=== PATIENT | male | born 1960 | race Caucasian/White ===

== ENCOUNTER 2017-11-07 08:00 | Outpatient (CLI) | payer MEDICAID ==
[2017-11-08 11:12] LABS: MUDS CUTOFF CONCENTRATIONS CUTOFF CONC BELOW:
[2017-11-08 11:26] LABS: AMPHETAMINE SCREEN,URINE NEGATIVE (NEGATIVE); BENZODIAZEPINES SCREEN, URINE NEGATIVE (NEGATIVE); COCAINE SCREEN URINE NEGATIVE (NEGATIVE); METHADONE SCREEN, URINE NEGATIVE (NEGATIVE); METHAMPHETAMINES SCREEN, URINE NEGATIVE (NEGATIVE); OPIATE SCREEN, URINE NEGATIVE (NEGATIVE); OXYCODONE SCREEN, URINE NEGATIVE (NEGATIVE); PROPOXYPHENE SCREEN, URINE NEGATIVE (NEGATIVE); TRICYCLIC ANTIDEPRESSANT,URINE NEGATIVE (NEGATIVE)
== END 2017-11-07 23:59 | disposition home or self-care (01) ==
LOC: LAB.R 08:00
PROVIDERS: ATTEND Nurse Practitioner Family
DX: F90.0 Attention-deficit hyperactivity disorder, predominantly inattentive type (principal)
CPT/HCPCS: 80306

== ENCOUNTER 2018-03-06 14:38 | Outpatient (CLI) | payer MEDICAID ==
[2018-03-06 14:54] LABS: MUDS CUTOFF CONCENTRATIONS CUTOFF CONC BELOW:
[2018-03-06 15:09] LABS: AMPHETAMINE SCREEN,URINE POSITIVE (NEGATIVE); BENZODIAZEPINES SCREEN, URINE NEGATIVE (NEGATIVE); COCAINE SCREEN URINE NEGATIVE (NEGATIVE); METHADONE SCREEN, URINE NEGATIVE (NEGATIVE); METHAMPHETAMINES SCREEN, URINE POSITIVE (NEGATIVE); OPIATE SCREEN, URINE NEGATIVE (NEGATIVE); OXYCODONE SCREEN, URINE NEGATIVE (NEGATIVE); PROPOXYPHENE SCREEN, URINE NEGATIVE (NEGATIVE); TRICYCLIC ANTIDEPRESSANT,URINE NEGATIVE (NEGATIVE)
[2018-03-06 15:27] LABS: BASOPHILS # (AUTO) 0.1 10^3/uL (0.0-0.1); BASOPHILS % (AUTO) 0.8 %; EOSINOPHILS # (AUTO) 0.1 10^3/uL (0.0-0.7); EOSINOPHILS % (AUTO) 2.3 %; HGB - HEMOGLOBIN 16.5 g/dL (14.0-18.0); LYMPHOCYTES # (AUTO) 2.3 10^3/uL (1.5-3.5); LYMPHOCYTES % (AUTO) 35.2 %; MEAN CORPUSCULAR HEMOGLOBIN 30.8 pg (27.0-31.0); MEAN CORPUSCULAR HGB CONC 33.7 g/dL (32.0-36.0); MEAN CORPUSCULAR VOLUME 91.3 fL (80.0-94.0); MEAN PLATELET VOLUME 7.7 fL (7.4-11.4); MONOCYTES # (AUTO) 0.7 10^3/uL (0.0-1.0); MONOCYTES % (AUTO) 10.5 %; NEUTROPHILS # (AUTO) 3.4 10^3/uL (1.5-6.6); NEUTROPHILS % (AUTO) 51.2 %; PLT - PLATELET COUNT 219 10^3/uL (130-450); RED BLOOD COUNT 5.36 10^6/uL (4.70-6.10); RED CELL DISTRIBUTION WIDTH 13.7 % (12.0-15.0); WHITE BLOOD COUNT 6.6 x10^3/uL (4.8-10.8)
[2018-03-06 15:38] LABS: ALBUMIN 4.2 g/dL (3.2-5.5); ALBUMIN/GLOBULIN RATIO 1.4 (1.0-2.2); ALKALINE PHOSPHATASE 66 IU/L (42-121); ALT ALANINE AMINOTRANSFERASE 31 IU/L (10-60); AST ASPARTATE AMINOTRANSFERASE 29 IU/L (10-42); BILIRUBIN,TOTAL 0.4 mg/dL (0.2-1.0); BUN - BLOOD UREA NITROGEN 18 mg/dL (6-20); CALCIUM 9.2 mg/dL (8.5-10.3); CARBON DIOXIDE - CO2 23 mmol/L (21-32); CHLORIDE 105 mmol/L (101-111); CREATININE 0.8 mg/dL (0.6-1.2); GFR - MDRD 100 (>89); GLUCOSE 106 mg/dL (70-100); SODIUM 137 mmol/L (135-145); TOTAL PROTEIN 7.2 g/dL (6.7-8.2)
[2018-03-07 12:47] LABS: HEPATITIS C ANTIBODY REACTIVE (NON-REACTIVE)
== END 2018-03-06 14:39 | disposition home or self-care (01) ==
LOC: LAB 14:38
PROVIDERS: ATTEND Nurse Practitioner Family
DX: F41.9 Anxiety disorder, unspecified (principal); F98.8 Other specified behavioral and emotional disorders with onset usually occurring in childhood and adolescence; Z11.59 Encounter for screening for other viral diseases
CPT/HCPCS: 36415; 80053; 80306; 84443; 85025; 86803

== ENCOUNTER 2019-04-23 17:35 | Outpatient (CLI) | payer MEDICAID ==
[2019-04-23 18:03] LABS: INR 1.1 (0.8-1.2)
--- NOTE | 2019-04-26 10:05 | Ultrasound Report ---
Reason: HEPATITIS C VIRAL W/O HEPATIC COMA Procedure Date: 04/23/2019 Accession Number: [id number] / [id number] Procedure: US - Abdomen Limited CPT Code: FULL RESULT: EXAM: ABDOMEN ULTRASOUND LIMITED, RUQ EXAM DATE: 04/23/2019 06:56 PM CLINICAL HISTORY: Hepatitis C viral without hepatic coma. COMPARISON: None. TECHNIQUE: Real-time scanning was performed with static images obtained. FINDINGS: Liver: Mildly coarse and heterogeneous hepatic parenchyma. Numerous hepatic cysts are seen, the largest in the left lobe measuring 1.5 x 1.2 cm and largest in the right lobe measuring 2.4 x 2.1 cm. Ill-defined echogenic focus is seen in the left lobe laterally measuring 0.7 x 0.7 x 0.6 cm and medially 0.6 x 0.8 x 0.6 cm. No intrahepatic ductal dilatation. The liver is not enlarged, 15.6 cm. Main portal vein flow: Hepatopetal. Gallbladder: There is a single mobile gallstone in the gallbladder measuring 0.9 cm. No gallbladder wall thickening. No pericholecystic fluid. Biliary System: CBD measures 5 mm. No intrahepatic or extrahepatic ductal dilatation. Other: The visualized pancreas is unremarkable. Right kidney is normal in contour and echotexture and measures 10.9 cm in maximal length. No hydronephrosis. No renal calculi. No renal masses. IMPRESSION: 1. Mildly heterogeneous and coarse hepatic parenchyma, findings which may be related to patient's history of hepatitis C. Hepatic cysts. Echogenic ill-defined areas within the liver parenchyma in the left lobe indeterminate. Considering patient's history further detail with MRI of the liver recommended. 2. Cholelithiasis. 3. No biliary ductal dilatation. RADIA
[2019-04-26 16:57] LABS: HEPATITIS C VIRAL RNA GENOTYPE 1a
== END 2019-04-23 17:36 | disposition home or self-care (01) ==
LOC: DI 17:35
PROVIDERS: ATTEND Internal Medicine Gastroenterology
DX: B19.20 Unspecified viral hepatitis C without hepatic coma (principal); K76.89 Other specified diseases of liver; K80.20 Calculus of gallbladder without cholecystitis without obstruction
CPT/HCPCS: 36415; 76705; 85610; 87522; 87902

== ENCOUNTER 2019-05-15 12:51 | Outpatient (CLI) | payer MEDICAID ==
[2019-05-15] MEDS ORDERED: GADOBUTROL 15 MMOL/15 ML VIAL ONE (13:32)
[2019-05-15] MEDS ORDERED: GADOBUTROL 15 MMOL/15 ML VIAL IVP ONE (14:14)
--- NOTE | 2019-05-17 09:56 | MRI Report ---
Reason: ABN ABD IMAGING/LIVER,LESIONS,HEP C VIRAL W/O HEPA Procedure Date: 05/15/2019 Accession Number: [id number] / [id number] Procedure: MRI - Abdomen W/WO CPT Code: FULL RESULT: EXAM: MR ABDOMEN WITH AND WITHOUT CONTRAST EXAM DATE: 05/15/2019 02:21 PM. CLINICAL HISTORY: Abnormal abdominal imaging/liver, lesions, Hep C viral without HEPA. COMPARISON: ABDOMEN LIMITED 04/23/2019 6:19 PM CHEST W/ 11/13/2015 12:09 PM. TECHNIQUE: Multiplanar breath-hold T1, T2, and DWI sequences obtained through the liver and abdomen on an MR scanner. Images obtained before and after administration of 10 cc Gadavist intravenous contrast. Multiphase postcontrast sequences obtained through the liver. FINDINGS: Lung Bases: Unremarkable. Liver: There are numerous liver cysts, unchanged since prior studies. These do not enhance. There is a 0.7 cm arterial phase enhancing nodule in segment 3 on (1001/66) which remains hyperenhancing to liver parenchyma on venous and delayed phases. Most consistent with a flash filling hemangioma. No additional arterial phase enhancing lesions. There is a delayed phase 0.7 cm hyperenhancing nodule in segment 2/3 on (1301/81), likely an additional small hemangioma. No additional suspicious enhancing lesions are seen within the liver. No biliary dilatation. Gallbladder: The gallbladder is partially distended and appears normal with no wall thickening or stone. Bile Ducts: No intrahepatic or extrahepatic duct dilatation. Pancreas: The pancreas appears normal with no mass. The pancreatic duct measures 2 mm in diameter and appears normal with no stone or stricture. Spleen: The spleen appears normal. Kidneys: The kidneys appear normal with no mass or hydronephrosis. Adrenals: The adrenals appear normal. Bowel: The visualized segments of the small bowel and colon appear normal with no inflammation or obstruction. Retroperitoneum: The retroperitoneal structures appear normal with no mass or lymphadenopathy. Other: None. IMPRESSION: 1. Two enhancing liver lesions in segment 2 and 3 appear to be small hemangiomas and appear benign. 2. No suspicious arterial phase enhancing lesions are seen. 3. Multiple liver cysts, stable. RADIA
== END 2019-05-15 12:52 | disposition home or self-care (01) ==
LOC: DI 12:51
PROVIDERS: ATTEND Internal Medicine
DX: K76.89 Other specified diseases of liver (principal); B19.20 Unspecified viral hepatitis C without hepatic coma; R93.5 Abnormal findings on diagnostic imaging of other abdominal regions, including retroperitoneum
CPT/HCPCS: 74183; A9585

== ENCOUNTER 2019-07-29 16:27 | Outpatient (CLI) | payer MEDICAID ==
[2019-07-29 16:44] LABS: BASOPHILS % (AUTO) 0.4 %; EOSINOPHILS # (AUTO) 0.1 10^3/uL (0.0-0.7); EOSINOPHILS % (AUTO) 1.9 %; HGB - HEMOGLOBIN 14.7 g/dL (14.0-18.0); LYMPHOCYTES % (AUTO) 37.5 %; MEAN CORPUSCULAR HEMOGLOBIN 29.2 pg (27.0-31.0); MEAN CORPUSCULAR HGB CONC 32.5 g/dL (32.0-36.0); MEAN CORPUSCULAR VOLUME 89.9 fL (80.0-94.0); MEAN PLATELET VOLUME 8.8 fL (7.4-11.4); MONOCYTES # (AUTO) 0.6 10^3/uL (0.0-1.0); MONOCYTES % (AUTO) 11.1 %; NEUTROPHILS # (AUTO) 2.6 10^3/uL (1.5-6.6); NEUTROPHILS % (AUTO) 48.9 %; PLT - PLATELET COUNT 146 10^3/uL (130-450); RED BLOOD COUNT 5.03 10^6/uL (4.70-6.10); RED CELL DISTRIBUTION WIDTH 13.5 % (12.0-15.0); WHITE BLOOD COUNT 5.3 x10^3/uL (4.8-10.8)
[2019-07-29 17:01] LABS: ALBUMIN 4.3 g/dL (3.2-5.5); ALBUMIN/GLOBULIN RATIO 1.5 (1.0-2.2); BILIRUBIN,TOTAL 1.1 mg/dL (0.2-1.0); CALCIUM 9.1 mg/dL (8.5-10.3); TOTAL PROTEIN 7.1 g/dL (6.7-8.2)
== END 2019-07-29 16:28 | disposition home or self-care (01) ==
LOC: LAB 16:27
PROVIDERS: ATTEND Internal Medicine
DX: B19.20 Unspecified viral hepatitis C without hepatic coma (principal)
CPT/HCPCS: 36415; 80053; 85025; 87522

== ENCOUNTER 2019-09-11 09:46 | Outpatient (CLI) | payer MEDICAID ==
[2019-09-11 10:26] LABS: ALBUMIN 3.9 g/dL (3.2-5.5); BILIRUBIN,DIRECT 0.1 mg/dL (0.1-0.5); BILIRUBIN,TOTAL 0.5 mg/dL (0.2-1.0); TOTAL PROTEIN 6.7 g/dL (6.7-8.2)
== END 2019-09-11 09:47 | disposition home or self-care (01) ==
LOC: LAB 09:46
PROVIDERS: ATTEND Internal Medicine
DX: B19.20 Unspecified viral hepatitis C without hepatic coma (principal)
CPT/HCPCS: 36415; 80076; 87522

== ENCOUNTER 2021-08-15 14:42 | Emergency (ER) | payer MEDICAID ==
[2021-08-15] MEDS ORDERED: oxyCODONE 5 MG TABLET PO STA (14:55)
[2021-08-15] MEDS ORDERED: LIDOCAINE 1%-EPI 1:100000 20 ML MDV SUBQ STA (14:55)
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
--- NOTE | 2021-08-15 15:30 | CT Report ---
PROCEDURE: HEAD WO INDICATIONS: head inj TECHNIQUE: Noncontrast 4.5 mm thick angled axial sections acquired from the foramen magnum to the vertex. For r adiation dose reduction, the following was used: automated exposure control, adjustment of mA and/or kV according to patient size. COMPARISON: None. FINDINGS: Image quality: Excellent. CSF spaces: Basal cisterns are patent. No extra-axial fluid collections. Ventricles are normal in size and shape. Brain: No midline shift. No intracranial masses or hemorrhage. Colin-white matter interface is norm al. Skull and face: Calvarium and visualized facial bones are intact, without suspicious lesions. Sinuses: Visualized sinuses and mastoids are clear. IMPRESSION: No acute intracranial abnormality. Reviewed by: Sukhdeep Boucher on 08/15/2021 2:29 PM [facility] Approved by: Sukhdeep Boucher on 08/15/2021 2:29 PM [facility] Station ID: [id number]
--- NOTE | 2021-08-15 15:33 | CT Report ---
PROCEDURE: MAXILLOFACIAL WO INDICATIONS: facial inj TECHNIQUE: Noncontrast 1.5 mm thick axial images acquired from the mandible through the frontal sinuses, with co myah and sagittal reformatting. For radiation dose reduction, the following was used: automated ex posure control, adjustment of mA and/or kV according to patient size. COMPARISON: None. FINDINGS: Image quality: Excellent. Bones and teeth: Orbital butler are intact. Sinus butler show no fracture or deformity. Nasal bones and septum are intact. Visualized portions of the mandible demonstrate no fractures or subluxation. Zygomatic arches are intact. Pterygoid plates are intact. Visualized portions of the skull base an d auditory canals are intact. Sinuses: Paranasal sinuses are aerated, without fluid levels, mucosal thickening, or mucoceles. Mas toid air cells are aerated. Soft tissues: No edema, masses, or fluid collections. No enlarged lymph nodes. No soft tissue lace rations or debris. Vascular: Visualized vascular structures appear normal in the absence of contrast. Bony vascular fo ramina and canals are intact. IMPRESSION: No traumatic abnormality of the maxillofacial bones. Reviewed by: Sukhdeep Boucher on 08/15/2021 2:32 PM [facility] Approved by: Sukhdeep Boucher on 08/15/2021 2:32 PM [facility] Station ID: [id number]
--- NOTE | 2021-08-15 15:35 | CT Report ---
PROCEDURE: CERVICAL SPINE WO INDICATIONS: head inj TECHNIQUE: Noncontrast 3 mm thick sections acquired from the skull base to the T4 level. Sagittal and coronal r eformats were then constructed. For radiation dose reduction, the following was used: automated exp osure control, adjustment of mA and/or kV according to patient size. COMPARISON: None. FINDINGS: Image quality: Excellent. Bones: No fractures or dislocations. Visualized superior ribs are intact. Degenerative disc diseas e at C4-5, C5-6, and C6-7. Soft tissues: Prevertebral soft tissues are normal in thickness. No paravertebral hematomas. No ap ical pneumothoraces. IMPRESSION: 1. Degenerative disc disease at C4-5, C5-6, and C6-7. 2. No acute traumatic abnormality of the cervical spine. Reviewed by: Sukhdeep Boucher on 08/15/2021 2:34 PM [facility] Approved by: Sukhdeep Boucher on 08/15/2021 2:34 PM [facility] Station ID: [id number]
[2021-08-15 15:51] VITALS: BP 107/86
== END 2021-08-15 15:51 | disposition home or self-care (01) ==
LOC: ED 14:42
DX: S01.81XA Laceration without foreign body of other part of head, initial encounter (principal); S09.90XA Unspecified injury of head, initial encounter; W18.39XA Other fall on same level, initial encounter; Y93.01 Activity, walking, marching and hiking; Y92.009 Unspecified place in unspecified non-institutional (private) residence as the place of occurrence of the external cause; Z87.891 Personal history of nicotine dependence
CPT/HCPCS: 12011; 70450; 70486; 72125; 99282; 99284; A9270; 80053; 80320; 85025

== ENCOUNTER 2022-04-24 22:23 | Outpatient (CLI) | payer MEDICAID | END 2022-04-24 22:24 | disposition critical access hospital (66) | LOC: EMS 22:23 | DX: R07.81 Pleurodynia (principal) | CPT/HCPCS: A0425; A0427; A0999 ==

== ENCOUNTER 2022-04-24 22:33 | Emergency (ER) | payer MEDICAID ==
[2022-04-24] MEDS ORDERED: ONDANSETRON 4 MG/2 ML VIAL IVP STA (22:58)
[2022-04-24] MEDS ORDERED: SODIUM CHLORIDE 0.9% 1,000 ML IV STA (22:58)
[2022-04-24] MEDS ORDERED: HYDROmorphone 1 MG/ML CARPUJECT IVP STA (22:58)
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
[2022-04-24 23:18] LABS: BASOPHILS % (AUTO) 0.5 %; EOSINOPHILS # (AUTO) 0.2 10^3/uL (0.0-0.7); EOSINOPHILS % (AUTO) 2.6 %; HCT - HEMATOCRIT 41.6 % (42.0-52.0); HGB - HEMOGLOBIN 14.1 g/dL (14.0-18.0); LYMPHOCYTES # (AUTO) 1.1 10^3/uL (1.5-3.5); LYMPHOCYTES % (AUTO) 17.1 %; MEAN CORPUSCULAR HGB CONC 33.9 g/dL (32.0-36.0); MEAN CORPUSCULAR VOLUME 91.4 fL (80.0-94.0); MEAN PLATELET VOLUME 8.9 fL (7.4-11.4); MONOCYTES # (AUTO) 0.6 10^3/uL (0.0-1.0); MONOCYTES % (AUTO) 9.4 %; NEUTROPHILS # (AUTO) 4.4 10^3/uL (1.5-6.6); NEUTROPHILS % (AUTO) 70.1 %; PLT - PLATELET COUNT 152 10^3/uL (130-450); RED BLOOD COUNT 4.55 10^6/uL (4.70-6.10); RED CELL DISTRIBUTION WIDTH 14.4 % (12.0-15.0); WHITE BLOOD COUNT 6.3 x10^3/uL (4.8-10.8)
[2022-04-24 23:23] LABS: PT - PROTHROMBIN TIME 11.4 secs (9.9-12.6)
[2022-04-24 23:29] LABS: ALBUMIN 4.2 g/dL (3.2-5.5); ALBUMIN/GLOBULIN RATIO 1.4 (1.0-2.2); BILIRUBIN,TOTAL 1.1 mg/dL (0.2-1.0); CALCIUM 8.9 mg/dL (8.5-10.3); CREATININE 0.9 mg/dL (0.6-1.2); POTASSIUM 3.7 mmol/L (3.5-5.0); TOTAL PROTEIN 7.1 g/dL (6.7-8.2)
--- NOTE | 2022-04-25 00:20 | CT Report ---
PROCEDURE: HEAD WO INDICATIONS: trauma TECHNIQUE: Noncontrast 4.5 mm thick angled axial sections acquired from the foramen magnum to the vertex. For r adiation dose reduction, the following was used: automated exposure control, adjustment of mA and/or kV according to patient size. COMPARISON: 08/15/2021. FINDINGS: Image quality: Excellent. CSF spaces: Basal cisterns are patent. No extra-axial fluid collections. Ventricles are normal in size and shape. Brain: No intracranial hemorrhage, mass, or mass effect. Colin-white matter interface appears preser miguelangel. Skull and face: Calvarium and visualized facial bones are intact, without suspicious lesions. Sinuses: Visualized sinuses and mastoids are clear. IMPRESSION: 1. No acute intracranial abnormality. Reviewed by: Juan C Zamudio MD on 04/25/2022 12:18 AM PDT Approved by: Juan C Zamudio MD on 04/25/2022 12:18 AM PDT Station ID: [id number]
--- NOTE | 2022-04-25 00:22 | CT Report ---
PROCEDURE: CERVICAL SPINE WO INDICATIONS: trauma TECHNIQUE: Noncontrast 3 mm thick sections acquired from the skull base to the T4 level. Sagittal and coronal r eformats were then constructed. For radiation dose reduction, the following was used: automated exp osure control, adjustment of mA and/or kV according to patient size. COMPARISON: CT C-spine 08/15/2021. FINDINGS: Image quality: Excellent. Bones: No fractures or traumatic subluxation. There is slight reversal of the cervical lordosis rede monstrated. There is minimal retrolisthesis at C2-C3 and C3-C4. Multilevel degenerative disc disease and facet joint arthropathy are again noted. Visualized superior ribs are intact. Soft tissues: Prevertebral soft tissues are normal in thickness. No paravertebral hematomas. No ap ical pneumothoraces. IMPRESSION: 1. No acute fracture or subluxation. Reviewed by: Juan C Zamudio MD on 04/25/2022 12:21 AM PDT Approved by: Juan C Zamudio MD on 04/25/2022 12:21 AM PDT Station ID: [id number]
[2022-04-25] MEDS ORDERED: HYDROmorphone 1 MG/ML CARPUJECT IVP STA ×2 (00:23→01:30)
--- NOTE | 2022-04-25 00:30 | CT Report ---
PROCEDURE: CHEST W INDICATIONS: trauma CONTRAST: IV CONTRAST: Optiray 320 ml: 100 PO CONTRAST: *NO PO CONTRAST TECHNIQUE: After the administration of intravenous contrast, 1 mm axial images were acquired from the pulmonary apices through the posterior costophrenic angles. Axial 5 mm soft tissue kernel reconstructions were performed as well as 8 mm axial MIP and coronal and sagittal 5 mm reformations. For radiation dose reduction, the following was used: automated exposure control, adjustment of mA and/or kV according to patient size. COMPARISON: CT chest 11/13/2015. FINDINGS: Image quality: Excellent. Lower Neck: No lymphadenopathy by size criteria. Thyroid: Visualized thyroid demonstrates no discrete nodules. Axillae: No lymphadenopathy by size criteria. Chest Wall: Unremarkable. Bones: There are minimally displaced fractures of the left fifth through seventh ribs anterolaterally . Visualized osseous structures demonstrate no suspicious lesions. Lungs and Airways: No pulmonary contusions or lacerations. There are severe paraseptal and centrilobu lar exhibits changes. Mild linear atelectasis is demonstrated within the right middle lobe along the major fissure. Mild dependent atelectasis also demonstrated bilaterally in the lower lobes. The trach ea and central airways are patent. Pleura: There is a small left pleural effusion. No pneumothorax. Heart: Heart size is normal. No pericardial effusion. Thoracic Vessels: There is mild aneurysmal dilatation of the thoracic aorta. The ascending aorta billy ures up to 4.0 cm in diameter. The aortic arch measures up to 3.5 cm at the vertex. The proximal desc ending thoracic aorta measures up to 3.0 cm. The distal descending thoracic aorta measures up to 2.5 cm at the level of the diaphragmatic hiatus. Pulmonary arteries appear within normal size limits. Mediastinum and Naomi: No lymphadenopathy by size criteria. Esophagus: No wall thickening. No hiatal hernia. Abdomen: Visualized upper abdomen demonstrates multiple hepatic cysts as well as additional small lo w-density foci within the partially visualized liver which are too small to characterize but likely r epresent cysts. IMPRESSION: 1. Minimally displaced fractures of the left fifth through seventh ribs. 2. Small left pleural effusion. No evidence of pneumothorax. 3. Severe centrilobular and paraseptal emphysematous changes redemonstrated bilaterally. Reviewed by: Juan C Thacker MD on 04/25/2022 12:29 AM PDT Approved by: Juan C Thacker MD on 04/25/2022 12:29 AM PDT Station ID: [id number]
--- NOTE | 2022-04-25 00:35 | CT Report ---
PROCEDURE: Abdomen/Pelvis W INDICATIONS: trauma CONTRAST: IV CONTRAST: Optiray 320 ml: 100 PO CONTRAST: *NO PO CONTRAST TECHNIQUE: After the administration of intravenous contrast, 5 mm thick sections acquired from the diaphragms to the symphysis. 5 mm thick coronal and sagittal reformats were acquired. For radiation dose reducti on, the following was used: automated exposure control, adjustment of mA and/or kV according to lit ent size. COMPARISON: Concurrent CT of the chest. FINDINGS: Image quality: Excellent. Lung bases:There are centrilobular and paraseptal emphysematous changes within the visualized lung b ases. Bibasilar areas of atelectasis and scarring are demonstrated. There is a small left pleural eff usion. Heart: Heart is normal in size. ABDOMEN: Liver:No evidence of hepatic laceration or hematoma. Numerous hepatic cysts are demonstrated as well as additional small low-density foci which are too small to characterize but likely represent cysts. Gallbladder: Within normal limits without calcified gallstones. Biliary ducts: No biliary ductal dilatation. Pancreas: Unremarkable. Spleen: Normal in size. No evidence of splenic laceration. Adrenal Glands: No adrenal nodules. Kidneys and Ureters: No hydronephrosis. There is a nonobstructing stone within the right kidney billy uring up to 0.3 cm. Stomach and Bowel: Stomach, small bowel loops, and colon are normal in caliber and wall thickness. T here is colonic diverticulosis without acute diverticulitis. Peritoneum: No abnormal intraperitoneal fluid. No free air. Ventral Wall: No hernia. Abdominal Nodes: No retroperitoneal or mesenteric adenopathy by size criteria. Vessels: Aorta and inferior vena cava are normal in size. PELVIS: Pelvic Organs:There is mild heterogeneous enlargement of the prostate.. Bladder: Unremarkable. Pelvic Nodes: No enlarged lymph nodes. Miscellaneous: There are small bilateral fat-containing inguinal hernias. Bones: Visualized osseous structures demonstrate no suspicious focal lesions. IMPRESSION: 1. No acute traumatic abnormality within the abdomen and pelvis. Reviewed by: Juan C Zamudio MD on 04/25/2022 12:34 AM PDT Approved by: Juan C Zamudio MD on 04/25/2022 12:34 AM PDT Station ID: [id number]
[2022-04-25] MEDS ORDERED: GABAPENTIN 100 MG CAPSULE PO STA (00:37)
[2022-04-25] MEDS ORDERED: LIDOCAINE PATCH 5% TOP STA (00:38)
[2022-04-25] MEDS ORDERED: KETOROLAC 30 MG/ML VIAL IVP STA (00:38)
[2022-04-25] MEDS ORDERED: IPRATROPIUM/ALBUTEROL 3 ML NEB INH STA (01:00)
[2022-04-25] MEDS ORDERED: oxyCODONE/ACET 5/325 Prepack 4 PO STA (01:31)
[2022-04-25 01:42] VITALS: BP 146/96
== END 2022-04-25 01:47 | disposition home or self-care (01) ==
LOC: EDUNIT# → ED 22:33
DX: S22.42XA Multiple fractures of ribs, left side, initial encounter for closed fracture (principal); V28.4XXA Motorcycle driver injured in noncollision transport accident in traffic accident, initial encounter; Y93.55 Activity, bike riding; J43.9 Emphysema, unspecified; Z87.891 Personal history of nicotine dependence
CPT/HCPCS: 36415; 70450; 71260; 72125; 74177; 80053; 83690; 85025; 85610; 93005; 94640; 96361; 96374; 96375; 96376; 99284; 99285; A9270; J1170; Q9967

== ENCOUNTER 2023-02-07 18:28 | Outpatient (CLI) | payer MEDICAID | END 2023-02-07 18:29 | disposition critical access hospital (66) | LOC: EMS 18:28 | DX: R06.02 Shortness of breath (principal); R07.9 Chest pain, unspecified; M54.9 Dorsalgia, unspecified | CPT/HCPCS: A0425; A0429; A0999 ==

== ENCOUNTER 2023-02-07 18:39 | Emergency (ER) | payer MEDICAID ==
[2023-02-07] MEDS ORDERED: HYDROmorphone 0.5 MG/0.5 ML SYRINGE IVP STA (18:58)
[2023-02-07] MEDS ORDERED: KETOROLAC 15 MG/ML VIAL IVP STA (18:59)
[2023-02-07] MEDS ORDERED: IPRATROPIUM/ALBUTEROL 3 ML NEB INH STA (18:59)
--- NOTE | 2023-02-07 19:39 | ED Physician Documentation ---
PD HPI DYSPNEA - Stated complaint Stated Complaint: SOA - Chief complaint Chief Complaint: Cardiac - History obtained from History obtained from: Patient - Additional information Additional information: HPI from patient. Patient complains of chest pressure, across his anterior chest, associated with shortness of breath. He feels that the chest is tight and constricted. He feels that, overall, the symptoms are reminiscent of the symptoms associated with prior pneumothoraces. Symptoms were of rapid onset at 5 PM today while at home and at rest. The shortness of breath is exacerbated with exertion, partially relieved but not resolved with rest. Patient has COPD and uses 2 L nasal cannula of oxygen per minute most days and nights, "but only when I feel I really need it" (per patient). Review of Systems Constitutional: denies: Fever, Chills, Sweats Cardiac: reports: Chest pain / pressure. denies: Palpitations, Pedal edema Respiratory: reports: Dyspnea, Cough. denies: Wheezing GI: reports: Reviewed and negative PD PAST MEDICAL HISTORY - Past Medical History Cardiovascular: None Respiratory: Sleep apnea Endocrine/Autoimmune: None GI: None : None Psych: Depression, Anxiety, Panic attacks, ADD/ADHD, Claustrophobia Musculoskeletal: None Derm: None - Past Surgical History Past Surgical History: Yes HEENT: Tonsil/Adenoidectomy - Present Medications Home Medications: Ambulatory Orders Medication Instructions Recorded Confirmed Albuterol 2.5 mg INH Q4H PRN 04/24/22 04/24/22 Citalopram [CeleXA] 10 mg PO DAILY 04/24/22 04/24/22 Acetaminophen [Pain Relief] 650 mg PO Q8HR #60 tablet 04/25/22 Gabapentin [Neurontin] 100 mg PO TID #60 cap 04/25/22 Ibuprofen [Motrin] 1 tablet PO Q8H PRN #30 tablet 04/25/22 Lidocaine Patch 5% [Lidoderm Patch] 1 patch TOP DAILY #30 patch 04/25/22 oxyCODONE [Roxicodone] 5 mg PO Q6H PRN #10 tablet 04/25/22 - Allergies Allergies/Adverse Reactions: Allergies Allergy/AdvReac Type Severity Reaction Status Date / Time No Known Drug Allergies Allergy Verified 04/24/22 22:44 - Social History Does the pt smoke?: No Smoking Status: Former smoker Does the pt drink ETOH?: Yes PD ED PE NORMAL - Vitals Vital signs reviewed: Yes - General General: Alert and oriented X 3, No acute distress, Well developed/nourished - HEENT HEENT: Moist mucous membranes - Cardiac Cardiac: RRR, No murmur - Respiratory Respiratory: No respiratory distress - Extremities Extremities: No edema PD ED PE EXPANDED - Respiratory Respiratory: Decreased breath sounds (bilateral bases, more pronounced on right) Results - Vitals Vitals: Vital Signs - 24 hr 02/07/23 02/07/23 02/07/23 21:20 21:30 22:52 Heart Rate 100 94 104 H Respiratory 24 20 18 Rate Blood Pressure 107/82 H 107/82 H 117/86 H O2 Saturation 100 96 96 If not protocol 3 4 2 : Oxygen Flow, liters/minute Oxygen O2 Source Nasal cannula Oxygen Flow Rate 4 - EKG (time done) No standard instances EKG releavant findings:: EKG personally interpreted by author of this note. Relevant findings are: Rate: Rate (enter#) - Labs Labs: Laboratory Tests 02/07/23 02/07/23 02/07/23 20:00 20:00 20:00 WBC 9.7 RBC 3.75 L Hgb 11.0 L Hct 33.8 L MCV 90.1 MCH 29.3 MCHC 32.5 RDW 13.3 Plt Count 138 MPV 9.2 Neut # (Auto) 7.7 H Lymph # (Auto) 1.1 L [place] # (Auto) 0.8 Eos # (Auto) 0.1 Baso # (Auto) 0.0 Absolute Nucleated RBC 0.00 Nucleated RBC % 0.0 Sodium 137 Potassium 4.1 Chloride 104 Carbon Dioxide 26 Anion Gap 7.0 BUN 26 H Creatinine 1.7 H Estimated GFR (MDRD) 41 L Glucose 116 H Calcium 8.4 L Total Bilirubin 0.8 AST 16 ALT 14 Alkaline Phosphatase 53 Troponin I High Sens 34.6 H* Total Protein 6.8 Albumin 3.5 Globulin 3.3 Albumin/Globulin Ratio 1.1 Lipase 32 02/07/23 22:08 WBC RBC Hgb Hct MCV MCH MCHC RDW Plt Count MPV Neut # (Auto) Lymph # (Auto) [place] # (Auto) Eos # (Auto) Baso # (Auto) Absolute Nucleated RBC Nucleated RBC % Sodium Potassium Chloride Carbon Dioxide Anion Gap BUN Creatinine Estimated GFR (MDRD) Glucose Calcium Total Bilirubin AST ALT Alkaline Phosphatase Troponin I High Sens 34.3 H* Total Protein Albumin Globulin Albumin/Globulin Ratio Lipase - Rads (name of study) chest xray Relevant Findings:: Prelim report reviewed, See rad report (Radiologist interpretation is "no acute cardiopulmonary process. Emphysematous change. Large left lower lobe bleb.") PD Medical Decision Making - ED course Complexity details: reviewed results, re-evaluated patient, considered differential, d/w patient ED course: No pneumothorax on chest x-ray, although a large left lower lobe pulmonary bleb is noted by radiology. He is given a DuoNeb early in the stay and reports modest degree of improvement with this.He is subsequently given an albuterol neb, as well as 125 mg Solu- Medrol intravenously. Although there is no wheezing on the pulmonary auscultation exam, as mentioned above, he does have areas of greatly diminished breath sounds that do not necessarily correlate with the location of the bleb on the chest x-ray.Given his history of COPD, it is possible that the diminished breath sounds and shortness of breath is due to exacerbation of his COPD. hs-cTn 34.6, representing mildly elevated result. 2 hour repeat is 34.3, representing no significant change and thus reassuring (making ACS unlikely). He reports feeling much improved with duoneb and solu-medrol . Mildly elevated bun/creatinine; previous kidney function tests have been normal. Results d/w patient and I advised him to seek follow up with PMD for reevaluation including the abnormal bun/creatinine. Departure - Departure Disposition: 01 Home, Self Care Clinical Impression: Abnormal kidney function Chest pain Qualifiers: Chest pain type: unspecified Qualified Code(s): R07.9 - Chest pain, unspecified Condition: Good Instructions: ED Chest Pain Atypical Unkn Cause Follow-Up: Miryam Bojorquez PA [Primary Care Provider] - Within 1 week Comments: There were no concerning nor diagnostic findings on tonight's test. The chest x-ray did not show any evidence of a collapsed lung (pneumothorax). The chest x-ray did demonstrate a large right-sided lung bleb; This is often associated with collapsed lung (often can be the cause). As we discussed, your kidney function tests (blood test) were abnormally elevated. Looking at previous such numbers on my records, this appears to be new compared to last year. The kidney tests are not alarmingly elevated, but certainly, you should follow-up with your primary care provider for reevaluation of this finding alone. Your cardiac enzyme blood test was very slightly elevated; sometimes, this indicates there is a cardiac problem despite an unremarkable EKG. Fortunately, when the same test was repeated 2 hours later, the result was the same. Concern is raised in this scenario only if the cardiac enzyme further elevates after be ing rechecked. The fact that it remained approximately the same as the first result is reassuring and would suggest against an acute process such as angina or heart attack. Discharge Date/Time: 02/07/23 23:06
--- NOTE | 2023-02-07 19:40 | XRAY Report ---
PROCEDURE: Chest 1 View X-Ray INDICATIONS: chest pain/dyspnea TECHNIQUE: One view of the chest was acquired. COMPARISON: CT chest 04/24/2022. CXR 06/21/2017. FINDINGS: Surgical changes and devices: None. Lungs and pleura: No pleural effusions or pneumothorax. Emphysematous change. The lungs appear clear . Large bleb at the right lower lobe. Mediastinum: Mediastinal contours appear normal. Heart size is within normal limits. Bones and chest wall: No suspicious bony lesions. Overlying soft tissues appear unremarkable. IMPRESSION: No acute cardiopulmonary process. Emphysematous change. Large left lower lobe bleb. Reviewed by: Tim Dubose MD on 02/07/2023 7:39 PM PDT Approved by: Tim Dubose MD on 02/07/2023 7:39 PM PDT Station ID: [id number]
[2023-02-07 20:06] LABS: BASOPHILS % (AUTO) 0.2 %; EOSINOPHILS # (AUTO) 0.1 10^3/uL (0.0-0.7); EOSINOPHILS % (AUTO) 0.7 %; HCT - HEMATOCRIT 33.8 % (42.0-52.0); LYMPHOCYTES # (AUTO) 1.1 10^3/uL (1.5-3.5); LYMPHOCYTES % (AUTO) 11.5 %; MEAN CORPUSCULAR HEMOGLOBIN 29.3 pg (27.0-31.0); MEAN CORPUSCULAR HGB CONC 32.5 g/dL (32.0-36.0); MEAN CORPUSCULAR VOLUME 90.1 fL (80.0-94.0); MEAN PLATELET VOLUME 9.2 fL (7.4-11.4); MONOCYTES # (AUTO) 0.8 10^3/uL (0.0-1.0); MONOCYTES % (AUTO) 7.7 %; NEUTROPHILS # (AUTO) 7.7 10^3/uL (1.5-6.6); NEUTROPHILS % (AUTO) 79.5 %; PLT - PLATELET COUNT 138 10^3/uL (130-450); RED BLOOD COUNT 3.75 10^6/uL (4.70-6.10); RED CELL DISTRIBUTION WIDTH 13.3 % (12.0-15.0); WHITE BLOOD COUNT 9.7 x10^3/uL (4.8-10.8)
[2023-02-07] MEDS ORDERED: ALBUTEROL NEB 2.5 MG/3 ML INH STA (20:12)
[2023-02-07] MEDS ORDERED: DEXAMETHASONE 10 MG/ML VIAL IVP STA (20:12)
[2023-02-07] MEDS ORDERED: methylPREDNISolone SUCCINATE 125 MG/2 ML VIAL IVP STA (20:20)
[2023-02-07 20:22] LABS: ALBUMIN 3.5 g/dL (3.2-5.5); ALBUMIN/GLOBULIN RATIO 1.1 (1.0-2.2); BILIRUBIN,TOTAL 0.8 mg/dL (0.2-1.0); CALCIUM 8.4 mg/dL (8.5-10.3); CREATININE 1.7 mg/dL (0.6-1.2); POTASSIUM 4.1 mmol/L (3.5-5.0); TOTAL PROTEIN 6.8 g/dL (6.7-8.2)
[2023-02-07 22:54] VITALS: BP 117/86
== END 2023-02-07 23:06 | disposition home or self-care (01) ==
LOC: EDUNIT# → ED 18:39
DX: R07.9 Chest pain, unspecified (principal); R94.4 Abnormal results of kidney function studies; J44.9 Chronic obstructive pulmonary disease, unspecified; Z99.81 Dependence on supplemental oxygen
CPT/HCPCS: 36415; 71045; 80053; 83690; 84484; 85025; 93005; 94640; 96374; 96375; 99283; 99284; J1170

== ENCOUNTER 2023-06-26 14:50 | Outpatient (CLI) | payer MEDICAID | END 2023-06-26 14:51 | disposition critical access hospital (66) | LOC: EMS 14:50 | DX: R06.02 Shortness of breath (principal); R06.2 Wheezing; R06.1 Stridor; R45.89 Other symptoms and signs involving emotional state; R61 Generalized hyperhidrosis; Z99.81 Dependence on supplemental oxygen | CPT/HCPCS: A0425; A0427; A0999 ==

== ENCOUNTER 2023-06-26 15:00 | Inpatient (IN) | payer MEDICAID ==
[2023-06-26] MEDS ORDERED: ALBUTEROL NEB 2.5 MG/3 ML INH STA (15:05)
[2023-06-26] MEDS ORDERED: LORazepam 2 MG/ML VIAL IVP STA (15:15)
[2023-06-26 15:32] LABS: BASOPHILS # (AUTO) 0.1 10^3/uL (0.0-0.1); BASOPHILS % (AUTO) 0.8 %; EOSINOPHILS # (AUTO) 0.2 10^3/uL (0.0-0.7); HCT - HEMATOCRIT 34.1 % (42.0-52.0); HGB - HEMOGLOBIN 10.7 g/dL (14.0-18.0); LYMPHOCYTES # (AUTO) 1.5 10^3/uL (1.5-3.5); LYMPHOCYTES % (AUTO) 13.5 %; MEAN CORPUSCULAR HEMOGLOBIN 29.2 pg (27.0-31.0); MEAN CORPUSCULAR HGB CONC 31.4 g/dL (32.0-36.0); MEAN CORPUSCULAR VOLUME 92.9 fL (80.0-94.0); MONOCYTES % (AUTO) 9.6 %; NEUTROPHILS % (AUTO) 73.5 %; PLT - PLATELET COUNT 223 10^3/uL (130-450); RED BLOOD COUNT 3.67 10^6/uL (4.70-6.10); RED CELL DISTRIBUTION WIDTH 13.8 % (12.0-15.0); WHITE BLOOD COUNT 10.9 x10^3/uL (4.8-10.8)
--- NOTE | 2023-06-26 15:32 | ED Physician Documentation ---
History of Present Illness - Stated complaint Stated Complaint: COPD EXACERBATION - Chief complaint Chief Complaint: Resp - Additonal information Additional information: Six 62-year-old male presents emergency department for evaluation of acute onset dyspnea and concern for COPD exacerbation. Patient does have a history of oxygen dependent COPD. He began having acute shortness of air about 90 minutes prior to arrival that failed to resolve with the use of ipratropium and albuterol nebulizers. EMS noted that he had saturations of 92%. They administered him a DuoNeb in route as well as gave 125 mg of Solu-Medrol. Presentation to the emergency department the patient is alert though tachycardic with a heart rate in the 140s. He is tripoding and quite tachypneic with respiratory rate in the high 30s. Saturating 92% on nasal cannula. Cardiopulmonary auscultation reveals diffuse absent breath sounds in both of his lung nunez. Only very very faint scattered wheezes are noted. I immediately requested RT to the bedside. Patient is quite anxious and therefore I ordered 1 mg of Ativan IV and able to help with anxiolysis. Patient may require BiPAP moving forward. Historically he does have a large bleb in the right lower lobe of his lung. My interpretation of his initial chest x-ray this is again redemonstrated. Review of Systems Constitutional: denies: Fever Ears: reports: Reviewed and negative Respiratory: reports: Dyspnea GI: reports: Reviewed and negative : reports: Reviewed and negative Skin: reports: Reviewed and negative PD PAST MEDICAL HISTORY - Past Medical History Past Medical History: Yes Cardiovascular: None Respiratory: Sleep apnea Endocrine/Autoimmune: None GI: None : None Psych: Depression, Anxiety, Panic attacks, ADD/ADHD, Claustrophobia Musculoskeletal: None Derm: None - Past Surgical History Past Surgical History: Yes HEENT: Tonsil/Adenoidectomy - Present Medications Home Medications: Ambulatory Orders Medication Instructions Recorded Confirmed Albuterol 2.5 mg INH Q4H PRN 04/24/22 04/24/22 Citalopram [CeleXA] 10 mg PO DAILY 04/24/22 04/24/22 Acetaminophen [Pain Relief] 650 mg PO Q8HR #60 tablet 04/25/22 Gabapentin [Neurontin] 100 mg PO TID #60 cap 04/25/22 Ibuprofen [Motrin] 1 tablet PO Q8H PRN #30 tablet 04/25/22 Lidocaine Patch 5% [Lidoderm Patch] 1 patch TOP DAILY #30 patch 04/25/22 oxyCODONE [Roxicodone] 5 mg PO Q6H PRN #10 tablet 04/25/22 - Allergies Allergies/Adverse Reactions: Allergies Allergy/AdvReac Type Severity Reaction Status Date / Time No Known Drug Allergies Allergy Verified 06/26/23 15:13 - Social History Does the pt smoke?: No Smoking Status: Never smoker Does the pt drink ETOH?: Yes Does the pt have substance abuse?: No PD ED PE NORMAL - General General: No: No acute distress (respiratory distress) - HEENT HEENT: PERRL - Neck Neck: Supple, no meningeal sign - Cardiac Cardiac: Strong equal pulses. No: RRR (tachycardic on monitor) - Respiratory Respiratory: No respiratory distress (Respiratory rate of 35. Tripoding. Diffusely diminished breath sounds in all lung nunez. 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 Relevant findings are: Rate: Rate (enter#) (140) Rhythm: Sinus tachycardia [place]: RAD Intervals: Normal [place]. No: Prolonged QT Ischemia: Non specific changes Compare to prior EKG: Changed from prior EKG Computer interpretation: Agree with computer (quite tachycardic) - Labs Labs: Laboratory Tests 06/26/23 06/26/23 06/26/23 15:08 15:18 15:18 WBC 10.9 H RBC 3.67 L Hgb 10.7 L Hct 34.1 L MCV 92.9 MCH 29.2 MCHC 31.4 L RDW 13.8 Plt Count 223 MPV 10.0 Neut # (Auto) 8.0 H Lymph # (Auto) 1.5 [place] # (Auto) 1.0 Eos # (Auto) 0.2 Baso # (Auto) 0.1 Absolute Nucleated RBC 0.00 Nucleated RBC % 0.0 Sodium 137 Potassium 4.8 H Chloride 101 Carbon Dioxide 32 Anion Gap 4.0 L BUN 29 H Creatinine 1.8 H Estimated GFR (MDRD) 38 L Glucose 178 H Calcium 8.9 Phosphorus 4.3 Magnesium 2.1 Total Bilirubin 0.5 AST 27 ALT 48 Alkaline Phosphatase 71 Total Protein 6.9 Albumin 4.0 Globulin 2.9 Albumin/Globulin Ratio 1.4 Lipase 13 Nasal Adenovirus (PCR) NOT DETECTED Nasal B. parapertussis DNA (PCR) NOT DETECTED Nasal Coronavir 229E PCR NOT DETECTED Nasal Coronavir HKU1 PCR NOT DETECTED Nasal Coronavir NL63 PCR NOT DETECTED Nasal Coronavir OC43 PCR NOT DETECTED Nasal Enterovir/Rhinovir PCR NOT DETECTED Nasal Influenza B PCR NOT DETECTED Nasal Influenza A PCR NOT DETECTED Nasal Parainfluen 1 PCR NOT DETECTED Nasal Parainfluen 2 PCR NOT DETECTED Nasal Parainfluen 3 PCR NOT DETECTED Nasal Parainfluen 4 PCR NOT DETECTED Nasal RSV (PCR) NOT DETECTED Nasal B.pertussis DNA PCR NOT DETECTED Nasal C.pneumoniae (PCR) NOT DETECTED Cristofer Human Metapneumo PCR NOT DETECTED Nasal M.pneumoniae (PCR) NOT DETECTED Nasal SARS-CoV-2 (PCR) NOT DETECTED - Rads (name of study) cxr Relevant Findings:: Final report received (Mild to moderate left perihilar and lower lung opacities, possibly infectious or inflammatory. Lucency seen in the right lower lobe possibly present previously suspected small effusions versus pleural thickening. Consider further CT evaluation if clinically indicated.) PD Medical Decision Making - ED course Complexity details: reviewed results, re-evaluated patient, considered differential, d/w patient ED course: 62-year-old male who has a history of oxygen dependent COPD presents to the emergency department for evaluation of cute onset dyspnea and labored breathing. For EMS they noted that he was tripoding, he had was saturating in the low 90s on his baseline 2 L but was unable to vocalize and he had very poor air entry. EMS administered the patient 125 mg of Solu-Medrol IV and started to DuoNeb in route. On presentation the emergency department the patient was extremely dyspneic with respiratory rate approaching 40. Saturating 92% on room air but he was unable to adequately vocalize and again his air entry remained poor. I initially ordered an hour-long nebulizer but after a few minutes the patient continued to have severe respiratory distress and respiratory therapy at the bedside transition to the patient to high flow nasal cannula 40%. Patient was also quite anxious and he was administered 1 mg of Ativan IV which has helped him to tolerate the high flow nasal cannula. An x-ray of his lungs is interpreted by the radiologist suggest an early pneumonia in the left lower lobe. Blood cultures are pending and I have ordered ceftriaxone and azithromycin. Patient's labs were also evaluated by myself and per my interpretation he has mild leukocytosis with white count of 11,000. Hemoglobin essentially unchanged from baseline and 10.7 today. He does have some acute on chronic kidney disease. BUN 29 creatinine 1.8 today. In comparison to a BUN of 26 and creatinine 1.7 in January of this year. The rest of his electrolytes were without acute findings. Respiratory PCR was negative. On reevaluation the patient's symptoms are improving however clinically he is not stable for discharge home. He will require admission for treatment of his pneumonia and further stabilization of his respiratory distress. I have spoken with Dr. Francois who graciously agrees to bring the patient in for further evaluation and management of his pneumonia and acute COPD exacerbation. Departure - Departure Disposition: [facility] Clinical Impression: Pneumonia, COPD with acute exacerbation Forms: PCP List
[2023-06-26 15:46] LABS: ALBUMIN/GLOBULIN RATIO 1.4 (1.0-2.2); BILIRUBIN,TOTAL 0.5 mg/dL (0.2-1.0); CALCIUM 8.9 mg/dL (8.5-10.3); CREATININE 1.8 mg/dL (0.6-1.3); MAGNESIUM 2.1 mg/dL (1.7-2.3); PHOSPHORUS 4.3 mg/dL (2.5-5.0); POTASSIUM 4.8 mmol/L (3.5-4.5); TOTAL PROTEIN 6.9 g/dL (6.4-8.9)
--- NOTE | 2023-06-26 15:58 | XRAY Report ---
PROCEDURE: Chest 1 View X-Ray INDICATIONS: Chest Pain TECHNIQUE: One view of the chest was acquired. COMPARISON: 02/07/2023 FINDINGS: Surgical changes and devices: None. Lungs and pleura: Mild to moderate left perihilar and lower lung opacity. Small bilateral pleural ef fusions versus pleural thickening. Lucency is seen in the right lower lobe, probably present previous ly as well. Mediastinum: Heart size is borderline. Bones and chest wall: Degenerative changes. IMPRESSION: Mild to moderate left perihilar and lower lung opacities, possibly infectious/inflammatory. Lucency i s seen in the right lower lobe, possibly present previously. Suspected small effusions versus pleural thickening. Consider further evaluation with CT if clinically indicated. Reviewed by: Oumar Hudson MD on 06/26/2023 3:57 PM PST Approved by: Oumar Hudson MD on 06/26/2023 3:57 PM PST Station ID: [id number]
[2023-06-26 16:11] LABS: B. PARAPERTUSSIS- RESP PCR PAN NOT DETECTED; B. PERTUSSIS- RESP PCR PANEL NOT DETECTED; C. PNEUMONIAE- RESP PCR PANEL NOT DETECTED; CORONAVIRUS 229E-RESP PCR NOT DETECTED; CORONAVIRUS HKU1-RESP PCR NOT DETECTED; CORONAVIRUS NL63-RESP PCR NOT DETECTED; CORONAVIRUS OC43-RESP PCR NOT DETECTED; HUMAN METAPNEUMOVIRUS NOT DETECTED; INFLUENZA A- RESP PCR PANEL NOT DETECTED; INFLUENZA B - RESP PCR PANEL NOT DETECTED; M. PNEUMONIAE- RESP PCR PANEL NOT DETECTED; PARAINFLUENZA VIRUS 1 NOT DETECTED; PARAINFLUENZA VIRUS 2 NOT DETECTED; PARAINFLUENZA VIRUS 3 NOT DETECTED; PARAINFLUENZA VIRUS 4 NOT DETECTED; RHINOVIRUS/ENTEROVIRUS NOT DETECTED; RSV- RESP PCR PANEL NOT DETECTED; SARS-CoV-2 -RESP PCR PANEL NOT DETECTED
[2023-06-26] MEDS ORDERED: cefTRIAXone 1 GM VIAL IVP STA (16:19)
[2023-06-26] MEDS ORDERED: AZITHROMYCIN INJ 500 MG in SODIUM CHLORIDE 0.9% 250 ML IV STA (16:19)
[2023-06-26] MEDS ORDERED: ONDANSETRON 4 MG/2 ML VIAL IVP PRN (16:32)
[2023-06-26] MEDS ORDERED: IPRATROPIUM/ALBUTEROL 3 ML NEB INH PRN (16:44)
--- NOTE | 2023-06-26 17:18 | HISTORY & PHYSICAL EXAMINATION ---
Chief Complaint - Chief Complaint Chief Complaint: SOA History of Present Illness - Admitted From Admitted From:: ED - History Obtained From History obtained from: ED provider and the patient - History of Present Illness HPI Comment/Other: This is a 62-year-old male who is an ex-alcoholic, and has a history of COPD and is on home oxygen. He is on 2L/min at rest and 4 L/min with activity. He has been more SOB the past 3 mos but describes rapidly worsening shortness of breath today, with a productive cough of green sputum. He was brought into the ER by EMS who had administered nebulizers and Solu-Medrol 125 mg iv. Despite this he had tripoding, rapid breathing with respiratory rate 35-40. He was wearing his own home oxygen and O2 saturation was 92%. Exam showed severe respiratory distress, tripoding, unable to finish complete sentences, tachypnea and no air movement on exam with scattered wheezes. He was administered more DuoNebs and IV steroids. He needed increase of his FiO2 up to high flow nasal cannula because he refused to put on BiPAP. With that his respiratory rate slowly improved very minimally. Chest x-ray showed left lower lobe infiltrate. WBC 10, L.A. neg, creat inceased slightly from his baseline CKD. The patient had blood cultures drawn and was started on Zithromax and Ceftriaxone. The ED provider then spoke to me about this patient. He still has a high respiratory rate and will be admitted to the ICU since he may need BiPAP management if he tires. I spoke to pt about his CODE BLUE wishes and he wants to be a Full Code. He would also agree to be on ventilator if needed. History - Past Medical History Cardiovascular: reports: None Respiratory: reports: COPD (on home O2), Sleep apnea, Other (3 episodes of spontaneous pneumothorax) Neuro: reports: None Endocrine/Autoimmune: reports: None GI: reports: None, Other (Had liver problems when drank alot, quit alcohol abuse 1 year ago) : reports: None HEENT: reports: None Psych: reports: Depression, Anxiety, Panic attacks, ADD/ADHD, Claustrophobia Musculoskeletal: reports: None Derm: reports: None MRSA Hx?: No - Past Surgical History HEENT: reports: Tonsil/Adenoidectomy - Family & Social History Family History Comment/Other: He has 2 brothers and 2 sisters. He has 1 daughter. 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 He quit smoking many years ago. He used to drink 1-2 bottles of vodka a day, he stopped that less than a year ago completely for 4 mos. Now he drinks 1-3 beers about 2 times a week. He uses no illicit drugs. - Substance History Use: Uses substance without health or social issues: NONE Meds/Allgy - Home Medications Home Medications: Ambulatory Orders Medication Instructions Recorded Confirmed Albuterol 2.5 mg INH Q4H PRN 04/24/22 04/24/22 Citalopram [CeleXA] 10 mg PO DAILY 04/24/22 04/24/22 Acetaminophen [Pain Relief] 650 mg PO Q8HR #60 tablet 04/25/22 Gabapentin [Neurontin] 100 mg PO TID #60 cap 04/25/22 Ibuprofen [Motrin] 1 tablet PO Q8H PRN #30 tablet 04/25/22 Lidocaine Patch 5% [Lidoderm Patch] 1 patch TOP DAILY #30 patch 04/25/22 oxyCODONE [Roxicodone] 5 mg PO Q6H PRN #10 tablet 04/25/22 - Allergies Allergies/Adverse Reactions: Allergies Allergy/AdvReac Type Severity Reaction Status Date / Time No Known Drug Allergies Allergy Verified 06/26/23 15:13 Review of Systems - Constitutional Constitutional: reports: Weakness - Respiratory Respiratory: reports: Cough, Sputum production, Wheezing, Orthopnea, SOB at rest, SOB with exertion - Psychiatric Psychiatric: reports: Depression (and panic attacks) - All Other Systems All Other Systems: reports: Reviewed and negative Exam - Vital Signs Vital Signs: Vital Signs x48h Temp Pulse Resp BP Pulse Ox O2 Flow Rate 06/26/23 17:00 109 H 23 121/95 H 96 06/26/23 15:58 139 H 33 H 147/112 H 100 06/26/23 15:23 140 H 36 H 2 06/26/23 15:10 36.9 C 139 H 40 H 155/115 H 100 - Physical Exam General Appearance: positive: Mild distress (wearing O2 per HiFlow. Cannot finish a sentence due to SOB.), Other (Long arrieta, long hair.) Eyes Bilateral: positive: Normal inspection, EOMI ENT: positive: ENT inspection nml, No signs of dehydration Neck: positive: Other (cannot visualizedue to long arrieta down to chest) Respiratory: positive: Wheezes, Other (Very poor air movement in all lung nunez. Increased AP diameter.) Cardiovascular: positive: Regular rate & rhythm (distant heart sounds due to COPD air trapping (incr AP diameter)), No murmur Abdomen: positive: Non-tender, Nml bowel sounds, Other (Mildly distended. Enlarged liver. No fluid wave.) Skin: positive: Warm, Dry Extremities: positive: Non-tender, No pedal edema Neurologic/Psychiatric: positive: Oriented x3, Motor nml, Sensation nml Sepsis Event Note (H) - Evaluation Current Stage of Sepsis: Ruled out Possible source of Sepsis: positive: Pulmonary - Sepsis Criteria Sepsis Criteria: Recorded Heart Rate greater than 90 bpm, Recorded Respiratory Rate greater than 20 Conclusion/Plan - Problem List (1) COPD with acute exacerbation Conclusion/Plan: Probably caused by the pneumonia Because of the rapid onset of his shortness of breath however, we will rule out a cardiac event and/or an acute PE Plan: Admit to the ICU Continue with supplemental O2, with saturation target of 89-94% in a COPDer Continue with scheduled nebulizers 4 times daily and every 4 hours as needed Give Pulmicort nebulizer twice daily Continue with IV steroids, high-dose Solumedrol 125 mg QID Start Montelukast qpm Begin Mucinex for expectoration Treat the underlying pneumonia Check troponins x2 to rule out CT and place on telemetry Obtain CTA chest to rule out PE. If the patient will not be able to lie supine, we will start empiric treatment for PE with Lovenox twice daily, then stop Lovenox if no PE. (2) CAP (community acquired pneumonia) Conclusion/Plan: Patient presented with marked tachypnea and severe respiratory distress with tripoding. His PSI equals 102 (class IV) given his age, renal disease, high respiratory rate and tachycardia heart rate, thus he will be admitted to Inpatient status. This patient's resting EKG shows sinus tachycardia, rate 130, right axis deviation (these findings suggest he has Cor Pulmonale) Plan: Will obtain respiratory culture to tailor antibiotics if it grows bacteria Continue with empiric IV ceftriaxone and IV Zithromax. Start probiotic as well (3) Acute kidney injury superimposed on CKD Conclusion/Plan: His baseline creat runs 1.4 (from EMR review). He presented with creat 1.8. Plan: Avoid nephrotoxins Follow BMP daily - Lab Results Fish Bones: 06/26/23 15:18 06/26/23 15:18 - Diagnostic Imaging Results Diagnostic Imaging Results: positive: Final report reviewed - Other Other Results/Comments: Attestation: The patient is expected to be hospitalized for greater than 2 midnights and is expected to be discharged or transferred to another facility within 96 hours: Yes.
[2023-06-26 18:02] LABS: ABG BASE EXCESS -0.4 mmol/L (-2.0-3.0); ABG HCO3 23.8 mmol/L (22.0-26.0); ABG OXYGEN SATURATION 96 % (94-98); ABG PCO2 38 mmHg (34-45); ABG PH 7.42 (7.35-7.45); ABG PO2 86 mmHg (80-100); ALLEN TEST POSITIVE
[2023-06-26] MEDS: SODIUM CHLORIDE FLUSH 0.9% 10 ML SYRINGE IVP SCH (18:16)
[2023-06-26] MEDS: MORPHINE 2 MG/ML CARPUJECT IVP PRN ×2 (18:25→20:38)
[2023-06-26] MEDS: ACETAMINOPHEN 325 MG TABLET PO PRN (19:53)
[2023-06-26] MEDS: BUDESONIDE 0.5 MG/2 ML NEB INH SCH (20:20)
[2023-06-26] MEDS: IPRATROPIUM/ALBUTEROL 3 ML NEB INH SCH (20:20)
[2023-06-26] MEDS: ENOXAPARIN 80 MG/0.8 ML SYRINGE SUBQ SCH (20:39)
[2023-06-26] MEDS: SODIUM CHLORIDE FLUSH 0.9% 10 ML SYRINGE IVP PRN ×2 (20:39→21:34)
[2023-06-26] MEDS: guaiFENesin 600 MG TABLET PO SCH (20:39)
[2023-06-26] MEDS ORDERED: HEPARIN 5,000 UNIT/ML VIAL SUBQ SCH (21:00)
[2023-06-26] MEDS: methylPREDNISolone SUCCINATE 125 MG/2 ML VIAL IVP SCH (21:34)
[2023-06-27] MEDS: MORPHINE 2 MG/ML CARPUJECT IVP PRN ×4 (00:26→17:15)
[2023-06-27] MEDS: SODIUM CHLORIDE FLUSH 0.9% 10 ML SYRINGE IVP SCH ×3 (00:31→17:06)
[2023-06-27 05:54] LABS: BASOPHILS % (AUTO) 0.2 %; HCT - HEMATOCRIT 31.1 % (42.0-52.0); HGB - HEMOGLOBIN 9.9 g/dL (14.0-18.0); LYMPHOCYTES # (AUTO) 0.3 10^3/uL (1.5-3.5); LYMPHOCYTES % (AUTO) 5.9 %; MEAN CORPUSCULAR HEMOGLOBIN 28.9 pg (27.0-31.0); MEAN CORPUSCULAR HGB CONC 31.8 g/dL (32.0-36.0); MEAN CORPUSCULAR VOLUME 90.7 fL (80.0-94.0); MEAN PLATELET VOLUME 10.5 fL (7.4-11.4); MONOCYTES # (AUTO) 0.1 10^3/uL (0.0-1.0); MONOCYTES % (AUTO) 1.3 %; NEUTROPHILS # (AUTO) 4.4 10^3/uL (1.5-6.6); NEUTROPHILS % (AUTO) 92.4 %; PLT - PLATELET COUNT 178 10^3/uL (130-450); RED BLOOD COUNT 3.43 10^6/uL (4.70-6.10); WHITE BLOOD COUNT 4.7 x10^3/uL (4.8-10.8)
[2023-06-27] MEDS: methylPREDNISolone SUCCINATE 125 MG/2 ML VIAL IVP SCH ×3 (06:00→21:54)
[2023-06-27] MEDS: SODIUM CHLORIDE FLUSH 0.9% 10 ML SYRINGE IVP PRN ×2 (06:00→21:54)
[2023-06-27 06:10] LABS: CALCIUM, IONIZED 1.09 mmol/L (1.15-1.33); VBG PH 7.386 (7.31-7.41)
[2023-06-27 06:13] LABS: CREATININE 1.8 mg/dL (0.6-1.2); POTASSIUM 4.9 mmol/L (3.5-5.0)
[2023-06-27 06:14] LABS: CALCIUM 8.9 mg/dL (8.5-10.3); MAGNESIUM 2.1 mg/dL (1.7-2.8); PHOSPHORUS 3.7 mg/dL (2.5-4.6); THYROID STIMULATING HORMONE 1.09 uIU/mL (0.34-5.60)
[2023-06-27] MEDS: BUDESONIDE 0.5 MG/2 ML NEB INH SCH ×2 (07:15→18:07)
[2023-06-27] MEDS: IPRATROPIUM/ALBUTEROL 3 ML NEB INH SCH ×4 (07:15→18:07)
[2023-06-27] MEDS: AZITHROMYCIN INJ 500 MG in SODIUM CHLORIDE 0.9% 250 ML IV SCH (08:28)
[2023-06-27] MEDS: guaiFENesin 600 MG TABLET PO SCH ×2 (08:39→20:34)
[2023-06-27] MEDS: LACTOBACILLUS RHAMNOSUS GG CAPSULE PO SCH (08:39)
[2023-06-27] MEDS: ENOXAPARIN 80 MG/0.8 ML SYRINGE SUBQ SCH ×2 (08:41→20:34)
[2023-06-27] MEDS: CALCIUM CARBONATE CHEW 500 MG TABLET PO SCH ×2 (08:47→12:51)
[2023-06-27] MEDS ORDERED: cefTRIAXone 1 GM in SODIUM CHLORIDE 0.9% MINIBAG 100 ML IV SCH (09:00)
[2023-06-27] MEDS ORDERED: cefTRIAXone 1 GM in SODIUM CHLORIDE 0.9% MINIBAG 100 ML IV ONE (10:00)
--- NOTE | 2023-06-27 11:28 | PHARMACY PROGRESS NOTE ---
- Best Possible Medication History Admit Date and Time: 06/26/23 0504 Processed by: Pharmacy Medication History completed: Yes Patient Interview: Pt unable to participate Secondary Source(s): Pharmacy records, Insurance records As the person ultimately responsible for medication therapy, providers are able to order a medication from an existing home medication list in [facility] via the "Reconcile Routine" prior to Confirmation of that medication by applications support specialist. Such practice is discouraged except when the physician, in their clinical judgment, deems that a medical need exists for a medication without regard to previous use.
[2023-06-27] MEDS: GABAPENTIN 100 MG CAPSULE PO SCH ×2 (12:53→21:54)
[2023-06-27] MEDS ORDERED: GABAPENTIN 100 MG CAPSULE ONE (12:59)
[2023-06-27] MEDS: CITALOPRAM 10 MG TABLET PO SCH (14:10)
--- NOTE | 2023-06-27 15:05 | PROVIDER PROGRESS NOTE ---
Assessment/Plan - Problem List (1) COPD with acute exacerbation Assessment/Plan: Patient has been admitted to the ICU. He is requiring high flow nasal cannula at minimal settings. Anticipate he may be able to be weaned down to oxygen mask over the next 24 hours. Continue scheduled DuoNebs and Pulmicort. He is on IV methylprednisolone at 105 mg 4 times daily. He was started on montelukast as well. Troponin was elevated but he is not having any active anginal symptoms. We will continue to monitor. (2) Pneumonia Assessment/Plan: Continue with IV azithromycin and ceftriaxon sputum cultures currently pending. (3) Acute kidney injury superimposed on CKD Assessment/Plan: Mild renal insufficiency. Baseline creatinine appears to be near 1.4. He is at 1.8. We will continue to monitor. - Current Meds Current Meds: Current Medications Generic Name Dose Route Start Last Admin Trade Name Freq PRN Reason Stop Dose Admin Acetaminophen 650 mg 06/26/23 16:32 06/26/23 19:53 Acetaminophen 325 Mg Tablet PO 650 mg Q4HR PRN Administration Pain 1 to 4, or Fever Albuterol/Ipratropium 3 ml 06/26/23 19:00 06/27/23 11:00 Ipratropium/Albuterol 3 Ml Neb INH 3 ml RTQID JOSIAH Administration Budesonide 0.5 mg 06/26/23 19:00 06/27/23 07:15 Budesonide 0.5 Mg/2 Ml Neb INH 0.5 mg RTBID JOSIAH Administration Enoxaparin Sodium 80 mg 06/26/23 21:00 06/27/23 08:41 Enoxaparin 80 Mg/0.8 Ml Syringe SUBQ 80 mg BID JOSIAH Administration Gabapentin 100 mg 06/27/23 14:00 06/27/23 12:53 Gabapentin 100 Mg Capsule PO 100 mg TID JOSIAH Administration Guaifenesin 600 mg 06/26/23 21:00 06/27/23 08:39 Guaifenesin 600 Mg Tablet PO 600 mg BID JOSIAH Administration Azithromycin 500 mg/ Sodium 250 mls @ 250 mls/hr 06/27/23 09:00 06/27/23 08:28 Chloride IV 06/29/23 00:01 250 mls/hr DAILY JOSIAH Administration Lactobacillus Rhamnosus 1 cap 06/27/23 09:00 06/27/23 08:39 Lactobacillus Rhamnosus Gg Capsule PO 1 cap DAILY JOSIAH Administration Methylprednisolone Sodium Succinate 125 mg 06/26/23 22:00 06/27/23 14:07 Methylprednisolone Succinate 125 Mg/2 Ml Vial IVP 125 mg TID JOSIAH Administration Morphine Sulfate 1 mg 06/26/23 16:32 06/27/23 14:15 Morphine 2 Mg/Ml Carpuject IVP 1 mg Q2HR PRN Administration Dyspnea Sodium Chloride 10 ml 06/26/23 17:00 06/27/23 08:48 Sodium Chloride Flush 0.9% 10 Ml Syringe IVP 10 ml 0100,0900,1700 JOSIAH Administration Sodium Chloride 10 ml 06/26/23 16:32 06/27/23 06:00 Sodium Chloride Flush 0.9% 10 Ml Syringe IVP 10 ml PRN PRN Administration NEEDED PER PROVIDER ORDERS - Lab Result Fish Bone Diagrams: 06/27/23 04:13 06/27/23 04:13 - Additional Planning My Orders: My Active Orders 06/27/23 Evaluate and Treat OT [OT] Routine Evaluate and Treat PT [PT] Routine 06/27/23 11:22 oxyCODONE [Roxicodone] 5 mg PO Q6H PRN 06/27/23 12:00 Citalopram [CeleXA] 10 mg PO DAILY 06/27/23 14:00 Gabapentin [Neurontin] 100 mg PO TID Subjective - Subjective Patient Reports: Feeling Better, Cough, Shortness of Breath Nursing Reports: Cough Objective Vital Signs: Vital Signs - 24 hr 06/26/23 06/26/23 06/26/23 15:10 15:23 15:58 Temperature 36.9 C Heart Rate 139 H 140 H 139 H Heart Rate [ Monitoring electrodes] Respiratory 40 H 36 H 33 H Rate Blood Pressure 155/115 H 147/112 H Blood Pressure [Right Brachial artery] O2 Saturation 100 100 If not protocol 2 : Oxygen Flow, liters/minute 06/26/23 06/26/23 06/26/23 17:00 17:27 17:33 Temperature Heart Rate 109 H Heart Rate [ 115 H Monitoring electrodes] Respiratory 23 26 H Rate Blood Pressure 121/95 H Blood Pressure 125/88 H [Right Brachial artery] O2 Saturation 96 96 If not protocol 2 30 : Oxygen Flow, liters/minute 06/26/23 06/26/23 06/26/23 18:00 19:00 20:00 Temperature 36.8 C 36.9 C Heart Rate Heart Rate [ 114 H 125 H 112 H Monitoring electrodes] Respiratory 28 H 23 25 H Rate Blood Pressure Blood Pressure 114/92 H 124/99 H 123/90 H [Right Brachial artery] O2 Saturation 97 98 98 If not protocol 30 30 30 : Oxygen Flow, liters/minute 06/26/23 06/26/23 06/26/23 20:20 21:00 22:00 Temperature Heart Rate 109 H Heart Rate [ 115 H 109 H Monitoring electrodes] Respiratory 30 H 29 H 22 Rate Blood Pressure Blood Pressure 108/80 115/83 H [Right Brachial artery] O2 Saturation 97 98 If not protocol 35 30 30 : Oxygen Flow, liters/minute 06/26/23 06/27/23 06/27/23 23:00 00:00 06:00 Temperature 37.0 C Heart Rate Heart Rate [ 105 H 106 H 105 H Monitoring electrodes] Respiratory 24 18 22 Rate Blood Pressure Blood Pressure 108/81 H 118/90 H 114/88 H [Right Brachial artery] O2 Saturation 98 96 98 If not protocol 30 30 30 : Oxygen Flow, liters/minute 06/27/23 06/27/23 06/27/23 07:00 07:17 08:00 Temperature 36.3 C L Heart Rate 105 H Heart Rate [ 104 H 106 H Monitoring electrodes] Respiratory 23 21 21 Rate Blood Pressure Blood Pressure 102/85 H 124/98 H [Right Brachial artery] O2 Saturation 95 94 If not protocol 30 35 : Oxygen Flow, liters/minute 06/27/23 06/27/23 06/27/23 09:00 10:00 11:00 Temperature Heart Rate Heart Rate [ 116 H 117 H 115 H Monitoring electrodes] Respiratory 23 20 21 Rate Blood Pressure Blood Pressure 115/85 H 123/85 H 97/83 H [Right Brachial artery] O2 Saturation 96 98 97 If not protocol : Oxygen Flow, liters/minute 06/27/23 06/27/23 06/27/23 11:03 12:00 13:00 Temperature 36.5 C Heart Rate 114 H Heart Rate [ 116 H 112 H Monitoring electrodes] Respiratory 22 20 27 H Rate Blood Pressure Blood Pressure 133/94 H 114/91 H [Right Brachial artery] O2 Saturation 96 96 If not protocol 30 : Oxygen Flow, liters/minute 06/27/23 14:00 Temperature Heart Rate Heart Rate [ 114 H Monitoring electrodes] Respiratory 23 Rate Blood Pressure Blood Pressure 115/90 H [Right Brachial artery] O2 Saturation 95 If not protocol : Oxygen Flow, liters/minute Oxygen O2 Source HHFNC Oxygen Flow Rate 6 I&O (Last 24 Hrs): Intake and Output Totals x24h 06/25/23 06/26/23 06/27/23 23:59 23:59 23:59 Intake Total 970 1170 Output Total 150 150 Balance 820 1020 General: Alert, Oriented x3, Cooperative, No acute distress HEENT: Atraumatic, PERRLA, EOMI Neck: Supple, No JVD, No thyromegaly, +2 carotid pulse wo bruit, No LAD Lymphatic: no adenopathy Neuro: Alert, CN 2-12 Grossly Intact, Oriented Times 3 Cardiovascular: Regular rate, Normal S1, Normal S2, No murmurs Respiratory: Chest non-tender, No respiratory distress, Breath sounds nml Abdomen: Normal bowel sounds, Soft, No tenderness, No hepatospenomegaly, No masses Genitourinary: Normal Inspection, No Mass, No Discharge, No Meatal Blood, No Hernia Rectal: Non-Tender Extremities: No clubbing, No cyanosis, No edema, Normal pulses, No tenderness/swelling Skin: No rashes, No breakdown, No significant lesion - Results Results: Laboratory Results WBC 4.7 x10^3/uL (4.8-10.8) L 06/27/23 04:13 RBC 3.43 10^6/uL (4.70-6.10) L 06/27/23 04:13 Hgb 9.9 g/dL (14.0-18.0) L 06/27/23 04:13 Hct 31.1 % (42.0-52.0) L 06/27/23 04:13 MCV 90.7 fL (80.0-94.0) 06/27/23 04:13 MCH 28.9 pg (27.0-31.0) 06/27/23 04:13 MCHC 31.8 g/dL (32.0-36.0) L 06/27/23 04:13 RDW 14.0 % (12.0-15.0) 06/27/23 04:13 Plt Count 178 10^3/uL (130-450) 06/27/23 04:13 MPV 10.5 fL (7.4-11.4) 06/27/23 04:13 Neut # (Auto) 4.4 10^3/uL (1.5-6.6) 06/27/23 04:13 Lymph # (Auto) 0.3 10^3/uL (1.5-3.5) L 06/27/23 04:13 [place] # (Auto) 0.1 10^3/uL (0.0-1.0) 06/27/23 04:13 Eos # (Auto) 0.0 10^3/uL (0.0-0.7) 06/27/23 04:13 Baso # (Auto) 0.0 10^3/uL (0.0-0.1) 06/27/23 04:13 Absolute Nucleated RBC 0.00 x10^3/uL 06/27/23 04:13 Nucleated RBC % 0.0 /100WBC 06/27/23 04:13 Bld Gas Analysis Time 19006/26/23 17:50 Sample Site RIGHT RADIAL 06/26/23 17:50 ABG pH 7.42 (7.35-7.45) 06/26/23 17:50 ABG pCO2 38 mmHg (34-45) 06/26/23 17:50 ABG pO2 86 mmHg (80-100) 06/26/23 17:50 ABG HCO3 23.8 mmol/L (22.0-26.0) 06/26/23 17:50 ABG Total CO2 25.0 MMOL/L (21.0-29.0) 06/26/23 17:50 ABG O2 Saturation 96 % (94-98) 06/26/23 17:50 ABG Base Excess -0.4 mmol/L (-2.0-3.0) 06/26/23 17:50 Tarun Test POSITIVE 06/26/23 17:50 VBG pH 7.386 (7.31-7.41) 06/27/23 04:13 Ionized Calcium 1.09 mmol/L (1.15-1.33) L 06/27/23 04:13 O2 Liters/Min 30.00 LPM 06/26/23 17:50 FiO2 33.00 06/26/23 17:50 Sodium 136 mmol/L (135-145) 06/27/23 04:13 Potassium 4.9 mmol/L (3.5-5.0) 06/27/23 04:13 Chloride 102 mmol/L (101-111) 06/27/23 04:13 Carbon Dioxide 24 mmol/L (21-32) 06/27/23 04:13 Anion Gap 10.0 (6-13) 06/27/23 04:13 BUN 36 mg/dL (6-20) H 06/27/23 04:13 Creatinine 1.8 mg/dL (0.6-1.2) H 06/27/23 04:13 Estimated GFR (MDRD) 38 (>89) L 06/27/23 04:13 Glucose 165 mg/dL (70-100) H 06/27/23 04:13 Calcium 8.9 mg/dL (8.5-10.3) 06/27/23 04:13 Phosphorus 3.7 mg/dL (2.5-4.6) 06/27/23 04:13 Magnesium 2.1 mg/dL (1.7-2.8) 06/27/23 04:13 Total Bilirubin 0.5 mg/dL (0.2-1.0) 06/26/23 15:18 AST 27 IU/L (10-42) 06/26/23 15:18 ALT 48 IU/L (10-60) 06/26/23 15:18 Alkaline Phosphatase 71 IU/L (42-121) 06/26/23 15:18 Troponin I High Sens 51.8 ng/L (2.3-19.7) H* 06/26/23 18:16 Total Protein 6.9 g/dL (6.4-8.9) 06/26/23 15:18 Albumin 4.0 g/dL (3.2-5.5) 06/26/23 15:18 Globulin 2.9 g/dL (2.1-4.2) 06/26/23 15:18 Albumin/Globulin Ratio 1.4 (1.0-2.2) 06/26/23 15:18 Lipase 13 U/L (11-82) 06/26/23 15:18 TSH 1.09 uIU/mL (0.34-5.60) 06/27/23 04:13 Nasal Adenovirus (PCR) NOT DETECTED 06/26/23 15:08 Nasal B. parapertussis DNA (PCR) NOT DETECTED 06/26/23 15:08 Nasal Coronavir 229E PCR NOT DETECTED 06/26/23 15:08 Nasal Coronavir HKU1 PCR NOT DETECTED 06/26/23 15:08 Nasal Coronavir NL63 PCR NOT DETECTED 06/26/23 15:08 Nasal Coronavir OC43 PCR NOT DETECTED 06/26/23 15:08 Nasal Enterovir/Rhinovir PCR NOT DETECTED 06/26/23 15:08 Nasal Influenza B PCR NOT DETECTED 06/26/23 15:08 Nasal Influenza A PCR NOT DETECTED 06/26/23 15:08 Nasal Parainfluen 1 PCR NOT DETECTED 06/26/23 15:08 Nasal Parainfluen 2 PCR NOT DETECTED 06/26/23 15:08 Nasal Parainfluen 3 PCR NOT DETECTED 06/26/23 15:08 Nasal Parainfluen 4 PCR NOT DETECTED 06/26/23 15:08 Nasal RSV (PCR) NOT DETECTED 06/26/23 15:08 Nasal Screen MRSA (PCR) NEGATIVE (NEGATIVE) 06/26/23 17:30 Nasal B.pertussis DNA PCR NOT DETECTED 06/26/23 15:08 Nasal C.pneumoniae (PCR) NOT DETECTED 06/26/23 15:08 Cristofer Human Metapneumo PCR NOT DETECTED 06/26/23 15:08 Nasal M.pneumoniae (PCR) NOT DETECTED 06/26/23 15:08 Nasal SARS-CoV-2 (PCR) NOT DETECTED 06/26/23 15:08 - Procedures Procedures: Procedures COLONOSCOPY (01/21/14) DRAINAGE OF R PLEURAL CAV WITH DRAIN DEV, PERC APPROACH (11/06/15) REMOVAL OF DRAIN DEV FROM R PLEURAL CAV, EXECUTIVE COMMUNICATIONS MANAGER APPROACH (11/06/15) Sepsis Event Note (H) - Evaluation Current Stage of Sepsis: Ruled out Possible source of Sepsis: positive: Pulmonary - Sepsis Criteria Sepsis Criteria: Recorded Heart Rate greater than 90 bpm, Recorded Respiratory Rate greater than 20
[2023-06-27] MEDS: ACETAMINOPHEN 325 MG TABLET PO PRN (17:15)
[2023-06-27] MEDS: oxyCODONE 5 MG TABLET PO PRN (17:17)
[2023-06-27] MEDS ORDERED: LIDOCAINE VISCOUS 2% 15 ML ORAL SYRINGE MM PRN (20:03)
[2023-06-27] MEDS: MAG HYDROX/AL HYDROX/SIMETH 30 ML UDC PO PRN (20:35)
[2023-06-27] MEDS ORDERED: LIDOCAINE VISCOUS 2% 15 ML UDC ONE (20:36)
--- NOTE | 2023-06-27 20:58 | PROVIDER PROGRESS NOTE ---
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 is c/o upset stomach, no nausea and is requesting something for it. Pt. admitted here on 05/26 for Hypoxia, COPD Exacerbation, CAP and is on HHFNC at 30L and 30% Fi02. Pt. also is not on any GI prophylaxis" GI cocktal ordered q 8 hrs prn upset stomach
[2023-06-28] MEDS: oxyCODONE 5 MG TABLET PO PRN ×4 (00:07→20:04)
[2023-06-28] MEDS: SODIUM CHLORIDE FLUSH 0.9% 10 ML SYRINGE IVP SCH ×3 (01:10→17:46)
[2023-06-28 04:58] LABS: CALCIUM, IONIZED 1.11 mmol/L (1.15-1.33); VBG PH 7.403 (7.31-7.41)
[2023-06-28 04:59] LABS: HCT - HEMATOCRIT 31.1 % (42.0-52.0); HGB - HEMOGLOBIN 9.7 g/dL (14.0-18.0); LYMPHOCYTES # (AUTO) 0.4 10^3/uL (1.5-3.5); LYMPHOCYTES % (AUTO) 5.4 %; MEAN CORPUSCULAR HEMOGLOBIN 29.1 pg (27.0-31.0); MEAN CORPUSCULAR HGB CONC 31.2 g/dL (32.0-36.0); MEAN CORPUSCULAR VOLUME 93.4 fL (80.0-94.0); MEAN PLATELET VOLUME 10.6 fL (7.4-11.4); MONOCYTES # (AUTO) 0.2 10^3/uL (0.0-1.0); MONOCYTES % (AUTO) 3.5 %; NEUTROPHILS # (AUTO) 6.2 10^3/uL (1.5-6.6); NEUTROPHILS % (AUTO) 90.7 %; PLT - PLATELET COUNT 199 10^3/uL (130-450); RED BLOOD COUNT 3.33 10^6/uL (4.70-6.10); WHITE BLOOD COUNT 6.8 x10^3/uL (4.8-10.8)
[2023-06-28 05:04] LABS: PHOSPHORUS 4.8 mg/dL (2.5-5.0)
[2023-06-28 05:07] LABS: CALCIUM 9.1 mg/dL (8.5-10.3); CREATININE 2.1 mg/dL (0.6-1.3); POTASSIUM 6.3 mmol/L (3.5-4.5)
[2023-06-28] MEDS ORDERED: INSULIN REGULAR HUMAN 300 UNIT/3 ML VIAL SUBQ ONE (05:23)
[2023-06-28] MEDS ORDERED: CALCIUM GLUCONATE IN NS 0.9% 2,000 MG/100 ML BAG IV ONE (05:23)
--- NOTE | 2023-06-28 05:28 | PROVIDER PROGRESS NOTE ---
Procedures Tech Note - Procedures Tech Note Procedures Tech Note: RN paged to report K 6.3. noted concurrent renal failure. will recheck. cover with calcium gluconate/ insulin/ dextrose/ sodium zirconium. day team to followup repeat electrolyte at [address] Oh DO Internal Medicine Sound
[2023-06-28] MEDS ORDERED: INSULIN REGULAR HUMAN 300 UNIT/3 ML VIAL IVP ONE (05:38)
[2023-06-28] MEDS ORDERED: DEXTROSE 50% ABBOJECT 25 GM/50 ML SYRINGE IVP ONE (06:00)
[2023-06-28] MEDS: methylPREDNISolone SUCCINATE 125 MG/2 ML VIAL IVP SCH ×3 (06:09→21:23)
[2023-06-28] MEDS: GABAPENTIN 100 MG CAPSULE PO SCH ×3 (06:10→21:23)
[2023-06-28] MEDS: SODIUM CHLORIDE FLUSH 0.9% 10 ML SYRINGE IVP PRN (06:10)
[2023-06-28] MEDS: BUDESONIDE 0.5 MG/2 ML NEB INH SCH ×2 (07:18→18:16)
[2023-06-28] MEDS: IPRATROPIUM/ALBUTEROL 3 ML NEB INH SCH ×4 (07:18→18:16)
[2023-06-28] MEDS ORDERED: SODIUM CHLORIDE 0.9% 1,000 ML IV ONE (07:29)
[2023-06-28 07:46] LABS: CREATININE 2.1 mg/dL (0.6-1.3); POTASSIUM 5.6 mmol/L (3.5-4.5)
[2023-06-28] MEDS: ACETAMINOPHEN 325 MG TABLET PO PRN ×2 (07:52→13:53)
[2023-06-28] MEDS ORDERED: FUROSEMIDE 20 MG/2 ML VIAL IVP ONE (08:00)
[2023-06-28] MEDS: SODIUM ZIRCONIUM CYCLOSILICATE 5 GM PACKET PO SCH (08:18)
[2023-06-28] MEDS: VENLAFAXINE ER 75 MG CAPSULE PO SCH (08:21)
[2023-06-28] MEDS: CITALOPRAM 10 MG TABLET PO SCH (08:21)
[2023-06-28] MEDS: LACTOBACILLUS RHAMNOSUS GG CAPSULE PO SCH (08:26)
[2023-06-28] MEDS: guaiFENesin 600 MG TABLET PO SCH ×2 (08:26→21:23)
[2023-06-28] MEDS: ENOXAPARIN 80 MG/0.8 ML SYRINGE SUBQ SCH (08:33)
[2023-06-28] MEDS: cefTRIAXone 2 GM in SODIUM CHLORIDE 0.9% MINIBAG 100 ML IV SCH (08:58)
[2023-06-28] MEDS: AZITHROMYCIN INJ 500 MG in SODIUM CHLORIDE 0.9% 250 ML IV SCH (09:40)
[2023-06-28] MEDS: LIDOCAINE PATCH 5% TOP SCH (09:41)
[2023-06-28 11:46] LABS: POTASSIUM 5.5 mmol/L (3.5-4.5)
[2023-06-28] MEDS ORDERED: SODIUM ZIRCONIUM CYCLOSILICATE 5 GM PACKET PO ONE (14:00)
--- NOTE | 2023-06-28 15:05 | PROVIDER PROGRESS NOTE ---
Assessment/Plan - Problem List (1) COPD with acute exacerbation Assessment/Plan: --Successfully weaned from Optiflow to nasal cannula. -- Continue scheduled DuoNeb and Pulmicort. --Continue IV methylprednisolone for another day. Can likely transition to oral prednisone tomorrow. (2) Pneumonia Assessment/Plan: --Continue IV azithromycin and ceftriaxone. -- Sputum culture positive for Enterobacter cloacae complex. Ceftriaxone will provide coverage for this organism. (3) Acute kidney injury superimposed on CKD Assessment/Plan: --Cr mildly elevated however renal function as remained stable. --Continue to monitor with daily BMP. - Current Meds Current Meds: Current Medications Generic Name Dose Route Start Last Admin Trade Name Freq PRN Reason Stop Dose Admin Acetaminophen 650 mg 06/26/23 16:32 06/28/23 13:53 Acetaminophen 325 Mg Tablet PO 650 mg Q4HR PRN Administration Pain 1 to 4, or Fever Al Hydroxide/Mg Hydroxide 30 ml 06/27/23 20:03 06/27/23 20:35 Mag Hydrox/Al Hydrox/Simeth 30 Ml Udc PO 30 ml Q8H PRN Administration Heartburn Albuterol/Ipratropium 3 ml 06/26/23 19:00 06/28/23 11:23 Ipratropium/Albuterol 3 Ml Neb INH 3 ml RTQID JOSIAH Administration Budesonide 0.5 mg 06/26/23 19:00 06/28/23 07:18 Budesonide 0.5 Mg/2 Ml Neb INH 0.5 mg RTBID JOSIAH Administration Citalopram Hydrobromide 10 mg 06/27/23 12:00 06/28/23 08:21 Citalopram 10 Mg Tablet PO 10 mg DAILY JOSIAH Administration Gabapentin 100 mg 06/27/23 14:00 06/28/23 13:47 Gabapentin 100 Mg Capsule PO 100 mg TID JOSIAH Administration Guaifenesin 600 mg 06/26/23 21:00 06/28/23 08:26 Guaifenesin 600 Mg Tablet PO 600 mg BID JOSIAH Administration Azithromycin 500 mg/ Sodium 250 mls @ 250 mls/hr 06/27/23 09:00 06/28/23 09:40 Chloride IV 06/29/23 00:01 250 mls/hr DAILY JOSIAH Administration Ceftriaxone Sodium 2 gm/ 100 mls @ 200 mls/hr 06/28/23 09:00 06/28/23 09:42 Sodium Chloride IV Infused DAILY JOSIAH Infusion Lactobacillus Rhamnosus 1 cap 06/27/23 09:00 06/28/23 08:26 Lactobacillus Rhamnosus Gg Capsule PO 1 cap DAILY JOSIAH Administration Lidocaine 1 patch 06/28/23 09:00 06/28/23 09:41 Lidocaine Patch 5% TOP Not Given DAILY JOSIAH Lidocaine HCl 5 ml 06/27/23 20:03 06/27/23 20:36 Lidocaine Viscous 2% 15 Ml Oral Syringe MM 5 ml Q8H PRN Administration Heartburn Methylprednisolone Sodium Succinate 125 mg 06/26/23 22:00 06/28/23 13:47 Methylprednisolone Succinate 125 Mg/2 Ml Vial IVP 125 mg TID JOSIAH Administration Morphine Sulfate 1 mg 06/26/23 16:32 06/27/23 17:15 Morphine 2 Mg/Ml Carpuject IVP 1 mg Q2HR PRN Administration Dyspnea Oxycodone HCl 5 mg 06/27/23 11:22 06/28/23 13:52 Oxycodone 5 Mg Tablet PO 5 mg Q6H PRN Administration PAIN Sodium Chloride 10 ml 06/26/23 17:00 06/28/23 08:36 Sodium Chloride Flush 0.9% 10 Ml Syringe IVP 10 ml 0100,0900,1700 JOSIAH Administration Sodium Chloride 10 ml 06/26/23 16:32 06/28/23 06:10 Sodium Chloride Flush 0.9% 10 Ml Syringe IVP 10 ml PRN PRN Administration NEEDED PER PROVIDER ORDERS Sodium Zirconium Cyclosilicate 10 gm 06/28/23 09:00 06/28/23 08:18 Sodium Zirconium Cyclosilicate 5 Gm Packet PO 06/29/23 09:01 10 gm DAILY JOSIAH Administration Venlafaxine HCl 225 mg 06/28/23 09:00 06/28/23 08:21 Venlafaxine Er 75 Mg Capsule PO 225 mg DAILY JOSIAH Administration - Lab Result Fish Bone Diagrams: 06/28/23 04:37 06/28/23 11:20 - Additional Planning Condition/Complexity: Improved My Orders: My Active Orders 06/28/23 Palliative Care Consult [CONS] Routine 06/28/23 09:00 Lidocaine Patch 5% [Lidoderm Patch] 1 patch TOP DAILY Venlafaxine ER [Effexor ER] 225 mg PO DAILY cefTRIAXone [Rocephin] 2 gm Sodium Chloride 0.9% Minibag [Normal Saline 0.9% Minibag] 100 ml IV DAILY 06/28/23 14:27 Ibuprofen [Motrin] 400 mg PO Q6HR PRN 06/28/23 18:00 POTASSIUM [CHEM] Timed 06/29/23 05:00 BMP - BASIC METABOLIC PANEL [CHEM] DAILYLAB CBC [CBC - COMP BLD CT W/AUTO DIFF] [HEME] DAILYLAB 06/29/23 09:00 Enoxaparin [Lovenox] 40 mg SUBQ DAILY 06/30/23 05:00 BMP - BASIC METABOLIC PANEL [CHEM] DAILYLAB CBC [CBC - COMP BLD CT W/AUTO DIFF] [HEME] DAILYLAB 07/01/23 05:00 BMP - BASIC METABOLIC PANEL [CHEM] DAILYLAB CBC [CBC - COMP BLD CT W/AUTO DIFF] [HEME] DAILYLAB 07/02/23 05:00 BMP - BASIC METABOLIC PANEL [CHEM] DAILYLAB CBC [CBC - COMP BLD CT W/AUTO DIFF] [HEME] DAILYLAB 07/03/23 05:00 BMP - BASIC METABOLIC PANEL [CHEM] DAILYLAB 07/04/23 05:00 BMP - BASIC METABOLIC PANEL [CHEM] DAILYLAB Plan Discussed with:: Patient Subjective - Subjective Patient Reports: Feeling Better (Weaned off of optiflow onto NC. He is near his baseline 2L of oxygen.) Objective Vital Signs: Vital Signs - 24 hr 06/27/23 06/27/23 06/27/23 15:13 16:00 17:00 Temperature Heart Rate 128 H Heart Rate [ 112 H 107 H Monitoring electrodes] Respiratory 22 17 24 Rate Blood Pressure 132/95 H 125/93 H [Right Brachial artery] O2 Saturation 97 97 If not protocol 30 30 : Oxygen Flow, liters/minute 06/27/23 06/27/23 06/27/23 18:00 18:08 19:00 Temperature Heart Rate 109 H Heart Rate [ 110 H 109 H Monitoring electrodes] Respiratory 16 18 23 Rate Blood Pressure 122/92 H 125/90 H [Right Brachial artery] O2 Saturation 98 96 If not protocol 30 35 30 : Oxygen Flow, liters/minute 06/27/23 06/27/23 06/27/23 20:00 21:00 22:00 Temperature 36.5 C Heart Rate Heart Rate [ 108 H 112 H 107 H Monitoring electrodes] Respiratory 21 22 24 Rate Blood Pressure 117/104 H 102/80 102/89 H [Right Brachial artery] O2 Saturation 96 97 96 If not protocol 30 30 30 : Oxygen Flow, liters/minute 06/27/23 06/28/23 06/28/23 23:00 00:00 01:00 Temperature 36.5 C Heart Rate Heart Rate [ 119 H 120 H 102 H Monitoring electrodes] Respiratory 22 31 H 19 Rate Blood Pressure 134/111 H 112/95 H 107/80 [Right Brachial artery] O2 Saturation 99 95 97 If not protocol 30 30 30 : Oxygen Flow, liters/minute 06/28/23 06/28/23 06/28/23 02:00 03:07 04:00 Temperature Heart Rate Heart Rate [ 96 107 H 95 Monitoring electrodes] Respiratory 17 19 15 Rate Blood Pressure 91/78 129/99 H 106/84 H [Right Brachial artery] O2 Saturation 93 97 97 If not protocol 30 30 30 : Oxygen Flow, liters/minute 06/28/23 06/28/23 06/28/23 05:00 06:00 07:00 Temperature 36.6 C Heart Rate Heart Rate [ 100 105 H 108 H Monitoring electrodes] Respiratory 12 17 23 Rate Blood Pressure 122/92 H 113/88 H 135/94 H [Right Brachial artery] O2 Saturation 95 98 99 If not protocol 30 30 30 : Oxygen Flow, liters/minute 06/28/23 06/28/23 06/28/23 07:19 08:00 09:00 Temperature 36.5 C Heart Rate 109 H Heart Rate [ 105 H 108 H Monitoring electrodes] Respiratory 20 19 22 Rate Blood Pressure 125/88 H 119/93 H [Right Brachial artery] O2 Saturation 95 93 If not protocol 35 30 3 : Oxygen Flow, liters/minute 06/28/23 06/28/23 06/28/23 10:00 11:00 11:24 Temperature Heart Rate 107 H Heart Rate [ 105 H 108 H Monitoring electrodes] Respiratory 18 28 H 20 Rate Blood Pressure 116/95 H 112/80 [Right Brachial artery] O2 Saturation 96 If not protocol 3 4 : Oxygen Flow, liters/minute 06/28/23 06/28/23 06/28/23 12:00 13:00 14:00 Temperature Heart Rate Heart Rate [ 103 H Monitoring electrodes] Respiratory Rate Blood Pressure 107/94 H 119/100 H 120/94 H [Right Brachial artery] O2 Saturation 99 105 H If not protocol : Oxygen Flow, liters/minute Oxygen O2 Source Nasal cannula Oxygen Flow Rate 6 I&O (Last 24 Hrs): Intake and Output Totals x24h 06/26/23 06/27/23 06/28/23 23:59 23:59 23:59 Intake Total 970 2310 1600 Output Total 273 074 2991 Balance 820 1510 575 General: Alert, Oriented x3, Cooperative, No acute distress Neuro: Alert, CN 2-12 Grossly Intact, Oriented Times 3 Cardiovascular: Regular rate, Normal S1, Normal S2, No murmurs Respiratory: Chest non-tender, No respiratory distress, Breath sounds nml Abdomen: Normal bowel sounds, Soft, No tenderness, No hepatospenomegaly, No masses Skin: No rashes, No breakdown, No significant lesion - Results Results: Laboratory Results WBC 6.8 x10^3/uL (4.8-10.8) 06/28/23 04:37 RBC 3.33 10^6/uL (4.70-6.10) L 06/28/23 04:37 Hgb 9.7 g/dL (14.0-18.0) L 06/28/23 04:37 Hct 31.1 % (42.0-52.0) L 06/28/23 04:37 MCV 93.4 fL (80.0-94.0) 06/28/23 04:37 MCH 29.1 pg (27.0-31.0) 06/28/23 04:37 MCHC 31.2 g/dL (32.0-36.0) L 06/28/23 04:37 RDW 14.0 % (12.0-15.0) 06/28/23 04:37 Plt Count 199 10^3/uL (130-450) 06/28/23 04:37 MPV 10.6 fL (7.4-11.4) 06/28/23 04:37 Neut # (Auto) 6.2 10^3/uL (1.5-6.6) 06/28/23 04:37 Lymph # (Auto) 0.4 10^3/uL (1.5-3.5) L 06/28/23 04:37 Sully # (Auto) 0.2 10^3/uL (0.0-1.0) 06/28/23 04:37 Eos # (Auto) 0.0 10^3/uL (0.0-0.7) 06/28/23 04:37 Baso # (Auto) 0.0 10^3/uL (0.0-0.1) 06/28/23 04:37 Absolute Nucleated RBC 0.00 x10^3/uL 06/28/23 04:37 Nucleated RBC % 0.0 /100WBC 06/28/23 04:37 Bld Gas Analysis Time 19006/26/23 17:50 Sample Site RIGHT RADIAL 06/26/23 17:50 ABG pH 7.42 (7.35-7.45) 06/26/23 17:50 ABG pCO2 38 mmHg (34-45) 06/26/23 17:50 ABG pO2 86 mmHg (80-100) 06/26/23 17:50 ABG HCO3 23.8 mmol/L (22.0-26.0) 06/26/23 17:50 ABG Total CO2 25.0 MMOL/L (21.0-29.0) 06/26/23 17:50 ABG O2 Saturation 96 % (94-98) 06/26/23 17:50 ABG Base Excess -0.4 mmol/L (-2.0-3.0) 06/26/23 17:50 Tarun Test POSITIVE 06/26/23 17:50 VBG pH 7.403 (7.31-7.41) 06/28/23 04:37 Ionized Calcium 1.11 mmol/L (1.15-1.33) L 06/28/23 04:37 O2 Liters/Min 30.00 LPM 06/26/23 17:50 FiO2 33.00 06/26/23 17:50 Sodium 135 mmol/L (135-145) 06/28/23 11:20 Potassium 5.5 mmol/L (3.5-4.5) H 06/28/23 11:20 Chloride 100 mmol/L (101-111) L 06/28/23 11:20 Carbon Dioxide 23 mmol/L (21-32) 06/28/23 11:20 Anion Gap 12.0 (6-13) 06/28/23 11:20 BUN 57 mg/dL (6-20) H 06/28/23 07:21 Creatinine 2.1 mg/dL (0.6-1.3) H 06/28/23 07:21 Estimated GFR (MDRD) 32 (>89) L 06/28/23 07:21 Glucose 152 mg/dL (74-104) H 06/28/23 07:21 Calcium 10.0 mg/dL (8.5-10.3) 06/28/23 07:21 Phosphorus 4.8 mg/dL (2.5-5.0) 06/28/23 04:37 Magnesium 2.5 mg/dL (1.7-2.3) H 06/28/23 04:37 Total Bilirubin 0.5 mg/dL (0.2-1.0) 06/26/23 15:18 AST 27 IU/L (10-42) 06/26/23 15:18 ALT 48 IU/L (10-60) 06/26/23 15:18 Alkaline Phosphatase 71 IU/L (42-121) 06/26/23 15:18 Troponin I High Sens 51.8 ng/L (2.3-19.7) H* 06/26/23 18:16 Total Protein 6.9 g/dL (6.4-8.9) 06/26/23 15:18 Albumin 4.0 g/dL (3.2-5.5) 06/26/23 15:18 Globulin 2.9 g/dL (2.1-4.2) 06/26/23 15:18 Albumin/Globulin Ratio 1.4 (1.0-2.2) 06/26/23 15:18 Lipase 13 U/L (11-82) 06/26/23 15:18 TSH 1.09 uIU/mL (0.34-5.60) 06/27/23 04:13 Nasal Adenovirus (PCR) NOT DETECTED 06/26/23 15:08 Nasal B. parapertussis DNA (PCR) NOT DETECTED 06/26/23 15:08 Nasal Coronavir 229E PCR NOT DETECTED 06/26/23 15:08 Nasal Coronavir HKU1 PCR NOT DETECTED 06/26/23 15:08 Nasal Coronavir NL63 PCR NOT DETECTED 06/26/23 15:08 Nasal Coronavir OC43 PCR NOT DETECTED 06/26/23 15:08 Nasal Enterovir/Rhinovir PCR NOT DETECTED 06/26/23 15:08 Nasal Influenza B PCR NOT DETECTED 06/26/23 15:08 Nasal Influenza A PCR NOT DETECTED 06/26/23 15:08 Nasal Parainfluen 1 PCR NOT DETECTED 06/26/23 15:08 Nasal Parainfluen 2 PCR NOT DETECTED 06/26/23 15:08 Nasal Parainfluen 3 PCR NOT DETECTED 06/26/23 15:08 Nasal Parainfluen 4 PCR NOT DETECTED 06/26/23 15:08 Nasal RSV (PCR) NOT DETECTED 06/26/23 15:08 Nasal Screen MRSA (PCR) NEGATIVE (NEGATIVE) 06/26/23 17:30 Nasal B.pertussis DNA PCR NOT DETECTED 06/26/23 15:08 Nasal C.pneumoniae (PCR) NOT DETECTED 06/26/23 15:08 Cristofer Human Metapneumo PCR NOT DETECTED 06/26/23 15:08 Nasal M.pneumoniae (PCR) NOT DETECTED 06/26/23 15:08 Nasal SARS-CoV-2 (PCR) NOT DETECTED 06/26/23 15:08 - Procedures Procedures: Procedures COLONOSCOPY (01/21/14) DRAINAGE OF R PLEURAL CAV WITH DRAIN DEV, [facility] APPROACH (11/06/15) REMOVAL OF DRAIN DEV FROM R PLEURAL CAV, [facility] AP[facility] (11/06/15) Sepsis Event Note (H) - Evaluation Current Stage of Sepsis: Ruled out Possible source of Sepsis: positive: Pulmonary - Sepsis Criteria Sepsis Criteria: Recorded Heart Rate greater than 90 bpm, Recorded Respiratory Rate greater than 20 Current Medications - Current Medications Current Medications: Active Medications Generic Name Dose Route Start Last Admin Trade Name Freq PRN Reason Stop Dose Admin Acetaminophen 650 mg 06/26/23 16:32 06/28/23 13:53 Acetaminophen 325 Mg Tablet PO 650 mg Q4HR PRN Administration Pain 1 to 4, or Fever Al Hydroxide/Mg Hydroxide 30 ml 06/27/23 20:03 06/27/23 20:35 Mag Hydrox/Al Hydrox/Simeth 30 Ml Udc PO 30 ml Q8H PRN Administration Heartburn Albuterol/Ipratropium 3 ml 06/26/23 16:44 Ipratropium/Albuterol 3 Ml Neb INH Q4HR PRN Wheezing Albuterol/Ipratropium 3 ml 06/26/23 19:00 06/28/23 11:23 Ipratropium/Albuterol 3 Ml Neb INH 3 ml RTQID JOSIAH Administration Budesonide 0.5 mg 06/26/23 19:00 06/28/23 07:18 Budesonide 0.5 Mg/2 Ml Neb INH 0.5 mg RTBID JOSIAH Administration Citalopram Hydrobromide 10 mg 06/27/23 12:00 06/28/23 08:21 Citalopram 10 Mg Tablet PO 10 mg DAILY JOSIAH Administration Enoxaparin Sodium 40 mg 06/29/23 09:00 Enoxaparin 40 Mg/0.4 Ml Syringe SUBQ DAILY [facility] Gabapentin 100 mg 06/27/23 14:00 06/28/23 13:47 Gabapentin 100 Mg Capsule PO 100 mg TID [facility] [place] Administration Guaifenesin 600 mg 06/26/23 21:00 06/28/23 08:26 Guaifenesin 600 Mg Tablet PO 600 mg BID JOSIAH Administration Azithromycin 500 mg/ Sodium 250 mls @ 250 mls/hr 06/27/23 09:00 06/28/23 09:40 Chloride IV 06/29/23 00:01 250 mls/hr DAILY [facility] [place] Administration Ceftriaxone Sodium 2 gm/ 100 mls @ 200 mls/hr 06/28/23 09:00 06/28/23 09:42 Sodium Chloride IV Infused DAILY [facility] Infusion Ibuprofen 400 mg 06/28/23 14:27 Ibuprofen 400 Mg Tablet PO Q6HR PRN Moderate Pain (Level 4-6) Lactobacillus Rhamnosus 1 cap 06/27/23 09:00 06/28/23 08:26 Lactobacillus Rhamnosus Gg Capsule PO 1 cap DAILY [facility] Administration Lidocaine 1 patch 06/28/23 09:00 06/28/23 09:41 Lidocaine Patch 5% TOP Not Given DAILY [facility] [place] Lidocaine HCl 5 ml 06/27/23 20:03 06/27/23 20:36 Lidocaine Viscous 2% 15 Ml Oral Syringe MM 5 ml Q8H PRN Administration Heartburn Methylprednisolone Sodium Succinate 125 mg 06/26/23 22:00 06/28/23 13:47 Methylprednisolone Succinate 125 Mg/2 Ml Vial IVP 125 mg TID JOSIAH Administration Morphine Sulfate 1 mg 06/26/23 16:32 06/27/23 17:15 Morphine 2 Mg/Ml Carpuject IVP 1 mg Q2HR PRN Administration Dyspnea Multi-Ingredient Mouthwash/Gargle 30 ml 06/27/23 19:50 Gi Cocktail 120 Ml Bottle PO Q8H PRN Heartburn Ondansetron HCl 4 mg 06/26/23 16:32 Ondansetron 4 Mg/2 Ml Vial IVP Q6HR PRN Nausea / Vomiting Oxycodone HCl 5 mg 06/27/23 11:22 06/28/23 13:52 Oxycodone 5 Mg Tablet PO 5 mg Q6H PRN Administration PAIN Sodium Chloride 10 ml 06/26/23 17:00 06/28/23 08:36 Sodium Chloride Flush 0.9% 10 Ml Syringe IVP 10 ml 0100,0900,1700 JOSIAH Administration Sodium Chloride 10 ml 06/26/23 16:32 06/28/23 06:10 Sodium Chloride Flush 0.9% 10 Ml Syringe IVP 10 ml PRN PRN Administration NEEDED PER PROVIDER ORDERS Sodium Zirconium Cyclosilicate 10 gm 06/28/23 09:00 06/28/23 08:18 Sodium Zirconium Cyclosilicate 5 Gm Packet PO 06/29/23 09:01 10 gm DAILY JOSIAH Administration Venlafaxine HCl 225 mg 06/28/23 09:00 06/28/23 08:21 Venlafaxine Er 75 Mg Capsule PO 225 mg DAILY JOSIAH Administration Albuterol 2.5 mg INH Q4H PRN 04/24/22 Citalopram [CeleXA] 10 mg PO DAILY 04/24/22 Fluticasone/Salmeterol [Advair Hfa 115-21 Mcg Inhaler] 2 puffs PO BID 06/27/23 Ipratropium [Atrovent] 2 puffs PO BID 06/27/23 Ipratropium/Albuterol [Duoneb] 3 ml INH Q4H PRN 06/27/23 Venlafaxine ER [Effexor ER] 225 mg PO DAILY 06/27/23
[2023-06-28] MEDS: IBUPROFEN 400 MG TABLET PO PRN (15:19)
[2023-06-29] MEDS: SODIUM CHLORIDE FLUSH 0.9% 10 ML SYRINGE IVP SCH ×3 (02:04→19:53)
[2023-06-29] MEDS: MAG HYDROX/AL HYDROX/SIMETH 30 ML UDC PO PRN ×3 (03:30→18:20)
[2023-06-29 05:55] LABS: HGB - HEMOGLOBIN 9.6 g/dL (14.0-18.0); LYMPHOCYTES # (AUTO) 0.3 10^3/uL (1.5-3.5); LYMPHOCYTES % (AUTO) 4.3 %; MEAN CORPUSCULAR HEMOGLOBIN 28.7 pg (27.0-31.0); MEAN CORPUSCULAR VOLUME 92.8 fL (80.0-94.0); MEAN PLATELET VOLUME 10.5 fL (7.4-11.4); MONOCYTES # (AUTO) 0.4 10^3/uL (0.0-1.0); MONOCYTES % (AUTO) 6.4 %; NEUTROPHILS # (AUTO) 5.6 10^3/uL (1.5-6.6); NEUTROPHILS % (AUTO) 88.5 %; PLT - PLATELET COUNT 202 10^3/uL (130-450); RED BLOOD COUNT 3.34 10^6/uL (4.70-6.10); RED CELL DISTRIBUTION WIDTH 14.3 % (12.0-15.0); WHITE BLOOD COUNT 6.3 x10^3/uL (4.8-10.8)
[2023-06-29 06:13] LABS: CALCIUM 9.2 mg/dL (8.5-10.3); CREATININE 2.4 mg/dL (0.6-1.3); POTASSIUM 5.2 mmol/L (3.5-4.5)
[2023-06-29] MEDS: GABAPENTIN 100 MG CAPSULE PO SCH ×3 (06:17→21:39)
[2023-06-29] MEDS: methylPREDNISolone SUCCINATE 125 MG/2 ML VIAL IVP SCH (06:18)
[2023-06-29] MEDS: ACETAMINOPHEN 325 MG TABLET PO PRN (06:21)
[2023-06-29] MEDS: IPRATROPIUM/ALBUTEROL 3 ML NEB INH SCH ×4 (07:08→19:00)
[2023-06-29] MEDS: BUDESONIDE 0.5 MG/2 ML NEB INH SCH ×2 (07:08→19:00)
[2023-06-29] MEDS ORDERED: SODIUM ZIRCONIUM CYCLOSILICATE 5 GM PACKET PO ONE (08:00)
[2023-06-29] MEDS: PANTOPRAZOLE 40 MG TABLET PO SCH (08:03)
[2023-06-29] MEDS: VENLAFAXINE ER 75 MG CAPSULE PO SCH (08:26)
[2023-06-29] MEDS: LACTOBACILLUS RHAMNOSUS GG CAPSULE PO SCH (08:29)
[2023-06-29] MEDS: MULTIVITAMIN W/MINERALS TABLET PO SCH (08:29)
[2023-06-29] MEDS: CITALOPRAM 10 MG TABLET PO SCH (08:30)
[2023-06-29] MEDS: cefTRIAXone 2 GM in SODIUM CHLORIDE 0.9% MINIBAG 100 ML IV SCH (08:30)
[2023-06-29] MEDS: guaiFENesin 600 MG TABLET PO SCH ×2 (08:30→21:39)
[2023-06-29] MEDS: SODIUM ZIRCONIUM CYCLOSILICATE 5 GM PACKET PO SCH (08:32)
[2023-06-29] MEDS: ENOXAPARIN 40 MG/0.4 ML SYRINGE SUBQ SCH (08:35)
[2023-06-29] MEDS: MORPHINE 2 MG/ML CARPUJECT IVP PRN (10:18)
[2023-06-29] MEDS: SODIUM CHLORIDE FLUSH 0.9% 10 ML SYRINGE IVP PRN (10:23)
--- NOTE | 2023-06-29 12:00 | PROVIDER PROGRESS NOTE ---
Assessment/Plan - Current Meds Current Meds: Current Medications Generic Name Dose Route Start Last Admin Trade Name Freq PRN Reason Stop Dose Admin Acetaminophen 650 mg 06/26/23 16:32 06/29/23 06:21 Acetaminophen 325 Mg Tablet PO 650 mg Q4HR PRN Administration Pain 1 to 4, or Fever Al Hydroxide/Mg Hydroxide 30 ml 06/27/23 20:03 06/29/23 10:23 Mag Hydrox/Al Hydrox/Simeth 30 Ml Udc PO 30 ml Q8H PRN Administration Heartburn Albuterol/Ipratropium 3 ml 06/26/23 19:00 06/29/23 10:21 Ipratropium/Albuterol 3 Ml Neb INH 3 ml RTQID JOSIAH Administration Budesonide 0.5 mg 06/26/23 19:00 06/29/23 07:08 Budesonide 0.5 Mg/2 Ml Neb INH 0.5 mg RTBID JOSIAH Administration Citalopram Hydrobromide 10 mg 06/27/23 12:00 06/29/23 08:30 Citalopram 10 Mg Tablet PO 10 mg DAILY JOSIAH Administration Enoxaparin Sodium 40 mg 06/29/23 09:00 06/29/23 08:35 Enoxaparin 40 Mg/0.4 Ml Syringe SUBQ 40 mg DAILY JOSIAH Administration Gabapentin 100 mg 06/27/23 14:00 06/29/23 06:17 Gabapentin 100 Mg Capsule PO 100 mg TID JOSIAH Administration Guaifenesin 600 mg 06/26/23 21:00 06/29/23 08:30 Guaifenesin 600 Mg Tablet PO 600 mg BID JOSIAH Administration Ceftriaxone Sodium 2 gm/ 100 mls @ 200 mls/hr 06/28/23 09:00 06/29/23 09:40 Sodium Chloride IV Infused DAILY JOSIAH Infusion Ibuprofen 400 mg 06/28/23 14:27 06/28/23 15:19 Ibuprofen 400 Mg Tablet PO 400 mg Q6HR PRN Administration Moderate Pain (Level 4-6) Lactobacillus Rhamnosus 1 cap 06/27/23 09:00 06/29/23 08:29 Lactobacillus Rhamnosus Gg Capsule PO 1 cap DAILY JOSIAH Administration Lidocaine 1 patch 06/28/23 09:00 06/28/23 09:41 Lidocaine Patch 5% TOP Not Given DAILY JOSIAH Lidocaine HCl 5 ml 06/27/23 20:03 06/27/23 20:36 Lidocaine Viscous 2% 15 Ml Oral Syringe MM 5 ml Q8H PRN Administration Heartburn Methylprednisolone Sodium Succinate 125 mg 06/26/23 22:00 06/29/23 06:18 Methylprednisolone Succinate 125 Mg/2 Ml Vial IVP 125 mg TID JOSIAH Administration Morphine Sulfate 1 mg 06/26/23 16:32 06/29/23 10:18 Morphine 2 Mg/Ml Carpuject IVP 1 mg Q2HR PRN Administration Dyspnea Multivitamins/Minerals 1 tab 06/29/23 08:00 06/29/23 08:29 Multivitamin W/Minerals Tablet PO 1 tab DAILYWM JOSIAH Administration Oxycodone HCl 5 mg 06/27/23 11:22 06/28/23 20:04 Oxycodone 5 Mg Tablet PO 5 mg Q6H PRN Administration PAIN Pantoprazole Sodium 40 mg 06/29/23 08:00 06/29/23 08:03 Pantoprazole 40 Mg Tablet PO 40 mg QDAC JOSIAH Administration Sodium Chloride 10 ml 06/26/23 17:00 06/29/23 10:22 Sodium Chloride Flush 0.9% 10 Ml Syringe IVP 10 ml 0100,[id number],1700 JOSIAH Administration Sodium Chloride 10 ml 06/26/23 16:32 06/29/23 10:23 Sodium Chloride Flush 0.9% 10 Ml Syringe IVP 10 ml PRN PRN Administration NEEDED PER PROVIDER ORDERS Venlafaxine HCl 225 mg 06/28/23 09:00 06/29/23 08:26 Venlafaxine Er 75 Mg Capsule PO 225 mg DAILY JOSIAH Administration - Lab Result Fish Bone Diagrams: 06/29/23 05:42 06/29/23 05:42 - Additional Planning My Orders: My Active Orders 06/28/23 14:27 Ibuprofen [Motrin] 400 mg PO Q6HR PRN 06/29/23 08:00 Multivitamin W/Minerals [Theragran M] 1 tab PO DAILYWM Pantoprazole [Protonix] 40 mg PO QDAC 06/29/23 09:00 Enoxaparin [Lovenox] 40 mg SUBQ DAILY 06/30/23 Breakfast Soft Mechanical Diet [DIET] 06/30/23 05:00 BMP - BASIC METABOLIC PANEL [CHEM] DAILYLAB CBC [CBC - COMP BLD CT W/AUTO DIFF] [HEME] DAILYLAB 07/01/23 05:00 BMP - BASIC METABOLIC PANEL [CHEM] DAILYLAB CBC [CBC - COMP BLD CT W/AUTO DIFF] [HEME] DAILYLAB 07/02/23 05:00 BMP - BASIC METABOLIC PANEL [CHEM] DAILYLAB CBC [CBC - COMP BLD CT W/AUTO DIFF] [HEME] DAILYLAB 07/03/23 05:00 BMP - BASIC METABOLIC PANEL [CHEM] DAILYLAB 07/04/23 05:00 BMP - BASIC METABOLIC PANEL [CHEM] DAILYLAB Objective Vital Signs: Vital Signs - 24 hr 06/28/23 06/28/23 06/28/23 13:00 14:00 15:00 Temperature Heart Rate Heart Rate [ 103 H 109 H Monitoring electrodes] Respiratory 22 Rate Blood Pressure 119/100 H 120/94 H 113/83 H [Right Brachial artery] O2 Saturation 105 H 95 If not protocol 4 : Oxygen Flow, liters/minute 06/28/23 06/28/23 06/28/23 15:07 16:00 17:00 Temperature 36.6 C Heart Rate 107 H Heart Rate [ 107 H 108 H Monitoring electrodes] Respiratory 22 22 27 H Rate Blood Pressure 106/93 H 121/94 H [Right Brachial artery] O2 Saturation 98 96 If not protocol 4 4 : Oxygen Flow, liters/minute 06/28/23 06/28/23 06/28/23 18:00 18:16 20:00 Temperature 36.7 C Heart Rate 108 H Heart Rate [ 108 H 105 H Monitoring electrodes] Respiratory 22 21 13 Rate Blood Pressure 123/97 H 122/92 H [Right Brachial artery] O2 Saturation 97 96 If not protocol 4 6 4 : Oxygen Flow, liters/minute 06/28/23 06/28/23 06/28/23 21:00 22:00 23:00 Temperature Heart Rate Heart Rate [ 107 H 105 H 103 H Monitoring electrodes] Respiratory 22 21 19 Rate Blood Pressure 97/81 H 117/90 H [Right Brachial artery] O2 Saturation 96 97 98 If not protocol 4 4 4 : Oxygen Flow, liters/minute 06/29/23 06/29/23 06/29/23 00:00 01:00 02:00 Temperature 36.5 C Heart Rate Heart Rate [ 106 H 109 H 107 H Monitoring electrodes] Respiratory 28 H 33 H 21 Rate Blood Pressure 103/86 H 80/70 L 135/90 H [Right Brachial artery] O2 Saturation 97 96 96 If not protocol 4 4 4 : Oxygen Flow, liters/minute 06/29/23 06/29/23 06/29/23 03:00 04:00 05:00 Temperature 36.5 C Heart Rate Heart Rate [ 103 H 101 H 102 H Monitoring electrodes] Respiratory 20 23 26 H Rate Blood Pressure 124/82 H 128/95 H 124/91 H [Right Brachial artery] O2 Saturation 97 98 98 If not protocol 4 4 4 : Oxygen Flow, liters/minute 06/29/23 06/29/23 06/29/23 06:00 07:00 07:09 Temperature Heart Rate 104 H Heart Rate [ 102 H 103 H Monitoring electrodes] Respiratory 21 17 20 Rate Blood Pressure 118/93 H 126/82 H [Right Brachial artery] O2 Saturation 99 98 If not protocol 4 4 4 : Oxygen Flow, liters/minute 06/29/23 06/29/23 06/29/23 08:00 09:00 10:00 Temperature 36.3 C L Heart Rate Heart Rate [ 105 H 109 H 107 H Monitoring electrodes] Respiratory 22 18 17 Rate Blood Pressure 122/96 H 129/83 H 125/101 H [Right Brachial artery] O2 Saturation 95 98 96 If not protocol 4 4 4 : Oxygen Flow, liters/minute 06/29/23 06/29/23 10:28 11:00 Temperature Heart Rate 108 H Heart Rate [ 106 H Monitoring electrodes] Respiratory 21 16 Rate Blood Pressure 116/86 H [Right Brachial artery] O2 Saturation 93 If not protocol 30 30 : Oxygen Flow, liters/minute Oxygen O2 Source HHFNC Oxygen Flow Rate 6 I&O (Last 24 Hrs): Intake and Output Totals x24h 06/27/23 06/28/23 06/29/23 23:59 23:59 23:59 Intake Total 2310 1950 1500 Output Total 800 1450 1000 Balance 1510 500 500 - Results Results: Laboratory Results WBC 6.3 x10^3/uL (4.8-10.8) 06/29/23 05:42 RBC 3.34 10^6/uL (4.70-6.10) L 06/29/23 05:42 Hgb 9.6 g/dL (14.0-18.0) L 06/29/23 05:42 Hct 31.0 % (42.0-52.0) L 06/29/23 05:42 MCV 92.8 fL (80.0-94.0) 06/29/23 05:42 MCH 28.7 pg (27.0-31.0) 06/29/23 05:42 MCHC 31.0 g/dL (32.0-36.0) L 06/29/23 05:42 RDW 14.3 % (12.0-15.0) 06/29/23 05:42 Plt Count 202 10^3/uL (130-450) 06/29/23 05:42 MPV 10.5 fL (7.4-11.4) 06/29/23 05:42 Neut # (Auto) 5.6 10^3/uL (1.5-6.6) 06/29/23 05:42 Lymph # (Auto) 0.3 10^3/uL (1.5-3.5) L 06/29/23 05:42 Park # (Auto) 0.4 10^3/uL (0.0-1.0) 06/29/23 05:42 Eos # (Auto) 0.0 10^3/uL (0.0-0.7) 06/29/23 05:42 Baso # (Auto) 0.0 10^3/uL (0.0-0.1) 06/29/23 05:42 Absolute Nucleated RBC 0.00 x10^3/uL 06/29/23 05:42 Nucleated RBC % 0.0 /100WBC 06/29/23 05:42 Bld Gas Analysis Time 1903 06/26/23 17:50 Sample Site RIGHT RADIAL 06/26/23 17:50 ABG pH 7.42 (7.35-7.45) 06/26/23 17:50 ABG pCO2 38 mmHg (34-45) 06/26/23 17:50 ABG pO2 86 mmHg (80-100) 06/26/23 17:50 ABG HCO3 23.8 mmol/L (22.0-26.0) 06/26/23 17:50 ABG Total CO2 25.0 MMOL/L (21.0-29.0) 06/26/23 17:50 ABG O2 Saturation 96 % (94-98) 06/26/23 17:50 ABG Base Excess -0.4 mmol/L (-2.0-3.0) 06/26/23 17:50 Tarun Test POSITIVE 06/26/23 17:50 VBG pH 7.403 (7.31-7.41) 06/28/23 04:37 Ionized Calcium 1.11 mmol/L (1.15-1.33) L 06/28/23 04:37 O2 Liters/Min 30.00 LPM 06/26/23 17:50 FiO2 33.00 06/26/23 17:50 Sodium 137 mmol/L (135-145) 06/29/23 05:42 Potassium 5.2 mmol/L (3.5-4.5) H 06/29/23 05:42 Chloride 98 mmol/L (101-111) L 06/29/23 05:42 Carbon Dioxide 33 mmol/L (21-32) H 06/29/23 05:42 Anion Gap 6.0 (6-13) 06/29/23 05:42 BUN 73 mg/dL (6-20) H 06/29/23 05:42 Creatinine 2.4 mg/dL (0.6-1.3) H 06/29/23 05:42 Estimated GFR (MDRD) 28 (>89) L 06/29/23 05:42 Glucose 132 mg/dL (74-104) H 06/29/23 05:42 Calcium 9.2 mg/dL (8.5-10.3) 06/29/23 05:42 Phosphorus 4.8 mg/dL (2.5-5.0) 06/28/23 04:37 Magnesium 2.5 mg/dL (1.7-2.3) H 06/28/23 04:37 Total Bilirubin 0.5 mg/dL (0.2-1.0) 06/26/23 15:18 AST 27 IU/L (10-42) 06/26/23 15:18 ALT 48 IU/L (10-60) 06/26/23 15:18 Alkaline Phosphatase 71 IU/L (42-121) 06/26/23 15:18 Troponin I High Sens 51.8 ng/L (2.3-19.7) H* 06/26/23 18:16 Total Protein 6.9 g/dL (6.4-8.9) 06/26/23 15:18 Albumin 4.0 g/dL (3.2-5.5) 06/26/23 15:18 Globulin 2.9 g/dL (2.1-4.2) 06/26/23 15:18 Albumin/Globulin Ratio 1.4 (1.0-2.2) 06/26/23 15:18 Lipase 13 U/L (11-82) 06/26/23 15:18 TSH 1.09 uIU/mL (0.34-5.60) 06/27/23 04:13 Nasal Adenovirus (PCR) NOT DETECTED 06/26/23 15:08 Nasal B. parapertussis DNA (PCR) NOT DETECTED 06/26/23 15:08 Nasal Coronavir 229E PCR NOT DETECTED 06/26/23 15:08 Nasal Coronavir HKU1 PCR NOT DETECTED 06/26/23 15:08 Nasal Coronavir NL63 PCR NOT DETECTED 06/26/23 15:08 Nasal Coronavir OC43 PCR NOT DETECTED 06/26/23 15:08 Nasal Enterovir/Rhinovir PCR NOT DETECTED 06/26/23 15:08 Nasal Influenza B PCR NOT DETECTED 06/26/23 15:08 Nasal Influenza A PCR NOT DETECTED 06/26/23 15:08 Nasal Parainfluen 1 PCR NOT DETECTED 06/26/23 15:08 Nasal Parainfluen 2 PCR NOT DETECTED 06/26/23 15:08 Nasal Parainfluen 3 PCR NOT DETECTED 06/26/23 15:08 Nasal Parainfluen 4 PCR NOT DETECTED 06/26/23 15:08 Nasal RSV (PCR) NOT DETECTED 06/26/23 15:08 Nasal Screen MRSA (PCR) NEGATIVE (NEGATIVE) 06/26/23 17:30 Nasal B.pertussis DNA PCR NOT DETECTED 06/26/23 15:08 Nasal C.pneumoniae (PCR) NOT DETECTED 06/26/23 15:08 Cristofer Human Metapneumo PCR NOT DETECTED 06/26/23 15:08 Nasal M.pneumoniae (PCR) NOT DETECTED 06/26/23 15:08 Nasal SARS-CoV-2 (PCR) NOT DETECTED 06/26/23 15:08 - Procedures Procedures: Procedures COLONOSCOPY (01/21/14) DRAINAGE OF R PLEURAL CAV WITH DRAIN DEV, PERC APPROACH (11/06/15) REMOVAL OF DRAIN DEV FROM R PLEURAL CAV, SLEEPING BAG FILLER APPROACH (11/06/15) Sepsis Event Note (H) - Evaluation Current Stage of Sepsis: Ruled out Possible source of Sepsis: positive: Pulmonary - Sepsis Criteria Sepsis Criteria: Recorded Heart Rate greater than 90 bpm, Recorded Respiratory Rate greater than 20
--- NOTE | 2023-06-29 12:03 | PROVIDER PROGRESS NOTE ---
Assessment/Plan - Problem List (1) COPD with acute exacerbation Assessment/Plan: (1) COPD with acute exacerbation Assessment/Plan: --Successfully weaned from Optiflow to nasal cannula. -- Continue scheduled DuoNeb and Pulmicort. --Prednisone 40 mg daily for 5 days. (2) Pneumonia Assessment/Plan: --Continue IV azithromycin and ceftriaxone. -- Sputum culture positive for Enterobacter cloacae complex. Ceftriaxone will provide coverage for this organism. (3) Acute kidney injury superimposed on CKD Assessment/Plan: --Cr mildly elevated however renal function as remained stable. Will start him on normal saline to challenge. --Continue to monitor with daily BMP. - Current Meds Current Meds: Current Medications Generic Name Dose Route Start Last Admin Trade Name Freq PRN Reason Stop Dose Admin Acetaminophen 650 mg 06/26/23 16:32 06/29/23 06:21 Acetaminophen 325 Mg Tablet PO 650 mg Q4HR PRN Administration Pain 1 to 4, or Fever Al Hydroxide/Mg Hydroxide 30 ml 06/27/23 20:03 06/29/23 10:23 Mag Hydrox/Al Hydrox/Simeth 30 Ml Udc PO 30 ml Q8H PRN Administration Heartburn Albuterol/Ipratropium 3 ml 06/26/23 19:00 06/29/23 10:21 Ipratropium/Albuterol 3 Ml Neb INH 3 ml RTQID JOSIAH Administration Budesonide 0.5 mg 06/26/23 19:00 06/29/23 07:08 Budesonide 0.5 Mg/2 Ml Neb INH 0.5 mg RTBID JOSIAH Administration Citalopram Hydrobromide 10 mg 06/27/23 12:00 06/29/23 08:30 Citalopram 10 Mg Tablet PO 10 mg DAILY JOSIAH Administration Enoxaparin Sodium 40 mg 06/29/23 09:00 06/29/23 08:35 Enoxaparin 40 Mg/0.4 Ml Syringe SUBQ 40 mg DAILY JOSIAH Administration Gabapentin 100 mg 06/27/23 14:00 06/29/23 06:17 Gabapentin 100 Mg Capsule PO 100 mg TID JOSIAH Administration Guaifenesin 600 mg 06/26/23 21:00 06/29/23 08:30 Guaifenesin 600 Mg Tablet PO 600 mg BID JOSIAH Administration Ceftriaxone Sodium 2 gm/ 100 mls @ 200 mls/hr 06/28/23 09:00 06/29/23 09:40 Sodium Chloride IV Infused DAILY JOS[facility] Infusion Ibuprofen 400 mg 06/28/23 14:27 06/28/23 15:19 Ibuprofen 400 Mg Tablet PO 400 mg Q6HR PRN Administration Moderate Pain (Level 4-6) Lactobacillus Rhamnosus 1 cap 06/27/23 09:00 06/29/23 08:29 Lactobacillus Rhamnosus Gg Capsule PO 1 cap DAILY JOSIAH Administration Lidocaine 1 patch 06/28/23 09:00 06/28/23 09:41 Lidocaine Patch 5% TOP Not Given DAILY JOSIAH Lidocaine HCl 5 ml 06/27/23 20:03 06/27/23 20:36 Lidocaine Viscous 2% 15 Ml Oral Syringe MM 5 ml Q8H PRN Administration Heartburn Methylprednisolone Sodium Succinate 125 mg 06/26/23 22:00 06/29/23 06:18 Methylprednisolone Succinate 125 Mg/2 Ml Vial IVP 125 mg TID JOSIAH Administration Morphine Sulfate 1 mg 06/26/23 16:32 06/29/23 10:18 Morphine 2 Mg/Ml Carpuject IVP 1 mg Q2HR PRN Administration Dyspnea Multivitamins/Minerals 1 tab 06/29/23 08:00 06/29/23 08:29 Multivitamin W/Minerals Tablet PO 1 tab DAILYWM JOSIAH Administration Oxycodone HCl 5 mg 06/27/23 11:22 06/28/23 20:04 Oxycodone 5 Mg Tablet PO 5 mg Q6H PRN Administration PAIN Pantoprazole Sodium 40 mg 06/29/23 08:00 06/29/23 08:03 Pantoprazole 40 Mg Tablet PO 40 mg QDAC JOSIAH Administration Sodium Chloride 10 ml 06/26/23 17:00 06/29/23 10:22 Sodium Chloride Flush 0.9% 10 Ml Syringe IVP 10 ml 0100,0900,1700 JOSIAH Administration Sodium Chloride 10 ml 06/26/23 16:32 06/29/23 10:23 Sodium Chloride Flush 0.9% 10 Ml Syringe IVP 10 ml PRN PRN Administration NEEDED PER PROVIDER ORDERS Venlafaxine HCl 225 mg 06/28/23 09:00 06/29/23 08:26 Venlafaxine Er 75 Mg Capsule PO 225 mg DAILY JOSIAH Administration - Lab Result Fish Bone Diagrams: 06/29/23 05:42 06/29/23 05:42 - Additional Planning My Orders: My Active Orders 06/28/23 14:27 Ibuprofen [Motrin] 400 mg PO Q6HR PRN 06/29/23 08:00 Multivitamin W/Minerals [Theragran M] 1 tab PO DAILYWM Pantoprazole [Protonix] 40 mg PO QDAC 06/29/23 09:00 Enoxaparin [Lovenox] 40 mg SUBQ DAILY 06/30/23 Breakfast Soft Mechanical Diet [DIET] 06/30/23 05:00 BMP - BASIC METABOLIC PANEL [CHEM] DAILYLAB CBC [CBC - COMP BLD CT W/AUTO DIFF] [HEME] DAILYLAB 07/01/23 05:00 BMP - BASIC METABOLIC PANEL [CHEM] DAILYLAB CBC [CBC - COMP BLD CT W/AUTO DIFF] [HEME] DAILYLAB 07/02/23 05:00 BMP - BASIC METABOLIC PANEL [CHEM] DAILYLAB CBC [CBC - COMP BLD CT W/AUTO DIFF] [HEME] DAILYLAB 07/03/23 05:00 BMP - BASIC METABOLIC PANEL [CHEM] DAILYLAB 07/04/23 05:00 BMP - BASIC METABOLIC PANEL [CHEM] DAILYLAB Subjective - Subjective Patient Reports: Feeling Better, No Complaints, Cough Objective Vital Signs: Vital Signs - 24 hr 06/28/23 06/28/23 06/28/23 13:00 14:00 15:00 Temperature Heart Rate Heart Rate [ 103 H 109 H Monitoring electrodes] Respiratory 22 Rate Blood Pressure 119/100 H 120/94 H 113/83 H [Right Brachial artery] O2 Saturation 105 H 95 If not protocol 4 : Oxygen Flow, liters/minute 06/28/23 06/28/23 06/28/23 15:07 16:00 17:00 Temperature 36.6 C Heart Rate 107 H Heart Rate [ 107 H 108 H Monitoring electrodes] Respiratory 22 22 27 H Rate Blood Pressure 106/93 H 121/94 H [Right Brachial artery] O2 Saturation 98 96 If not protocol 4 4 : Oxygen Flow, liters/minute 06/28/23 06/28/23 06/28/23 18:00 18:16 20:00 Temperature 36.7 C Heart Rate 108 H Heart Rate [ 108 H 105 H Monitoring electrodes] Respiratory 22 21 13 Rate Blood Pressure 123/97 H 122/92 H [Right Brachial artery] O2 Saturation 97 96 If not protocol 4 6 4 : Oxygen Flow, liters/minute 06/28/23 06/28/23 06/28/23 21:00 22:00 23:00 Temperature Heart Rate Heart Rate [ 107 H 105 H 103 H Monitoring electrodes] Respiratory 22 21 19 Rate Blood Pressure 97/81 H 117/90 H [Right Brachial artery] O2 Saturation 96 97 98 If not protocol 4 4 4 : Oxygen Flow, liters/minute 06/29/23 06/29/23 06/29/23 00:00 01:00 02:00 Temperature 36.5 C Heart Rate Heart Rate [ 106 H 109 H 107 H Monitoring electrodes] Respiratory 28 H 33 H 21 Rate Blood Pressure 103/86 H 80/70 L 135/90 H [Right Brachial artery] O2 Saturation 97 96 96 If not protocol 4 4 4 : Oxygen Flow, liters/minute 06/29/23 06/29/23 06/29/23 03:00 04:00 05:00 Temperature 36.5 C Heart Rate Heart Rate [ 103 H 101 H 102 H Monitoring electrodes] Respiratory 20 23 26 H Rate Blood Pressure 124/82 H 128/95 H 124/91 H [Right Brachial artery] O2 Saturation 97 98 98 If not protocol 4 4 4 : Oxygen Flow, liters/minute 06/29/23 06/29/23 06/29/23 06:00 07:00 07:09 Temperature Heart Rate 104 H Heart Rate [ 102 H 103 H Monitoring electrodes] Respiratory 21 17 20 Rate Blood Pressure 118/93 H 126/82 H [Right Brachial artery] O2 Saturation 99 98 If not protocol 4 4 4 : Oxygen Flow, liters/minute 06/29/23 06/29/23 06/29/23 08:00 09:00 10:00 Temperature 36.3 C L Heart Rate Heart Rate [ 105 H 109 H 107 H Monitoring electrodes] Respiratory 22 18 17 Rate Blood Pressure 122/96 H 129/83 H 125/101 H [Right Brachial artery] O2 Saturation 95 98 96 If not protocol 4 4 4 : Oxygen Flow, liters/minute 06/29/23 06/29/23 10:28 11:00 Temperature Heart Rate 108 H Heart Rate [ 106 H Monitoring electrodes] Respiratory 21 16 Rate Blood Pressure 116/86 H [Right Brachial artery] O2 Saturation 93 If not protocol 30 30 : Oxygen Flow, liters/minute Oxygen O2 Source [facility] Oxygen Flow Rate 6 I&O (Last 24 Hrs): Intake and Output Totals x24h 11/07/23 11/08/23 11/09/23 23:59 23:59 23:59 Intake Total 2310 1950 1500 Output Total 800 1450 1000 Balance 1510 500 500 General: Alert, Oriented x3, Cooperative, No acute distress Neuro: Alert, CN 2-12 Grossly Intact, Oriented Times 3 Cardiovascular: Regular rate, Normal S1, Normal S2, No murmurs Respiratory: Chest non-tender, No respiratory distress, Breath sounds nml Abdomen: Normal bowel sounds, Soft, No tenderness, No hepatospenomegaly, No masses - Results Results: Laboratory Results WBC 6.3 x10^3/uL (4.8-10.8) 06/29/23 05:42 RBC 3.34 10^6/uL (4.70-6.10) L 06/29/23 05:42 Hgb 9.6 g/dL (14.0-18.0) L 06/29/23 05:42 Hct 31.0 % (42.0-52.0) L 06/29/23 05:42 MCV 92.8 fL (80.0-94.0) 06/29/23 05:42 MCH 28.7 pg (27.0-31.0) 06/29/23 05:42 MCHC 31.0 g/dL (32.0-36.0) L 06/29/23 05:42 RDW 14.3 % (12.0-15.0) 06/29/23 05:42 Plt Count 202 10^3/uL (130-450) 06/29/23 05:42 MPV 10.5 fL (7.4-11.4) 06/29/23 05:42 Neut # (Auto) 5.6 10^3/uL (1.5-6.6) 06/29/23 05:42 Lymph # (Auto) 0.3 10^3/uL (1.5-3.5) L 06/29/23 05:42 [place] # (Auto) 0.4 10^3/uL (0.0-1.0) 06/29/23 05:42 Eos # (Auto) 0.0 10^3/uL (0.0-0.7) 06/29/23 05:42 Baso # (Auto) 0.0 10^3/uL (0.0-0.1) 06/29/23 05:42 Absolute Nucleated RBC 0.00 x10^3/uL 06/29/23 05:42 Nucleated RBC % 0.0 /100WBC 06/29/23 05:42 Bld Gas Analysis Time 1903 06/26/23 17:50 Sample Site RIGHT RADIAL 06/26/23 17:50 ABG pH 7.42 (7.35-7.45) 06/26/23 17:50 ABG pCO2 38 mmHg (34-45) 06/26/23 17:50 ABG pO2 86 mmHg (80-100) 06/26/23 17:50 ABG HCO3 23.8 mmol/L (22.0-26.0) 06/26/23 17:50 ABG Total CO2 25.0 MMOL/L (21.0-29.0) 06/26/23 17:50 ABG O2 Saturation 96 % (94-98) 06/26/23 17:50 ABG Base Excess -0.4 mmol/L (-2.0-3.0) 06/26/23 17:50 Tarun Test POSITIVE 06/26/23 17:50 VBG pH 7.403 (7.31-7.41) 06/28/23 04:37 Ionized Calcium 1.11 mmol/L (1.15-1.33) L 06/28/23 04:37 O2 Liters/Min 30.00 LPM 06/26/23 17:50 FiO2 33.00 06/26/23 17:50 Sodium 137 mmol/L (135-145) 06/29/23 05:42 Potassium 5.2 mmol/L (3.5-4.5) H 06/29/23 05:42 Chloride 98 mmol/L (101-111) L 06/29/23 05:42 Carbon Dioxide 33 mmol/L (21-32) H 06/29/23 05:42 Anion Gap 6.0 (6-13) 06/29/23 05:42 BUN 73 mg/dL (6-20) H 06/29/23 05:42 Creatinine 2.4 mg/dL (0.6-1.3) H 06/29/23 05:42 Estimated GFR (MDRD) 28 (>89) L 06/29/23 05:42 Glucose 132 mg/dL (74-104) H 06/29/23 05:42 Calcium 9.2 mg/dL (8.5-10.3) 06/29/23 05:42 Phosphorus 4.8 mg/dL (2.5-5.0) 06/28/23 04:37 Magnesium 2.5 mg/dL (1.7-2.3) H 06/28/23 04:37 Total Bilirubin 0.5 mg/dL (0.2-1.0) 06/26/23 15:18 AST 27 IU/L (10-42) 06/26/23 15:18 ALT 48 IU/L (10-60) 06/26/23 15:18 Alkaline Phosphatase 71 IU/L (42-121) 06/26/23 15:18 Troponin I High Sens 51.8 ng/L (2.3-19.7) H* 06/26/23 18:16 Total Protein 6.9 g/dL (6.4-8.9) 06/26/23 15:18 Albumin 4.0 g/dL (3.2-5.5) 06/26/23 15:18 Globulin 2.9 g/dL (2.1-4.2) 06/26/23 15:18 Albumin/Globulin Ratio 1.4 (1.0-2.2) 06/26/23 15:18 Lipase 13 U/L (11-82) 06/26/23 15:18 TSH 1.09 uIU/mL (0.34-5.60) 06/27/23 04:13 Nasal Adenovirus (PCR) NOT DETECTED 06/26/23 15:08 Nasal B. parapertussis DNA (PCR) NOT DETECTED 06/26/23 15:08 Nasal Coronavir 229E PCR NOT DETECTED 06/26/23 15:08 Nasal Coronavir HKU1 PCR NOT DETECTED 06/26/23 15:08 Nasal Coronavir NL63 PCR NOT DETECTED 06/26/23 15:08 Nasal Coronavir OC43 PCR NOT DETECTED 06/26/23 15:08 Nasal Enterovir/Rhinovir PCR NOT DETECTED 06/26/23 15:08 Nasal Influenza B PCR NOT DETECTED 06/26/23 15:08 Nasal Influenza A PCR NOT DETECTED 06/26/23 15:08 Nasal Parainfluen 1 PCR NOT DETECTED 06/26/23 15:08 Nasal Parainfluen 2 PCR NOT DETECTED 06/26/23 15:08 Nasal Parainfluen 3 PCR NOT DETECTED 06/26/23 15:08 Nasal Parainfluen 4 PCR NOT DETECTED 06/26/23 15:08 Nasal RSV (PCR) NOT DETECTED 06/26/23 15:08 Nasal Screen MRSA (PCR) NEGATIVE (NEGATIVE) 06/26/23 17:30 Nasal B.pertussis DNA PCR NOT DETECTED 06/26/23 15:08 Nasal C.pneumoniae (PCR) NOT DETECTED 06/26/23 15:08 Cristofer Human Metapneumo PCR NOT DETECTED 06/26/23 15:08 Nasal M.pneumoniae (PCR) NOT DETECTED 06/26/23 15:08 Nasal SARS-CoV-2 (PCR) NOT DETECTED 06/26/23 15:08 - Procedures Procedures: Procedures COLONOSCOPY (01/21/14) DRAINAGE OF R PLEURAL CAV WITH DRAIN DEV, PERC APPROACH (11/06/15) REMOVAL OF DRAIN DEV FROM R PLEURAL CAV, TEACHER ADVISOR APPROACH (11/06/15) Sepsis Event Note (H) - Evaluation Current Stage of Sepsis: Ruled out Possible source of Sepsis: positive: Pulmonary - Sepsis Criteria Sepsis Criteria: Recorded Heart Rate greater than 90 bpm, Recorded Respiratory Rate greater than 20 Current Medications - Current Medications Current Medications: Active Medications Generic Name Dose Route Start Last Admin Trade Name Freq PRN Reason Stop Dose Admin Acetaminophen 650 mg 06/26/23 16:32 06/29/23 06:21 Acetaminophen 325 Mg Tablet PO 650 mg Q4HR PRN Administration Pain 1 to 4, or Fever Al Hydroxide/Mg Hydroxide 30 ml 06/27/23 20:03 06/29/23 10:23 Mag Hydrox/Al Hydrox/Simeth 30 Ml Udc PO 30 ml Q8H PRN Administration Heartburn Albuterol/Ipratropium 3 ml 06/26/23 16:44 Ipratropium/Albuterol 3 Ml Neb INH Q4HR PRN Wheezing Albuterol/Ipratropium 3 ml 06/26/23 19:00 06/29/23 10:21 Ipratropium/Albuterol 3 Ml Neb INH 3 ml RTQID JOSIAH Administration Budesonide 0.5 mg 06/26/23 19:00 06/29/23 07:08 Budesonide 0.5 Mg/2 Ml Neb INH 0.5 mg RTBID JOSIAH Administration Citalopram Hydrobromide 10 mg 06/27/23 12:00 06/29/23 08:30 Citalopram 10 Mg Tablet PO 10 mg DAILY JOSIAH Administration Enoxaparin Sodium 40 mg 06/29/23 09:00 06/29/23 08:35 Enoxaparin 40 Mg/0.4 Ml Syringe SUBQ 40 mg DAILY JOSIAH Administration Gabapentin 100 mg 06/27/23 14:00 06/29/23 06:17 Gabapentin 100 Mg Capsule PO 100 mg TID [facility] Administration Guaifenesin 600 mg 06/26/23 21:00 06/29/23 08:30 Guaifenesin 600 Mg Tablet PO 600 mg BID [facility] Administration Ceftriaxone Sodium 2 gm/ 100 mls @ 200 mls/hr 06/28/23 09:00 06/29/23 09:40 Sodium Chloride IV Infused DAILY [facility] Infusion Sodium Chloride 1,000 mls @ 83.333 mls/hr 06/29/23 13:00 Normal Saline 0.9% IV .Q12H [facility] Ibuprofen 400 mg 06/28/23 14:27 06/28/23 15:19 Ibuprofen 400 Mg Tablet PO 400 mg Q6HR PRN Administration Moderate Pain (Level 4-6) Lactobacillus Rhamnosus 1 cap 06/27/23 09:00 06/29/23 08:29 Lactobacillus Rhamnosus Gg Capsule PO 1 cap DAILY [facility] Administration Lidocaine 1 patch 06/28/23 09:00 06/28/23 09:41 Lidocaine Patch 5% TOP Not Given DAILY [facility] Lidocaine HCl 5 ml 06/27/23 20:03 06/27/23 20:36 Lidocaine Viscous 2% 15 Ml Oral Syringe MM 5 ml Q8H PRN Administration Heartburn Morphine Sulfate 1 mg 06/26/23 16:32 06/29/23 10:18 Morphine 2 Mg/Ml Carpuject IVP 1 mg Q2HR PRN Administration Dyspnea Multi-Ingredient Mouthwash/Gargle 30 ml 06/27/23 19:50 Gi Cocktail 120 Ml Bottle PO Q8H PRN Heartburn Multivitamins/Minerals 1 tab 06/29/23 08:00 06/29/23 08:29 Multivitamin W/Minerals Tablet PO 1 tab DAILYWM [facility] Administration Ondansetron HCl 4 mg 06/26/23 16:32 Ondansetron 4 Mg/2 Ml Vial IVP Q6HR PRN Nausea / Vomiting Oxycodone HCl 5 mg 06/27/23 11:22 06/28/23 20:04 Oxycodone 5 Mg Tablet PO 5 mg Q6H PRN Administration PAIN Pantoprazole Sodium 40 mg 06/29/23 08:00 06/29/23 08:03 Pantoprazole 40 Mg Tablet PO 40 mg QDAC JOSIAH Administration Prednisone 40 mg 06/30/23 08:00 Prednisone 20 Mg Tablet PO 07/05/23 07:59 DAILYWM JOSIAH Sodium Chloride 10 ml 06/26/23 17:00 06/29/23 10:22 Sodium Chloride Flush 0.9% 10 Ml Syringe IVP 10 ml 0100,0900,1700 JOSIAH Administration Sodium Chloride 10 ml 06/26/23 16:32 06/29/23 10:23 Sodium Chloride Flush 0.9% 10 Ml Syringe IVP 10 ml PRN PRN Administration NEEDED PER PROVIDER ORDERS Venlafaxine HCl 225 mg 06/28/23 09:00 06/29/23 08:26 Venlafaxine Er 75 Mg Capsule PO 225 mg DAILY JOSIAH Administration Albuterol 2.5 mg INH Q4H PRN 04/24/22 Citalopram [CeleXA] 10 mg PO DAILY 04/24/22 Fluticasone/Salmeterol [Advair Hfa 115-21 Mcg Inhaler] 2 puffs PO BID 06/27/23 Ipratropium [Atrovent] 2 puffs PO BID 06/27/23 Ipratropium/Albuterol [Duoneb] 3 ml INH Q4H PRN 06/27/23 Venlafaxine ER [Effexor ER] 225 mg PO DAILY 06/27/23
[2023-06-29] MEDS: SODIUM CHLORIDE 0.9% 1,000 ML IV SCH (13:06)
[2023-06-29] MEDS: GI COCKTAIL 120 ML BOTTLE PO PRN (14:18)
[2023-06-29] MEDS: LIDOCAINE PATCH 5% TOP SCH (19:53)
[2023-06-30] MEDS: oxyCODONE 5 MG TABLET PO PRN (00:17)
[2023-06-30] MEDS: SODIUM CHLORIDE FLUSH 0.9% 10 ML SYRINGE IVP SCH ×3 (00:18→16:28)
[2023-06-30] MEDS: ACETAMINOPHEN 325 MG TABLET PO PRN ×2 (00:18→16:27)
[2023-06-30] MEDS: SODIUM CHLORIDE 0.9% 1,000 ML IV SCH ×2 (00:22→16:27)
[2023-06-30 06:00] LABS: BASOPHILS % (AUTO) 0.1 %; HCT - HEMATOCRIT 32.7 % (42.0-52.0); HGB - HEMOGLOBIN 9.8 g/dL (14.0-18.0); LYMPHOCYTES # (AUTO) 0.8 10^3/uL (1.5-3.5); LYMPHOCYTES % (AUTO) 10.4 %; MEAN CORPUSCULAR HEMOGLOBIN 28.3 pg (27.0-31.0); MEAN CORPUSCULAR VOLUME 94.5 fL (80.0-94.0); MEAN PLATELET VOLUME 10.1 fL (7.4-11.4); MONOCYTES # (AUTO) 0.9 10^3/uL (0.0-1.0); NEUTROPHILS # (AUTO) 5.5 10^3/uL (1.5-6.6); NEUTROPHILS % (AUTO) 76.5 %; NRBC ABSOLUTE COUNT (AUTO) 0.03 x10^3/uL; NUCLEATED RED BLOOD CELLS AUTO 0.4 /100WBC; PLT - PLATELET COUNT 183 10^3/uL (130-450); RED BLOOD COUNT 3.46 10^6/uL (4.70-6.10); RED CELL DISTRIBUTION WIDTH 14.6 % (12.0-15.0); WHITE BLOOD COUNT 7.2 x10^3/uL (4.8-10.8)
[2023-06-30] MEDS: PANTOPRAZOLE 40 MG TABLET PO SCH (06:13)
[2023-06-30] MEDS: GABAPENTIN 100 MG CAPSULE PO SCH ×3 (06:13→21:28)
[2023-06-30 06:22] LABS: CALCIUM 8.7 mg/dL (8.5-10.3); CREATININE 2.1 mg/dL (0.6-1.3); POTASSIUM 5.3 mmol/L (3.5-4.5)
[2023-06-30] MEDS: guaiFENesin 600 MG TABLET PO SCH ×2 (08:23→21:28)
[2023-06-30] MEDS: VENLAFAXINE ER 75 MG CAPSULE PO SCH (08:23)
[2023-06-30] MEDS: cefTRIAXone 2 GM in SODIUM CHLORIDE 0.9% MINIBAG 100 ML IV SCH (08:23)
[2023-06-30] MEDS: CITALOPRAM 10 MG TABLET PO SCH (08:23)
[2023-06-30] MEDS: LACTOBACILLUS RHAMNOSUS GG CAPSULE PO SCH (08:23)
[2023-06-30] MEDS: ENOXAPARIN 40 MG/0.4 ML SYRINGE SUBQ SCH (08:23)
[2023-06-30] MEDS: predniSONE 20 MG TABLET PO SCH (08:23)
[2023-06-30] MEDS: MULTIVITAMIN W/MINERALS TABLET PO SCH (08:23)
[2023-06-30] MEDS: LIDOCAINE PATCH 5% TOP SCH (08:28)
[2023-06-30] MEDS: BUDESONIDE 0.5 MG/2 ML NEB INH SCH (08:40)
[2023-06-30] MEDS: IPRATROPIUM/ALBUTEROL 3 ML NEB INH SCH ×3 (08:41→20:54)
[2023-06-30] MEDS: GI COCKTAIL 120 ML BOTTLE PO PRN (12:05)
--- NOTE | 2023-06-30 13:05 | PROVIDER PROGRESS NOTE ---
Assessment/Plan - Problem List (1) COPD with acute exacerbation Assessment/Plan: (1) COPD with acute exacerbation Assessment/Plan: --Successfully weaned from Optiflow to nasal cannula. -- Continue scheduled DuoNeb and Pulmicort. --Prednisone 40 mg daily for 5 days. (2) Pneumonia Assessment/Plan: --Completed 5 days of antibiotics. -- Sputum culture positive for Enterobacter cloacae complex. Ceftriaxone will provide coverage for this organism. (3) Acute kidney injury superimposed on CKD Assessment/Plan: --Creatinine improved with IV fluids overnight. Renal function is stable. --Continue to monitor with daily BMP. (4) Weakness Assessment/Plan: --PT/OT recommending SNF. - Current Meds Current Meds: Current Medications Generic Name Dose Route Start Last Admin Trade Name Freq PRN Reason Stop Dose Admin Acetaminophen 650 mg 06/26/23 16:32 06/30/23 00:18 Acetaminophen 325 Mg Tablet PO 650 mg Q4HR PRN Administration Pain 1 to 4, or Fever Al Hydroxide/Mg Hydroxide 30 ml 06/27/23 20:03 06/29/23 18:20 Mag Hydrox/Al Hydrox/Simeth 30 Ml Udc PO 30 ml Q8H PRN Administration Heartburn Albuterol/Ipratropium 3 ml 06/26/23 19:00 06/30/23 08:41 Ipratropium/Albuterol 3 Ml Neb INH 3 ml RTQID JOSIAH Administration Budesonide 0.5 mg 06/26/23 19:00 06/30/23 08:40 Budesonide 0.5 Mg/2 Ml Neb INH 0.5 mg RTBID JOSIAH Administration Citalopram Hydrobromide 10 mg 06/27/23 12:00 06/30/23 08:23 Citalopram 10 Mg Tablet PO 10 mg DAILY JOSIAH Administration Enoxaparin Sodium 40 mg 06/29/23 09:00 06/30/23 08:23 Enoxaparin 40 Mg/0.4 Ml Syringe SUBQ 40 mg DAILY JOSIAH Administration Gabapentin 100 mg 06/27/23 14:00 06/30/23 06:13 Gabapentin 100 Mg Capsule PO 100 mg TID JOSIAH Administration Guaifenesin 600 mg 06/26/23 21:00 06/30/23 08:23 Guaifenesin 600 Mg Tablet PO 600 mg BID JOSIAH Administration Sodium Chloride 1,000 mls @ 83.333 mls/hr 06/29/23 13:00 06/30/23 00:22 Normal Saline 0.9% IV 83.333 mls/hr .Q12H JOSIAH Administration Ibuprofen 400 mg 06/28/23 14:27 06/28/23 15:19 Ibuprofen 400 Mg Tablet PO 400 mg Q6HR PRN Administration Moderate Pain (Level 4-6) Lactobacillus Rhamnosus 1 cap 06/27/23 09:00 06/30/23 08:23 Lactobacillus Rhamnosus Gg Capsule PO 1 cap DAILY JOSIAH Administration Lidocaine 1 patch 06/28/23 09:00 06/30/23 08:28 Lidocaine Patch 5% TOP Not Given DAILY JOSIAH Lidocaine HCl 5 ml 06/27/23 20:03 06/27/23 20:36 Lidocaine Viscous 2% 15 Ml Oral Syringe MM 5 ml Q8H PRN Administration Heartburn Morphine Sulfate 1 mg 06/26/23 16:32 06/29/23 10:18 Morphine 2 Mg/Ml Carpuject IVP 1 mg Q2HR PRN Administration Dyspnea Multi-Ingredient Mouthwash/Gargle 30 ml 06/27/23 19:50 06/30/23 12:05 Gi Cocktail 120 Ml Bottle PO 30 ml Q8H PRN Administration Heartburn Multivitamins/Minerals 1 tab 06/29/23 08:00 06/30/23 08:23 Multivitamin W/Minerals Tablet PO 1 tab DAILYWM JOSIAH Administration Ondansetron HCl 4 mg 06/26/23 16:32 06/29/23 15:01 Ondansetron 4 Mg/2 Ml Vial IVP 4 mg Q6HR PRN Administration Nausea / Vomiting Oxycodone HCl 5 mg 06/27/23 11:22 06/30/23 00:17 Oxycodone 5 Mg Tablet PO 5 mg Q6H PRN Administration PAIN Pantoprazole Sodium 40 mg 06/29/23 08:00 06/30/23 06:13 Pantoprazole 40 Mg Tablet PO 40 mg QDAC JOSIAH Administration Prednisone 40 mg 06/30/23 08:00 06/30/23 08:23 Prednisone 20 Mg Tablet PO 07/05/23 07:59 40 mg DAILYWM JOSIAH Administration Sodium Chloride 10 ml 06/26/23 17:00 06/30/23 08:24 Sodium Chloride Flush 0.9% 10 Ml Syringe IVP Not Given 0100,0900,1700 JOSIAH Sodium Chloride 10 ml 06/26/23 16:32 06/29/23 10:23 Sodium Chloride Flush 0.9% 10 Ml Syringe IVP 10 ml PRN PRN Administration NEEDED PER PROVIDER ORDERS Venlafaxine HCl 225 mg 06/28/23 09:00 06/30/23 08:23 Venlafaxine Er 75 Mg Capsule PO 225 mg DAILY JOSIAH Administration - Lab Result Fish Bone Diagrams: 06/30/23 05:30 06/30/23 05:30 - Additional Planning My Orders: My Active Orders 06/29/23 13:00 Sodium Chloride 0.9% [Normal Saline 0.9%] 1,000 ml IV 83.333 mls/hr 06/30/23 Breakfast Soft Mechanical Diet [DIET] 06/30/23 08:00 predniSONE [Deltasone] 40 mg PO DAILYWM 07/01/23 05:00 BMP - BASIC METABOLIC PANEL [CHEM] DAILYLAB CBC [CBC - COMP BLD CT W/AUTO DIFF] [HEME] DAILYLAB 07/02/23 05:00 BMP - BASIC METABOLIC PANEL [CHEM] DAILYLAB CBC [CBC - COMP BLD CT W/AUTO DIFF] [HEME] DAILYLAB 07/03/23 05:00 BMP - BASIC METABOLIC PANEL [CHEM] DAILYLAB 07/04/23 05:00 BMP - BASIC METABOLIC PANEL [CHEM] DAILYLAB Subjective - Subjective Patient Reports: Other (Patient had several complaints this morning. He is upset he was moved from the ICU to the floor. He states he does not like change . His respiratory status is good. I checked his spO2 this morning and he was saturating at 100%.) Objective Vital Signs: Vital Signs - 24 hr 06/29/23 06/29/23 06/29/23 13:15 14:00 15:00 Temperature Heart Rate Heart Rate [ Brachial] Heart Rate [ 107 H 105 H Monitoring electrodes] Respiratory 21 19 Rate Blood Pressure 131/81 H 125/85 H [Right Brachial artery] O2 Saturation 91 L 98 If not protocol 4 4 4 : Oxygen Flow, liters/minute 06/29/23 06/29/23 06/29/23 16:00 16:03 17:00 Temperature 37 C Heart Rate 110 H Heart Rate [ Brachial] Heart Rate [ 113 H 111 H Monitoring electrodes] Respiratory 24 23 18 Rate Blood Pressure 114/91 H 134/93 H [Right Brachial artery] O2 Saturation 92 93 If not protocol 4 4 4 : Oxygen Flow, liters/minute 06/29/23 06/29/23 06/29/23 18:00 19:00 19:47 Temperature 36.8 C Heart Rate 111 H Heart Rate [ Brachial] Heart Rate [ 113 H 98 Monitoring electrodes] Respiratory 23 20 20 Rate Blood Pressure 119/90 H 110/83 H [Right Brachial artery] O2 Saturation 93 94 If not protocol 4 4 4 : Oxygen Flow, liters/minute 06/30/23 06/30/23 06/30/23 00:10 07:46 08:43 Temperature 36.4 C L 36.4 C L Heart Rate 78 Heart Rate [ 110 H 99 Brachial] Heart Rate [ Monitoring electrodes] Respiratory 22 20 17 Rate Blood Pressure 130/93 H 112/72 [Right Brachial artery] O2 Saturation 95 99 If not protocol 4 4 4 : Oxygen Flow, liters/minute Oxygen O2 Source Nasal cannula Oxygen Flow Rate 6 I&O (Last 24 Hrs): Intake and Output Totals x24h 06/28/23 06/29/23 06/30/23 23:59 23:59 23:59 Intake Total 1950 2200 2138.885 Output Total 1450 2280 1450 Balance 500 -80 688.885 General: Alert, Oriented x3, Cooperative, No acute distress Neuro: Alert, CN 2-12 Grossly Intact, Oriented Times 3 Cardiovascular: Regular rate, Normal S1, Normal S2, No murmurs Respiratory: Chest non-tender, No respiratory distress, Breath sounds nml Abdomen: Normal bowel sounds, Soft, No tenderness, No hepatospenomegaly, No masses Extremities: No clubbing, No cyanosis, No edema, Normal pulses, No tenderness/swelling - Results Results: Laboratory Results WBC 7.2 x10^3/uL (4.8-10.8) 06/30/23 05:30 RBC 3.46 10^6/uL (4.70-6.10) L 06/30/23 05:30 Hgb 9.8 g/dL (14.0-18.0) L 06/30/23 05:30 Hct 32.7 % (42.0-52.0) L 06/30/23 05:30 MCV 94.5 fL (80.0-94.0) H 06/30/23 05:30 MCH 28.3 pg (27.0-31.0) 06/30/23 05:30 MCHC 30.0 g/dL (32.0-36.0) L 06/30/23 05:30 RDW 14.6 % (12.0-15.0) 06/30/23 05:30 Plt Count 183 10^3/uL (130-450) 06/30/23 05:30 MPV 10.1 fL (7.4-11.4) 06/30/23 05:30 Neut # (Auto) 5.5 10^3/uL (1.5-6.6) 06/30/23 05:30 Lymph # (Auto) 0.8 10^3/uL (1.5-3.5) L 06/30/23 05:30 [place] # (Auto) 0.9 10^3/uL (0.0-1.0) 06/30/23 05:30 Eos # (Auto) 0.0 10^3/uL (0.0-0.7) 06/30/23 05:30 Baso # (Auto) 0.0 10^3/uL (0.0-0.1) 06/30/23 05:30 Absolute Nucleated RBC 0.03 x10^3/uL 06/30/23 05:30 Nucleated RBC % 0.4 /100WBC 06/30/23 05:30 Bld Gas Analysis Time 1903 06/26/23 17:50 Sample Site RIGHT RADIAL 06/26/23 17:50 ABG pH 7.42 (7.35-7.45) 06/26/23 17:50 ABG pCO2 38 mmHg (34-45) 06/26/23 17:50 ABG pO2 86 mmHg (80-100) 06/26/23 17:50 ABG HCO3 23.8 mmol/L (22.0-26.0) 06/26/23 17:50 ABG Total CO2 25.0 MMOL/L (21.0-29.0) 06/26/23 17:50 ABG O2 Saturation 96 % (94-98) 06/26/23 17:50 ABG Base Excess -0.4 mmol/L (-2.0-3.0) 06/26/23 17:50 Tarun Test POSITIVE 06/26/23 17:50 VBG pH 7.403 (7.31-7.41) 06/28/23 04:37 Ionized Calcium 1.11 mmol/L (1.15-1.33) L 06/28/23 04:37 O2 Liters/Min 30.00 LPM 06/26/23 17:50 FiO2 33.00 06/26/23 17:50 Sodium 138 mmol/L (135-145) 06/30/23 05:30 Potassium 5.3 mmol/L (3.5-4.5) H 06/30/23 05:30 Chloride 104 mmol/L (101-111) 06/30/23 05:30 Carbon Dioxide 27 mmol/L (21-32) 06/30/23 05:30 Anion Gap 7.0 (6-13) 06/30/23 05:30 BUN 72 mg/dL (6-20) H 06/30/23 05:30 Creatinine 2.1 mg/dL (0.6-1.3) H 06/30/23 05:30 Estimated GFR (MDRD) 32 (>89) L 06/30/23 05:30 Glucose 120 mg/dL (74-104) H 06/30/23 05:30 POC Whole Bld Glucose 126 mg/dL (70 - 100) H 06/29/23 21:19 Calcium 8.7 mg/dL (8.5-10.3) 06/30/23 05:30 Phosphorus 4.8 mg/dL (2.5-5.0) 06/28/23 04:37 Magnesium 2.5 mg/dL (1.7-2.3) H 06/28/23 04:37 Total Bilirubin 0.5 mg/dL (0.2-1.0) 06/26/23 15:18 AST 27 IU/L (10-42) 06/26/23 15:18 ALT 48 IU/L (10-60) 06/26/23 15:18 Alkaline Phosphatase 71 IU/L (42-121) 06/26/23 15:18 Troponin I High Sens 51.8 ng/L (2.3-19.7) H* 06/26/23 18:16 Total Protein 6.9 g/dL (6.4-8.9) 06/26/23 15:18 Albumin 4.0 g/dL (3.2-5.5) 06/26/23 15:18 Globulin 2.9 g/dL (2.1-4.2) 06/26/23 15:18 Albumin/Globulin Ratio 1.4 (1.0-2.2) 06/26/23 15:18 Lipase 13 U/L (11-82) 06/26/23 15:18 TSH 1.09 uIU/mL (0.34-5.60) 06/27/23 04:13 Nasal Adenovirus (PCR) NOT DETECTED 06/26/23 15:08 Nasal B. parapertussis DNA (PCR) NOT DETECTED 06/26/23 15:08 Nasal Coronavir 229E PCR NOT DETECTED 06/26/23 15:08 Nasal Coronavir HKU1 PCR NOT DETECTED 06/26/23 15:08 Nasal Coronavir NL63 PCR NOT DETECTED 06/26/23 15:08 Nasal Coronavir OC43 PCR NOT DETECTED 06/26/23 15:08 Nasal Enterovir/Rhinovir PCR NOT DETECTED 06/26/23 15:08 Nasal Influenza B PCR NOT DETECTED 06/26/23 15:08 Nasal Influenza A PCR NOT DETECTED 06/26/23 15:08 Nasal Parainfluen 1 PCR NOT DETECTED 06/26/23 15:08 Nasal Parainfluen 2 PCR NOT DETECTED 06/26/23 15:08 Nasal Parainfluen 3 PCR NOT DETECTED 06/26/23 15:08 Nasal Parainfluen 4 PCR NOT DETECTED 06/26/23 15:08 Nasal RSV (PCR) NOT DETECTED 06/26/23 15:08 Nasal Screen MRSA (PCR) NEGATIVE (NEGATIVE) 06/26/23 17:30 Nasal B.pertussis DNA PCR NOT DETECTED 06/26/23 15:08 Nasal C.pneumoniae (PCR) NOT DETECTED 06/26/23 15:08 Cristofer Human Metapneumo PCR NOT DETECTED 06/26/23 15:08 Nasal M.pneumoniae (PCR) NOT DETECTED 06/26/23 15:08 Nasal SARS-CoV-2 (PCR) NOT DETECTED 06/26/23 15:08 - Procedures Procedures: Procedures COLONOSCOPY (01/21/14) DRAINAGE OF R PLEURAL CAV WITH DRAIN DEV, PERC APPROACH (11/06/15) REMOVAL OF DRAIN DEV FROM R PLEURAL CAV, CONSERVATION OF RESOURCES COMMISSIONER APPROACH (11/06/15) Sepsis Event Note (H) - Evaluation Current Stage of Sepsis: Ruled out Possible source of Sepsis: positive: Pulmonary - Sepsis Criteria Sepsis Criteria: Recorded Heart Rate greater than 90 bpm, Recorded Respiratory Rate greater than 20 Current Medications - Current Medications Current Medications: Active Medications Generic Name Dose Route Start Last Admin Trade Name Freq PRN Reason Stop Dose Admin Acetaminophen 650 mg 06/26/23 16:32 06/30/23 00:18 Acetaminophen 325 Mg Tablet PO 650 mg Q4HR PRN Administration Pain 1 to 4, or Fever Al Hydroxide/Mg Hydroxide 30 ml 06/27/23 20:03 06/29/23 18:20 Mag Hydrox/Al Hydrox/Simeth 30 Ml Udc PO 30 ml Q8H PRN Administration Heartburn Albuterol/Ipratropium 3 ml 06/26/23 16:44 Ipratropium/Albuterol 3 Ml Neb INH Q4HR PRN Wheezing Albuterol/Ipratropium 3 ml 06/26/23 19:00 06/30/23 08:41 Ipratropium/Albuterol 3 Ml Neb INH 3 ml RTQID JOSIAH Administration Budesonide 0.5 mg 06/26/23 19:00 06/30/23 08:40 Budesonide 0.5 Mg/2 Ml Neb INH 0.5 mg RTBID JOSIAH Administration Citalopram Hydrobromide 10 mg 06/27/23 12:00 06/30/23 08:23 Citalopram 10 Mg Tablet PO 10 mg DAILY JOSIAH Administration Enoxaparin Sodium 40 mg 06/29/23 09:00 06/30/23 08:23 Enoxaparin 40 Mg/0.4 Ml Syringe SUBQ 40 mg DAILY JOSIAH Administration Gabapentin 100 mg 06/27/23 14:00 06/30/23 06:13 Gabapentin 100 Mg Capsule PO 100 mg TID JOSIAH Administration Guaifenesin 600 mg 06/26/23 21:00 06/30/23 08:23 Guaifenesin 600 Mg Tablet PO 600 mg BID JOSIAH Administration Sodium Chloride 1,000 mls @ 83.333 mls/hr 06/29/23 13:00 06/30/23 00:22 Normal Saline 0.9% IV 83.333 mls/hr .Q12H JOSIAH Administration Ibuprofen 400 mg 06/28/23 14:27 06/28/23 15:19 Ibuprofen 400 Mg Tablet PO 400 mg Q6HR PRN Administration Moderate Pain (Level 4-6) Lactobacillus Rhamnosus 1 cap 06/27/23 09:00 06/30/23 08:23 Lactobacillus Rhamnosus Gg Capsule PO 1 cap DAILY JOSIAH Administration Lidocaine 1 patch 06/28/23 09:00 06/30/23 08:28 Lidocaine Patch 5% TOP Not Given DAILY JOSIAH Lidocaine HCl 5 ml 06/27/23 20:03 06/27/23 20:36 Lidocaine Viscous 2% 15 Ml Oral Syringe MM 5 ml Q8H PRN Administration Heartburn Morphine Sulfate 1 mg 06/26/23 16:32 06/29/23 10:18 Morphine 2 Mg/Ml Carpuject IVP 1 mg Q2HR PRN Administration Dyspnea Multi-Ingredient Mouthwash/Gargle 30 ml 06/27/23 19:50 06/30/23 12:05 Gi Cocktail 120 Ml Bottle PO 30 ml Q8H PRN Administration Heartburn Multivitamins/Minerals 1 tab 06/29/23 08:00 06/30/23 08:23 Multivitamin W/Minerals Tablet PO 1 tab DAILYWM JOSIAH Administration Ondansetron HCl 4 mg 06/26/23 16:32 06/29/23 15:01 Ondansetron 4 Mg/2 Ml Vial IVP 4 mg Q6HR PRN Administration Nausea / Vomiting Oxycodone HCl 5 mg 06/27/23 11:22 06/30/23 00:17 Oxycodone 5 Mg Tablet PO 5 mg Q6H PRN Administration PAIN Pantoprazole Sodium 40 mg 06/29/23 08:00 06/30/23 06:13 Pantoprazole 40 Mg Tablet PO 40 mg QDAC JOSIAH Administration Prednisone 40 mg 06/30/23 08:00 06/30/23 08:23 Prednisone 20 Mg Tablet PO 07/05/23 07:59 40 mg DAILYWM JOSIAH Administration Sodium Chloride 10 ml 06/26/23 17:00 06/30/23 08:24 Sodium Chloride Flush 0.9% 10 Ml Syringe IVP Not Given 0100,0900,1700 JOSIAH Sodium Chloride 10 ml 06/26/23 16:32 06/29/23 10:23 Sodium Chloride Flush 0.9% 10 Ml Syringe IVP 10 ml PRN PRN Administration NEEDED PER PROVIDER ORDERS Venlafaxine HCl 225 mg 06/28/23 09:00 06/30/23 08:23 Venlafaxine Er 75 Mg Capsule PO 225 mg DAILY JOSIAH Administration Citalopram [CeleXA] 10 mg PO DAILY 04/24/22 RX: Albuterol 2.5 mg INH Q4H PRN 04/24/22 Fluticasone/Salmeterol [Advair Hfa 115-21 Mcg Inhaler] 2 puffs PO BID 06/27/23 Ipratropium [Atrovent] 2 puffs PO BID 06/27/23 Ipratropium/Albuterol [Duoneb] 3 ml INH Q4H PRN 06/27/23 RX: Venlafaxine ER [Effexor ER] 225 mg PO DAILY 06/27/23
[2023-06-30] MEDS ORDERED: GI COCKTAIL 120 ML BOTTLE PO SCH (18:00)
[2023-07-01] MEDS: oxyCODONE 5 MG TABLET PO PRN ×3 (00:51→21:49)
[2023-07-01] MEDS: SODIUM CHLORIDE FLUSH 0.9% 10 ML SYRINGE IVP SCH ×3 (00:57→19:32)
[2023-07-01] MEDS: IBUPROFEN 400 MG TABLET PO PRN (03:59)
[2023-07-01] MEDS: SODIUM CHLORIDE 0.9% 1,000 ML IV SCH (04:00)
[2023-07-01 05:37] LABS: BASOPHILS % (AUTO) 0.1 %; EOSINOPHILS % (AUTO) 0.3 %; HCT - HEMATOCRIT 30.2 % (42.0-52.0); HGB - HEMOGLOBIN 9.3 g/dL (14.0-18.0); LYMPHOCYTES # (AUTO) 1.2 10^3/uL (1.5-3.5); LYMPHOCYTES % (AUTO) 15.9 %; MEAN CORPUSCULAR HEMOGLOBIN 28.9 pg (27.0-31.0); MEAN CORPUSCULAR HGB CONC 30.8 g/dL (32.0-36.0); MEAN CORPUSCULAR VOLUME 93.8 fL (80.0-94.0); MEAN PLATELET VOLUME 10.2 fL (7.4-11.4); MONOCYTES % (AUTO) 13.3 %; NEUTROPHILS # (AUTO) 5.3 10^3/uL (1.5-6.6); NRBC ABSOLUTE COUNT (AUTO) 0.09 x10^3/uL; NUCLEATED RED BLOOD CELLS AUTO 1.2 /100WBC; PLT - PLATELET COUNT 172 10^3/uL (130-450); RED BLOOD COUNT 3.22 10^6/uL (4.70-6.10); RED CELL DISTRIBUTION WIDTH 14.6 % (12.0-15.0); WHITE BLOOD COUNT 7.6 x10^3/uL (4.8-10.8)
[2023-07-01] MEDS: GABAPENTIN 100 MG CAPSULE PO SCH ×3 (06:11→21:49)
[2023-07-01] MEDS: PANTOPRAZOLE 40 MG TABLET PO SCH (06:11)
[2023-07-01 07:03] LABS: CALCIUM 8.4 mg/dL (8.5-10.3); POTASSIUM 5.1 mmol/L (3.5-4.5)
[2023-07-01] MEDS: BUDESONIDE 0.5 MG/2 ML NEB INH SCH (07:10)
[2023-07-01] MEDS: IPRATROPIUM/ALBUTEROL 3 ML NEB INH SCH ×2 (07:10→15:00)
[2023-07-01] MEDS ORDERED: DICLOFENAC SODIUM 1% GEL 50 GM TUBE TOP PRN (09:12)
--- NOTE | 2023-07-01 09:16 | PROVIDER PROGRESS NOTE ---
Assessment/Plan - Problem List (1) COPD with acute exacerbation Assessment/Plan: (1) COPD with acute exacerbation Assessment/Plan: --Successfully weaned from Optiflow to nasal cannula. -- Continue scheduled DuoNeb and Pulmicort. --Prednisone 40 mg daily for 5 days. --His baseline is 2L at rest and 4L with activity. Currently stable on 4L. (2) Pneumonia Assessment/Plan: --Completed 5 days of antibiotics. -- Sputum culture positive for Enterobacter cloacae complex. Ceftriaxone will provide coverage for this organism. (3) Acute kidney injury superimposed on CKD Assessment/Plan: --Renal function is stable. --Continue to monitor with daily BMP. (4) Weakness Assessment/Plan: --PT/OT recommending SNF. - Current Meds Current Meds: Current Medications Generic Name Dose Route Start Last Admin Trade Name Freq PRN Reason Stop Dose Admin Acetaminophen 650 mg 06/26/23 16:32 06/30/23 16:27 Acetaminophen 325 Mg Tablet PO 650 mg Q4HR PRN Administration Pain 1 to 4, or Fever Al Hydroxide/Mg Hydroxide 30 ml 06/27/23 20:03 06/29/23 18:20 Mag Hydrox/Al Hydrox/Simeth 30 Ml Udc PO 30 ml Q8H PRN Administration Heartburn Albuterol/Ipratropium 3 ml 06/26/23 19:00 07/01/23 07:10 Ipratropium/Albuterol 3 Ml Neb INH 3 ml RTQID JOSIAH Administration Budesonide 0.5 mg 06/26/23 19:00 07/01/23 07:10 Budesonide 0.5 Mg/2 Ml Neb INH 0.5 mg RTBID JOSIAH Administration Citalopram Hydrobromide 10 mg 06/27/23 12:00 06/30/23 08:23 Citalopram 10 Mg Tablet PO 10 mg DAILY JOSIAH Administration Enoxaparin Sodium 40 mg 06/29/23 09:00 06/30/23 08:23 Enoxaparin 40 Mg/0.4 Ml Syringe SUBQ 40 mg DAILY JOSIAH Administration Gabapentin 100 mg 06/27/23 14:00 07/01/23 06:11 Gabapentin 100 Mg Capsule PO 100 mg TID JOSIAH Administration Guaifenesin 600 mg 06/26/23 21:00 06/30/23 21:28 Guaifenesin 600 Mg Tablet PO 600 mg BID JOSIAH Administration Ibuprofen 400 mg 06/28/23 14:27 07/01/23 03:59 Ibuprofen 400 Mg Tablet PO 400 mg Q6HR PRN Administration Moderate Pain (Level 4-6) Lactobacillus Rhamnosus 1 cap 06/27/23 09:00 06/30/23 08:23 Lactobacillus Rhamnosus Gg Capsule PO 1 cap DAILY JOSIAH Administration Lidocaine 1 patch 06/28/23 09:00 06/30/23 08:28 Lidocaine Patch 5% TOP Not Given DAILY JOSIAH Lidocaine HCl 5 ml 06/27/23 20:03 06/27/23 20:36 Lidocaine Viscous 2% 15 Ml Oral Syringe MM 5 ml Q8H PRN Administration Heartburn Morphine Sulfate 1 mg 06/26/23 16:32 06/29/23 10:18 Morphine 2 Mg/Ml Carpuject IVP 1 mg Q2HR PRN Administration Dyspnea Multi-Ingredient Mouthwash/Gargle 30 ml 06/27/23 19:50 06/30/23 12:05 Gi Cocktail 120 Ml Bottle PO 30 ml Q8H PRN Administration Heartburn Multi-Ingredient Mouthwash/Gargle 30 ml 06/30/23 18:00 06/30/23 18:45 Gi Cocktail 120 Ml Bottle PO 07/01/23 17:59 30 ml ONCE JOSIAH Administration Multivitamins/Minerals 1 tab 06/29/23 08:00 06/30/23 08:23 Multivitamin W/Minerals Tablet PO 1 tab DAILYWM JOSIAH Administration Ondansetron HCl 4 mg 06/26/23 16:32 06/29/23 15:01 Ondansetron 4 Mg/2 Ml Vial IVP 4 mg Q6HR PRN Administration Nausea / Vomiting Oxycodone HCl 5 mg 06/27/23 11:22 07/01/23 00:51 Oxycodone 5 Mg Tablet PO 5 mg Q6H PRN Administration PAIN Pantoprazole Sodium 40 mg 06/29/23 08:00 07/01/23 06:11 Pantoprazole 40 Mg Tablet PO 40 mg QDAC JOSIAH Administration Prednisone 40 mg 06/30/23 08:00 06/30/23 08:23 Prednisone 20 Mg Tablet PO 07/05/23 07:59 40 mg DAILYWM JOSIAH Administration Sodium Chloride 10 ml 06/26/23 17:00 07/01/23 00:57 Sodium Chloride Flush 0.9% 10 Ml Syringe IVP 10 ml 0100,0900,1700 JOSIAH Administration Sodium Chloride 10 ml 06/26/23 16:32 06/29/23 10:23 Sodium Chloride Flush 0.9% 10 Ml Syringe IVP 10 ml PRN PRN Administration NEEDED PER PROVIDER ORDERS Venlafaxine HCl 225 mg 06/28/23 09:00 06/30/23 08:23 Venlafaxine Er 75 Mg Capsule PO 225 mg DAILY JOSIAH Administration - Lab Result Fish Bone Diagrams: 07/01/23 05:11 07/01/23 05:11 - Additional Planning My Orders: My Active Orders 06/30/23 18:00 Gi Cocktail 30 ml PO ONCE 07/02/23 05:00 BMP - BASIC METABOLIC PANEL [CHEM] DAILYLAB CBC [CBC - COMP BLD CT W/AUTO DIFF] [HEME] DAILYLAB 07/03/23 05:00 BMP - BASIC METABOLIC PANEL [CHEM] DAILYLAB 07/04/23 05:00 BMP - BASIC METABOLIC PANEL [CHEM] DAILYLAB Subjective - Subjective Patient Reports: Feeling Better, Resting Comfortably, Abdominal Pain (Some rib pain with coughing.) Objective Vital Signs: Vital Signs - 24 hr 06/30/23 06/30/23 06/30/23 15:17 16:06 20:55 Temperature 36.6 C Heart Rate 78 Heart Rate [ 106 H Brachial] Heart Rate [ Monitoring electrodes] Respiratory 17 16 Rate Blood Pressure 126/86 H [Right Brachial artery] O2 Saturation 97 If not protocol 4 4 4 : Oxygen Flow, liters/minute 07/01/23 07/01/23 07/01/23 00:30 06:16 07:11 Temperature 36.7 C 36.4 C L Heart Rate 78 Heart Rate [ 108 H Brachial] Heart Rate [ 98 Monitoring electrodes] Respiratory 20 20 Rate Blood Pressure 118/74 [Right Brachial artery] O2 Saturation 96 95 If not protocol 4 4 4 : Oxygen Flow, liters/minute Oxygen O2 Source Nasal cannula Oxygen Flow Rate 6 I&O (Last 24 Hrs): Intake and Output Totals x24h 06/29/23 06/30/23 07/01/23 23:59 23:59 23:59 Intake Total 2200 4080.550 1270.831 Output Total 2280 2275 500 Balance -80 1805.550 770.831 General: Alert, Oriented x3, Cooperative, No acute distress Neuro: Alert, CN 2-12 Grossly Intact, Oriented Times 3 Cardiovascular: Regular rate, Normal S1, Normal S2, No murmurs Respiratory: Chest non-tender, No respiratory distress, Breath sounds nml Abdomen: Normal bowel sounds, Soft, No tenderness, No hepatospenomegaly, No masses - Results Results: Laboratory Results WBC 7.6 x10^3/uL (4.8-10.8) 07/01/23 05:11 RBC 3.22 10^6/uL (4.70-6.10) L 07/01/23 05:11 Hgb 9.3 g/dL (14.0-18.0) L 07/01/23 05:11 Hct 30.2 % (42.0-52.0) L 07/01/23 05:11 MCV 93.8 fL (80.0-94.0) 07/01/23 05:11 MCH 28.9 pg (27.0-31.0) 07/01/23 05:11 MCHC 30.8 g/dL (32.0-36.0) L 07/01/23 05:11 RDW 14.6 % (12.0-15.0) 07/01/23 05:11 Plt Count 172 10^3/uL (130-450) 07/01/23 05:11 MPV 10.2 fL (7.4-11.4) 07/01/23 05:11 Neut # (Auto) 5.3 10^3/uL (1.5-6.6) 07/01/23 05:11 Lymph # (Auto) 1.2 10^3/uL (1.5-3.5) L 07/01/23 05:11 [place] # (Auto) 1.0 10^3/uL (0.0-1.0) 07/01/23 05:11 Eos # (Auto) 0.0 10^3/uL (0.0-0.7) 07/01/23 05:11 Baso # (Auto) 0.0 10^3/uL (0.0-0.1) 07/01/23 05:11 Absolute Nucleated RBC 0.09 x10^3/uL 07/01/23 05:11 Nucleated RBC % 1.2 /100WBC 07/01/23 05:11 Bld Gas Analysis Time 19006/26/23 17:50 Sample Site RIGHT RADIAL 06/26/23 17:50 ABG pH 7.42 (7.35-7.45) 06/26/23 17:50 ABG pCO2 38 mmHg (34-45) 06/26/23 17:50 ABG pO2 86 mmHg (80-100) 06/26/23 17:50 ABG HCO3 23.8 mmol/L (22.0-26.0) 06/26/23 17:50 ABG Total CO2 25.0 MMOL/L (21.0-29.0) 06/26/23 17:50 ABG O2 Saturation 96 % (94-98) 06/26/23 17:50 ABG Base Excess -0.4 mmol/L (-2.0-3.0) 06/26/23 17:50 Tarun Test POSITIVE 06/26/23 17:50 VBG pH 7.403 (7.31-7.41) 06/28/23 04:37 Ionized Calcium 1.11 mmol/L (1.15-1.33) L 06/28/23 04:37 O2 Liters/Min 30.00 LPM 06/26/23 17:50 FiO2 33.00 06/26/23 17:50 Sodium 139 mmol/L (135-145) 07/01/23 05:11 Potassium 5.1 mmol/L (3.5-4.5) H 07/01/23 05:11 Chloride 105 mmol/L (101-111) 07/01/23 05:11 Carbon Dioxide 30 mmol/L (21-32) 07/01/23 05:11 Anion Gap 4.0 (6-13) L 07/01/23 05:11 BUN 71 mg/dL (6-20) H 07/01/23 05:11 Creatinine 2.0 mg/dL (0.6-1.3) H 07/01/23 05:11 Estimated GFR (MDRD) 34 (>89) L 07/01/23 05:11 Glucose 111 mg/dL (74-104) H 07/01/23 05:11 POC Whole Bld Glucose 126 mg/dL (70 - 100) H 06/29/23 21:19 Calcium 8.4 mg/dL (8.5-10.3) L 07/01/23 05:11 Phosphorus 4.8 mg/dL (2.5-5.0) 06/28/23 04:37 Magnesium 2.5 mg/dL (1.7-2.3) H 06/28/23 04:37 Total Bilirubin 0.5 mg/dL (0.2-1.0) 06/26/23 15:18 AST 27 IU/L (10-42) 06/26/23 15:18 ALT 48 IU/L (10-60) 06/26/23 15:18 Alkaline Phosphatase 71 IU/L (42-121) 06/26/23 15:18 Troponin I High Sens 51.8 ng/L (2.3-19.7) H* 06/26/23 18:16 Total Protein 6.9 g/dL (6.4-8.9) 06/26/23 15:18 Albumin 4.0 g/dL (3.2-5.5) 06/26/23 15:18 Globulin 2.9 g/dL (2.1-4.2) 06/26/23 15:18 Albumin/Globulin Ratio 1.4 (1.0-2.2) 06/26/23 15:18 Lipase 13 U/L (11-82) 06/26/23 15:18 TSH 1.09 uIU/mL (0.34-5.60) 06/27/23 04:13 Nasal Adenovirus (PCR) NOT DETECTED 06/26/23 15:08 Nasal B. parapertussis DNA (PCR) NOT DETECTED 06/26/23 15:08 Nasal Coronavir 229E PCR NOT DETECTED 06/26/23 15:08 Nasal Coronavir HKU1 PCR NOT DETECTED 06/26/23 15:08 Nasal Coronavir NL63 PCR NOT DETECTED 06/26/23 15:08 Nasal Coronavir OC43 PCR NOT DETECTED 06/26/23 15:08 Nasal Enterovir/Rhinovir PCR NOT DETECTED 06/26/23 15:08 Nasal Influenza B PCR NOT DETECTED 06/26/23 15:08 Nasal Influenza A PCR NOT DETECTED 06/26/23 15:08 Nasal Parainfluen 1 PCR NOT DETECTED 06/26/23 15:08 Nasal Parainfluen 2 PCR NOT DETECTED 06/26/23 15:08 Nasal Parainfluen 3 PCR NOT DETECTED 06/26/23 15:08 Nasal Parainfluen 4 PCR NOT DETECTED 06/26/23 15:08 Nasal RSV (PCR) NOT DETECTED 06/26/23 15:08 Nasal Screen MRSA (PCR) NEGATIVE (NEGATIVE) 06/26/23 17:30 Nasal B.pertussis DNA PCR NOT DETECTED 06/26/23 15:08 Nasal C.pneumoniae (PCR) NOT DETECTED 06/26/23 15:08 Cristofer Human Metapneumo PCR NOT DETECTED 06/26/23 15:08 Nasal M.pneumoniae (PCR) NOT DETECTED 06/26/23 15:08 Nasal SARS-CoV-2 (PCR) NOT DETECTED 06/26/23 15:08 - Procedures Procedures: Procedures COLONOSCOPY (01/21/14) DRAINAGE OF R PLEURAL CAV WITH DRAIN DEV, PERC APPROACH (11/06/15) REMOVAL OF DRAIN DEV FROM R PLEURAL CAV, LAST REMODELER REPAIRER APPROACH (11/06/15) Sepsis Event Note (H) - Evaluation Current Stage of Sepsis: Ruled out Possible source of Sepsis: positive: Pulmonary - Sepsis Criteria Sepsis Criteria: Recorded Heart Rate greater than 90 bpm, Recorded Respiratory Rate greater than 20 Current Medications - Current Medications Current Medications: Active Medications Generic Name Dose Route Start Last Admin Trade Name Freq PRN Reason Stop Dose Admin Acetaminophen 650 mg 06/26/23 16:32 06/30/23 16:27 Acetaminophen 325 Mg Tablet PO 650 mg Q4HR PRN Administration Pain 1 to 4, or Fever Al Hydroxide/Mg Hydroxide 30 ml 06/27/23 20:03 06/29/23 18:20 Mag Hydrox/Al Hydrox/Simeth 30 Ml Udc PO 30 ml Q8H PRN Administration Heartburn Albuterol/Ipratropium 3 ml 06/26/23 16:44 Ipratropium/Albuterol 3 Ml Neb INH Q4HR PRN Wheezing Albuterol/Ipratropium 3 ml 06/26/23 19:00 07/01/23 07:10 Ipratropium/Albuterol 3 Ml Neb INH 3 ml RTQID JOSIAH Administration Budesonide 0.5 mg 06/26/23 19:00 07/01/23 07:10 Budesonide 0.5 Mg/2 Ml Neb INH 0.5 mg RTBID JOSIAH Administration Citalopram Hydrobromide 10 mg 06/27/23 12:00 06/30/23 08:23 Citalopram 10 Mg Tablet PO 10 mg DAILY JOSIAH Administration Diclofenac Sodium 2 gm 07/01/23 09:12 Diclofenac Sodium 1% Gel 50 Gm Tube TOP QID PRN Mild Pain (Level 1-3) Enoxaparin Sodium 40 mg 06/29/23 09:00 06/30/23 08:23 Enoxaparin 40 Mg/0.4 Ml Syringe SUBQ 40 mg DAILY JOSIAH Administration Gabapentin 100 mg 06/27/23 14:00 07/01/23 06:11 Gabapentin 100 Mg Capsule PO 100 mg TID JOSIAH Administration Guaifenesin 600 mg 06/26/23 21:00 06/30/23 21:28 Guaifenesin 600 Mg Tablet PO 600 mg BID JOSIAH Administration Ibuprofen 400 mg 06/28/23 14:27 07/01/23 03:59 Ibuprofen 400 Mg Tablet PO 400 mg Q6HR PRN Administration Moderate Pain (Level 4-6) Lactobacillus Rhamnosus 1 cap 06/27/23 09:00 06/30/23 08:23 Lactobacillus Rhamnosus Gg Capsule PO 1 cap DAILY JOSIAH Administration Lidocaine 1 patch 06/28/23 09:00 06/30/23 08:28 Lidocaine Patch 5% TOP Not Given DAILY [facility] Lidocaine HCl 5 ml 06/27/23 20:03 06/27/23 20:36 Lidocaine Viscous 2% 15 Ml Oral Syringe MM 5 ml Q8H PRN Administration Heartburn Morphine Sulfate 1 mg 06/26/23 16:32 06/29/23 10:18 Morphine 2 Mg/Ml Carpuject IVP 1 mg Q2HR PRN Administration Dyspnea Multi-Ingredient Mouthwash/Gargle 30 ml 06/27/23 19:50 06/30/23 12:05 Gi Cocktail 120 Ml Bottle PO 30 ml Q8H PRN Administration Heartburn Multi-Ingredient Mouthwash/Gargle 30 ml 06/30/23 18:00 06/30/23 18:45 Gi Cocktail 120 Ml Bottle PO 07/01/23 17:59 30 ml ONCE JOSIAH Administration Multivitamins/Minerals 1 tab 06/29/23 08:00 06/30/23 08:23 Multivitamin W/Minerals Tablet PO 1 tab DAILYWM JOSIAH Administration Ondansetron HCl 4 mg 06/26/23 16:32 06/29/23 15:01 Ondansetron 4 Mg/2 Ml Vial IVP 4 mg Q6HR PRN Administration Nausea / Vomiting Oxycodone HCl 5 mg 06/27/23 11:22 07/01/23 00:51 Oxycodone 5 Mg Tablet PO 5 mg Q6H PRN Administration PAIN Pantoprazole Sodium 40 mg 06/29/23 08:00 07/01/23 06:11 Pantoprazole 40 Mg Tablet PO 40 mg QDAC JOSIAH Administration Prednisone 40 mg 06/30/23 08:00 06/30/23 08:23 Prednisone 20 Mg Tablet PO 07/05/23 07:59 40 mg DAILYWM JOSIAH Administration Sodium Chloride 10 ml 06/26/23 17:00 07/01/23 00:57 Sodium Chloride Flush 0.9% 10 Ml Syringe IVP 10 ml 0100,0900,1700 JOSIAH Administration Sodium Chloride 10 ml 06/26/23 16:32 06/29/23 10:23 Sodium Chloride Flush 0.9% 10 Ml Syringe IVP 10 ml PRN PRN Administration NEEDED PER PROVIDER ORDERS Venlafaxine HCl 225 mg 06/28/23 09:00 06/30/23 08:23 Venlafaxine Er 75 Mg Capsule PO 225 mg DAILY JOSIAH Administration Albuterol 2.5 mg INH Q4H PRN 04/24/22 Citalopram [CeleXA] 10 mg PO DAILY 04/24/22 Fluticasone/Salmeterol [Advair Hfa 115-21 Mcg Inhaler] 2 puffs PO BID 06/27/23 Ipratropium [Atrovent] 2 puffs PO BID 06/27/23 Ipratropium/Albuterol [Duoneb] 3 ml INH Q4H PRN 06/27/23 Venlafaxine ER [Effexor ER] 225 mg PO DAILY 06/27/23
[2023-07-01] MEDS: predniSONE 20 MG TABLET PO SCH (09:38)
[2023-07-01] MEDS: LACTOBACILLUS RHAMNOSUS GG CAPSULE PO SCH (09:39)
[2023-07-01] MEDS: ENOXAPARIN 40 MG/0.4 ML SYRINGE SUBQ SCH (09:40)
[2023-07-01] MEDS: MULTIVITAMIN W/MINERALS TABLET PO SCH (09:40)
[2023-07-01] MEDS: CITALOPRAM 10 MG TABLET PO SCH (09:40)
[2023-07-01] MEDS: guaiFENesin 600 MG TABLET PO SCH ×2 (09:40→21:49)
[2023-07-01] MEDS: LIDOCAINE PATCH 5% TOP SCH (09:41)
[2023-07-01] MEDS: VENLAFAXINE ER 75 MG CAPSULE PO SCH (09:55)
--- NOTE | 2023-07-01 15:35 | PROVIDER PROGRESS NOTE ---
Assessment/Plan - Problem List (1) COPD with acute exacerbation Assessment/Plan: (1) COPD with acute exacerbation Assessment/Plan: --Successfully weaned from Optiflow to nasal cannula. -- Continue scheduled DuoNeb and Pulmicort. --Prednisone 40 mg daily for 5 days. --His baseline is 2L at rest and 4L with activity. Currently stable on 4L. (2) Pneumonia Assessment/Plan: --Completed 5 days of antibiotics. -- Sputum culture positive for Enterobacter cloacae complex. Ceftriaxone will provide coverage for this organism. (3) Acute kidney injury superimposed on CKD Assessment/Plan: --Renal function is stable. --Continue to monitor with daily BMP. (4) Weakness Assessment/Plan: --PT/OT recommending SNF. - Current Meds Current Meds: Current Medications Generic Name Dose Route Start Last Admin Trade Name Freq PRN Reason Stop Dose Admin Acetaminophen 650 mg 06/26/23 16:32 06/30/23 16:27 Acetaminophen 325 Mg Tablet PO 650 mg Q4HR PRN Administration Pain 1 to 4, or Fever Al Hydroxide/Mg Hydroxide 30 ml 06/27/23 20:03 06/29/23 18:20 Mag Hydrox/Al Hydrox/Simeth 30 Ml Udc PO 30 ml Q8H PRN Administration Heartburn Albuterol/Ipratropium 3 ml 06/26/23 19:00 07/01/23 15:00 Ipratropium/Albuterol 3 Ml Neb INH 3 ml RTQID JOSIAH Administration Budesonide 0.5 mg 06/26/23 19:00 07/01/23 07:10 Budesonide 0.5 Mg/2 Ml Neb INH 0.5 mg RTBID JOSIAH Administration Citalopram Hydrobromide 10 mg 06/27/23 12:00 07/01/23 09:40 Citalopram 10 Mg Tablet PO 10 mg DAILY JOSIAH Administration Enoxaparin Sodium 40 mg 06/29/23 09:00 07/01/23 09:40 Enoxaparin 40 Mg/0.4 Ml Syringe SUBQ 40 mg DAILY JOSIAH Administration Gabapentin 100 mg 06/27/23 14:00 07/01/23 14:17 Gabapentin 100 Mg Capsule PO 100 mg TID JOSIAH Administration Guaifenesin 600 mg 06/26/23 21:00 07/01/23 09:40 Guaifenesin 600 Mg Tablet PO 600 mg BID JOSIAH Administration Ibuprofen 400 mg 06/28/23 14:27 07/01/23 03:59 Ibuprofen 400 Mg Tablet PO 400 mg Q6HR PRN Administration Moderate Pain (Level 4-6) Lactobacillus Rhamnosus 1 cap 06/27/23 09:00 07/01/23 09:39 Lactobacillus Rhamnosus Gg Capsule PO 1 cap DAILY JOSIAH Administration Lidocaine 1 patch 06/28/23 09:00 07/01/23 09:41 Lidocaine Patch 5% TOP Not Given DAILY JOSIAH Lidocaine HCl 5 ml 06/27/23 20:03 06/27/23 20:36 Lidocaine Viscous 2% 15 Ml Oral Syringe MM 5 ml Q8H PRN Administration Heartburn Morphine Sulfate 1 mg 06/26/23 16:32 06/29/23 10:18 Morphine 2 Mg/Ml Carpuject IVP 1 mg Q2HR PRN Administration Dyspnea Multi-Ingredient Mouthwash/Gargle 30 ml 06/27/23 19:50 06/30/23 12:05 Gi Cocktail 120 Ml Bottle PO 30 ml Q8H PRN Administration Heartburn Multi-Ingredient Mouthwash/Gargle 30 ml 06/30/23 18:00 06/30/23 18:45 Gi Cocktail 120 Ml Bottle PO 07/01/23 17:59 30 ml ONCE JOSIAH Administration Multivitamins/Minerals 1 tab 06/29/23 08:00 07/01/23 09:40 Multivitamin W/Minerals Tablet PO 1 tab DAILYWM JOSIAH Administration Ondansetron HCl 4 mg 06/26/23 16:32 06/29/23 15:01 Ondansetron 4 Mg/2 Ml Vial IVP 4 mg Q6HR PRN Administration Nausea / Vomiting Oxycodone HCl 5 mg 06/27/23 11:22 07/01/23 09:39 Oxycodone 5 Mg Tablet PO 5 mg Q6H PRN Administration PAIN Pantoprazole Sodium 40 mg 06/29/23 08:00 07/01/23 06:11 Pantoprazole 40 Mg Tablet PO 40 mg QDAC JOSIAH Administration Sodium Chloride 10 ml 06/26/23 17:00 07/01/23 09:41 Sodium Chloride Flush 0.9% 10 Ml Syringe IVP 10 ml 0100,0900,1700 JOSIAH Administration Sodium Chloride 10 ml 06/26/23 16:32 06/29/23 10:23 Sodium Chloride Flush 0.9% 10 Ml Syringe IVP 10 ml PRN PRN Administration NEEDED PER PROVIDER ORDERS Venlafaxine HCl 225 mg 06/28/23 09:00 07/01/23 09:55 Venlafaxine Er 75 Mg Capsule PO 225 mg DAILY JOSIAH Administration - Lab Result Fish Bone Diagrams: 07/01/23 05:11 07/01/23 05:11 - Additional Planning My Orders: My Active Orders 06/30/23 18:00 Gi Cocktail 30 ml PO ONCE 07/01/23 09:12 Diclofenac Sodium 1% Gel [Voltaren Gel] 2 gm TOP QID PRN 07/02/23 05:00 BMP - BASIC METABOLIC PANEL [CHEM] DAILYLAB CBC [CBC - COMP BLD CT W/AUTO DIFF] [HEME] DAILYLAB 07/03/23 05:00 BMP - BASIC METABOLIC PANEL [CHEM] DAILYLAB 07/04/23 05:00 BMP - BASIC METABOLIC PANEL [CHEM] DAILYLAB Subjective - Subjective Patient Reports: Feeling Better, Resting Comfortably, No Complaints (Feeling better today. Will stop his prednisone.) Objective Vital Signs: Vital Signs - 24 hr 06/30/23 06/30/23 07/01/23 16:06 20:55 00:30 Temperature 36.6 C 36.7 C Heart Rate Heart Rate [ 106 H 108 H Brachial] Heart Rate [ Monitoring electrodes] Respiratory 16 20 Rate Blood Pressure 126/86 H 118/74 [Right Brachial artery] O2 Saturation 97 96 If not protocol 4 4 4 : Oxygen Flow, liters/minute 07/01/23 07/01/23 07/01/23 06:16 07:11 09:35 Temperature 36.4 C L 36.4 C L Heart Rate 78 Heart Rate [ 100 Brachial] Heart Rate [ 98 Monitoring electrodes] Respiratory 20 18 Rate Blood Pressure 110/71 [Right Brachial artery] O2 Saturation 95 97 If not protocol 4 4 4 : Oxygen Flow, liters/minute 07/01/23 15:01 Temperature Heart Rate 88 Heart Rate [ Brachial] Heart Rate [ Monitoring electrodes] Respiratory 18 Rate Blood Pressure [Right Brachial artery] O2 Saturation If not protocol 4 : Oxygen Flow, liters/minute Oxygen O2 Source Nasal cannula Oxygen Flow Rate 6 I&O (Last 24 Hrs): Intake and Output Totals x24h 06/29/23 06/30/23 07/01/23 23:59 23:59 23:59 Intake Total 2200 4080.550 2630.829 Output Total 2280 2275 500 Balance -80 1094.901 3251.829 General: Alert, Oriented x3, Cooperative, No acute distress Neuro: Alert, CN 2-12 Grossly Intact, Oriented Times 3 Cardiovascular: Regular rate, Normal S1, Normal S2, No murmurs Respiratory: Chest non-tender, No respiratory distress, Breath sounds nml Abdomen: Normal bowel sounds, Soft, No tenderness, No hepatospenomegaly, No mas ses Extremities: No clubbing, No cyanosis, No edema, Normal pulses, No tend erness/swelling - Results Results: Laboratory Results WBC 7.6 x10^3/uL (4.8-10.8) 07/01/23 05:11 RBC 3.22 10^6/uL (4.70-6.10) L 07/01/23 05:11 Hgb 9.3 g/dL (14.0-18.0) L 07/01/23 05:11 Hct 30.2 % (42.0-52.0) L 07/01/23 05:11 MCV 93.8 fL (80.0-94.0) 07/01/23 05:11 MCH 28.9 pg (27.0-31.0) 07/01/23 05:11 MCHC 30.8 g/dL (32.0-36.0) L 07/01/23 05:11 RDW 14.6 % (12.0-15.0) 07/01/23 05:11 Plt Count 172 10^3/uL (130-450) 07/01/23 05:11 MPV 10.2 fL (7.4-11.4) 07/01/23 05:11 Neut # (Auto) 5.3 10^3/uL (1.5-6.6) 07/01/23 05:11 Lymph # (Auto) 1.2 10^3/uL (1.5-3.5) L 07/01/23 05:11 Cowley # (Auto) 1.0 10^3/uL (0.0-1.0) 07/01/23 05:11 Eos # (Auto) 0.0 10^3/uL (0.0-0.7) 07/01/23 05:11 Baso # (Auto) 0.0 10^3/uL (0.0-0.1) 07/01/23 05:11 Absolute Nucleated RBC 0.09 x10^3/uL 07/01/23 05:11 Nucleated RBC % 1.2 /100WBC 07/01/23 05:11 Bld Gas Analysis Time 1903 06/26/23 17:50 Sample Site RIGHT RADIAL 06/26/23 17:50 ABG pH 7.42 (7.35-7.45) 06/26/23 17:50 ABG pCO2 38 mmHg (34-45) 06/26/23 17:50 ABG pO2 86 mmHg (80-100) 06/26/23 17:50 ABG HCO3 23.8 mmol/L (22.0-26.0) 06/26/23 17:50 ABG Total CO2 25.0 MMOL/L (21.0-29.0) 06/26/23 17:50 ABG O2 Saturation 96 % (94-98) 06/26/23 17:50 ABG Base Excess -0.4 mmol/L (-2.0-3.0) 06/26/23 17:50 Tarun Test POSITIVE 06/26/23 17:50 VBG pH 7.403 (7.31-7.41) 06/28/23 04:37 Ionized Calcium 1.11 mmol/L (1.15-1.33) L 06/28/23 04:37 O2 Liters/Min 30.00 LPM 06/26/23 17:50 FiO2 33.00 06/26/23 17:50 Sodium 139 mmol/L (135-145) 07/01/23 05:11 Potassium 5.1 mmol/L (3.5-4.5) H 07/01/23 05:11 Chloride 105 mmol/L (101-111) 07/01/23 05:11 Carbon Dioxide 30 mmol/L (21-32) 07/01/23 05:11 Anion Gap 4.0 (6-13) L 07/01/23 05:11 BUN 71 mg/dL (6-20) H 07/01/23 05:11 Creatinine 2.0 mg/dL (0.6-1.3) H 07/01/23 05:11 Estimated GFR (MDRD) 34 (>89) L 07/01/23 05:11 Glucose 111 mg/dL (74-104) H 07/01/23 05:11 POC Whole Bld Glucose 126 mg/dL (70 - 100) H 06/29/23 21:19 Calcium 8.4 mg/dL (8.5-10.3) L 07/01/23 05:11 Phosphorus 4.8 mg/dL (2.5-5.0) 06/28/23 04:37 Magnesium 2.5 mg/dL (1.7-2.3) H 06/28/23 04:37 Total Bilirubin 0.5 mg/dL (0.2-1.0) 06/26/23 15:18 AST 27 IU/L (10-42) 06/26/23 15:18 ALT 48 IU/L (10-60) 06/26/23 15:18 Alkaline Phosphatase 71 IU/L (42-121) 06/26/23 15:18 Troponin I High Sens 51.8 ng/L (2.3-19.7) H* 06/26/23 18:16 Total Protein 6.9 g/dL (6.4-8.9) 06/26/23 15:18 Albumin 4.0 g/dL (3.2-5.5) 06/26/23 15:18 Globulin 2.9 g/dL (2.1-4.2) 06/26/23 15:18 Albumin/Globulin Ratio 1.4 (1.0-2.2) 06/26/23 15:18 Lipase 13 U/L (11-82) 06/26/23 15:18 TSH 1.09 uIU/mL (0.34-5.60) 06/27/23 04:13 Nasal Adenovirus (PCR) NOT DETECTED 06/26/23 15:08 Nasal B. parapertussis DNA (PCR) NOT DETECTED 06/26/23 15:08 Nasal Coronavir 229E PCR NOT DETECTED 06/26/23 15:08 Nasal Coronavir HKU1 PCR NOT DETECTED 06/26/23 15:08 Nasal Coronavir NL63 PCR NOT DETECTED 06/26/23 15:08 Nasal Coronavir OC43 PCR NOT DETECTED 06/26/23 15:08 Nasal Enterovir/Rhinovir PCR NOT DETECTED 06/26/23 15:08 Nasal Influenza B PCR NOT DETECTED 06/26/23 15:08 Nasal Influenza A PCR NOT DETECTED 06/26/23 15:08 Nasal Parainfluen 1 PCR NOT DETECTED 06/26/23 15:08 Nasal Parainfluen 2 PCR NOT DETECTED 06/26/23 15:08 Nasal Parainfluen 3 PCR NOT DETECTED 06/26/23 15:08 Nasal Parainfluen 4 PCR NOT DETECTED 06/26/23 15:08 Nasal RSV (PCR) NOT DETECTED 06/26/23 15:08 Nasal Screen MRSA (PCR) NEGATIVE (NEGATIVE) 06/26/23 17:30 Nasal B.pertussis DNA PCR NOT DETECTED 06/26/23 15:08 Nasal C.pneumoniae (PCR) NOT DETECTED 06/26/23 15:08 Cristofer Human Metapneumo PCR NOT DETECTED 06/26/23 15:08 Nasal M.pneumoniae (PCR) NOT DETECTED 06/26/23 15:08 Nasal SARS-CoV-2 (PCR) NOT DETECTED 06/26/23 15:08 - Procedures Procedures: Procedures COLONOSCOPY (01/21/14) DRAINAGE OF R PLEURAL CAV WITH DRAIN DEV, PERC APPROACH (11/06/15) REMOVAL OF DRAIN DEV FROM R PLEURAL CAV, BLUE SPLIT TRIMMER APPROACH (11/06/15) Sepsis Event Note (H) - Evaluation Current Stage of Sepsis: Ruled out Possible source of Sepsis: positive: Pulmonary - Sepsis Criteria Sepsis Criteria: Recorded Heart Rate greater than 90 bpm, Recorded Respiratory Rate greater than 20 Current Medications - Current Medications Current Medications: Active Medications Generic Name Dose Route Start Last Admin Trade Name Freq PRN Reason Stop Dose Admin Acetaminophen 650 mg 06/26/23 16:32 06/30/23 16:27 Acetaminophen 325 Mg Tablet PO 650 mg Q4HR PRN Administration Pain 1 to 4, or Fever Al Hydroxide/Mg Hydroxide 30 ml 06/27/23 20:03 06/29/23 18:20 Mag Hydrox/Al Hydrox/Simeth 30 Ml Udc PO 30 ml Q8H PRN Administration Heartburn Albuterol/Ipratropium 3 ml 06/26/23 16:44 Ipratropium/Albuterol 3 Ml Neb INH Q4HR PRN Wheezing Albuterol/Ipratropium 3 ml 06/26/23 19:00 07/01/23 15:00 Ipratropium/Albuterol 3 Ml Neb INH 3 ml RTQID JOSIAH Administration Budesonide 0.5 mg 06/26/23 19:00 07/01/23 07:10 Budesonide 0.5 Mg/2 Ml Neb INH 0.5 mg RTBID JOSIAH Administration Citalopram Hydrobromide 10 mg 06/27/23 12:00 07/01/23 09:40 Citalopram 10 Mg Tablet PO 10 mg DAILY JOSIAH Administration Diclofenac Sodium 2 gm 07/01/23 09:12 Diclofenac Sodium 1% Gel 50 Gm Tube TOP QID PRN Mild Pain (Level 1-3) Enoxaparin Sodium 40 mg 06/29/23 09:00 07/01/23 09:40 Enoxaparin 40 Mg/0.4 Ml Syringe SUBQ 40 mg DAILY JOSIAH Administration Gabapentin 100 mg 06/27/23 14:00 07/01/23 14:17 Gabapentin 100 Mg Capsule PO 100 mg TID JOSIAH Administration Guaifenesin 600 mg 06/26/23 21:00 07/01/23 09:40 Guaifenesin 600 Mg Tablet PO 600 mg BID JOSIAH Administration Ibuprofen 400 mg 06/28/23 14:27 07/01/23 03:59 Ibuprofen 400 Mg Tablet PO 400 mg Q6HR PRN Administration Moderate Pain (Level 4-6) Lactobacillus Rhamnosus 1 cap 06/27/23 09:00 07/01/23 09:39 Lactobacillus Rhamnosus Gg Capsule PO 1 cap DAILY [facility] Administration Lidocaine 1 patch 06/28/23 09:00 07/01/23 09:41 Lidocaine Patch 5% TOP Not Given DAILY [facility] Lidocaine HCl 5 ml 06/27/23 20:03 06/27/23 20:36 Lidocaine Viscous 2% 15 Ml Oral Syringe MM 5 ml Q8H PRN Administration Heartburn Morphine Sulfate 1 mg 06/26/23 16:32 06/29/23 10:18 Morphine 2 Mg/Ml Carpuject IVP 1 mg Q2HR PRN Administration Dyspnea Multi-Ingredient Mouthwash/Gargle 30 ml 06/27/23 19:50 06/30/23 12:05 Gi Cocktail 120 Ml Bottle PO 30 ml Q8H PRN Administration Heartburn Multi-Ingredient Mouthwash/Gargle 30 ml 06/30/23 18:00 06/30/23 18:45 Gi Cocktail 120 Ml Bottle PO 07/01/23 17:59 30 ml ONCE JOSIAH Administration Multivitamins/Minerals 1 tab 06/29/23 08:00 07/01/23 09:40 Multivitamin W/Minerals Tablet PO 1 tab DAILYWM JOSIAH Administration Ondansetron HCl 4 mg 06/26/23 16:32 06/29/23 15:01 Ondansetron 4 Mg/2 Ml Vial IVP 4 mg Q6HR PRN Administration Nausea / Vomiting Oxycodone HCl 5 mg 06/27/23 11:22 07/01/23 09:39 Oxycodone 5 Mg Tablet PO 5 mg Q6H PRN Administration PAIN Pantoprazole Sodium 40 mg 06/29/23 08:00 07/01/23 06:11 Pantoprazole 40 Mg Tablet PO 40 mg QDAC JOSIAH Administration Sodium Chloride 10 ml 06/26/23 17:00 07/01/23 09:41 Sodium Chloride Flush 0.9% 10 Ml Syringe IVP 10 ml 0100,0900,1700 JOSIAH Administration Sodium Chloride 10 ml 06/26/23 16:32 06/29/23 10:23 Sodium Chloride Flush 0.9% 10 Ml Syringe IVP 10 ml PRN PRN Administration NEEDED PER PROVIDER ORDERS Venlafaxine HCl 225 mg 06/28/23 09:00 07/01/23 09:55 Venlafaxine Er 75 Mg Capsule PO 225 mg DAILY JOSIAH Administration Albuterol 2.5 mg INH Q4H PRN 04/24/22 Citalopram [CeleXA] 10 mg PO DAILY 04/24/22 Fluticasone/Salmeterol [Advair Hfa 115-21 Mcg Inhaler] 2 puffs PO BID 06/27/23 Ipratropium [Atrovent] 2 puffs PO BID 06/27/23 Ipratropium/Albuterol [Duoneb] 3 ml INH Q4H PRN 06/27/23 Venlafaxine ER [Effexor ER] 225 mg PO DAILY 06/27/23
[2023-07-01] MEDS: ACETAMINOPHEN 325 MG TABLET PO PRN (19:31)
[2023-07-02] MEDS: SODIUM CHLORIDE FLUSH 0.9% 10 ML SYRINGE IVP SCH ×3 (00:43→21:24)
[2023-07-02 05:41] LABS: BASOPHILS % (AUTO) 0.2 %; EOSINOPHILS # (AUTO) 0.2 10^3/uL (0.0-0.7); EOSINOPHILS % (AUTO) 2.4 %; HCT - HEMATOCRIT 31.3 % (42.0-52.0); HGB - HEMOGLOBIN 9.6 g/dL (14.0-18.0); LYMPHOCYTES # (AUTO) 1.2 10^3/uL (1.5-3.5); LYMPHOCYTES % (AUTO) 12.2 %; MEAN CORPUSCULAR HEMOGLOBIN 29.2 pg (27.0-31.0); MEAN CORPUSCULAR HGB CONC 30.7 g/dL (32.0-36.0); MEAN CORPUSCULAR VOLUME 95.1 fL (80.0-94.0); MEAN PLATELET VOLUME 10.2 fL (7.4-11.4); MONOCYTES # (AUTO) 0.9 10^3/uL (0.0-1.0); MONOCYTES % (AUTO) 8.5 %; NEUTROPHILS # (AUTO) 7.6 10^3/uL (1.5-6.6); NEUTROPHILS % (AUTO) 75.4 %; NRBC ABSOLUTE COUNT (AUTO) 0.15 x10^3/uL; NUCLEATED RED BLOOD CELLS AUTO 1.5 /100WBC; PLT - PLATELET COUNT 168 10^3/uL (130-450); RED BLOOD COUNT 3.29 10^6/uL (4.70-6.10); RED CELL DISTRIBUTION WIDTH 14.8 % (12.0-15.0); WHITE BLOOD COUNT 10.1 x10^3/uL (4.8-10.8)
[2023-07-02 06:23] LABS: CALCIUM 8.5 mg/dL (8.5-10.3); CREATININE 1.8 mg/dL (0.6-1.3); POTASSIUM 4.6 mmol/L (3.5-4.5)
[2023-07-02] MEDS: PANTOPRAZOLE 40 MG TABLET PO SCH (06:44)
[2023-07-02] MEDS: GABAPENTIN 100 MG CAPSULE PO SCH ×3 (06:44→21:24)
[2023-07-02] MEDS: oxyCODONE 5 MG TABLET PO PRN ×2 (06:47→13:43)
[2023-07-02] MEDS: BUDESONIDE 0.5 MG/2 ML NEB INH SCH (07:25)
[2023-07-02] MEDS: IPRATROPIUM/ALBUTEROL 3 ML NEB INH SCH ×3 (07:25→15:17)
[2023-07-02] MEDS: MULTIVITAMIN W/MINERALS TABLET PO SCH (09:17)
[2023-07-02] MEDS: LACTOBACILLUS RHAMNOSUS GG CAPSULE PO SCH (09:17)
[2023-07-02] MEDS: ENOXAPARIN 40 MG/0.4 ML SYRINGE SUBQ SCH (09:17)
[2023-07-02] MEDS: CITALOPRAM 10 MG TABLET PO SCH (09:17)
[2023-07-02] MEDS: VENLAFAXINE ER 75 MG CAPSULE PO SCH (09:17)
[2023-07-02] MEDS: guaiFENesin 600 MG TABLET PO SCH ×2 (09:17→21:24)
[2023-07-02] MEDS: LIDOCAINE PATCH 5% TOP SCH (09:23)
[2023-07-02] MEDS: polyethylene glycoL 3350 17 GM PACKET PO SCH (09:23)
--- NOTE | 2023-07-02 13:46 | PROVIDER PROGRESS NOTE ---
Assessment/Plan - Problem List (1) COPD with acute exacerbation Assessment/Plan: (1) COPD with acute exacerbation Assessment/Plan: --Successfully weaned from Optiflow to nasal cannula. -- Continue scheduled DuoNeb and Pulmicort. --Prednisone 40 mg daily for 5 days. --His baseline is 2L at rest and 4L with activity. Currently stable on 4L. (2) Pneumonia Assessment/Plan: --Completed 5 days of antibiotics. -- Sputum culture positive for Enterobacter cloacae complex. Ceftriaxone will provide coverage for this organism. (3) Acute kidney injury superimposed on CKD Assessment/Plan: --Renal function is stable. Baseline creatinine near 1.7. (4) Weakness Assessment/Plan: --PT/OT recommending SNF. Currently pending placement. - Current Meds Current Meds: Current Medications Generic Name Dose Route Start Last Admin Trade Name Freq PRN Reason Stop Dose Admin Acetaminophen 650 mg 06/26/23 16:32 07/01/23 19:31 Acetaminophen 325 Mg Tablet PO 650 mg Q4HR PRN Administration Pain 1 to 4, or Fever Al Hydroxide/Mg Hydroxide 30 ml 06/27/23 20:03 06/29/23 18:20 Mag Hydrox/Al Hydrox/Simeth 30 Ml Udc PO 30 ml Q8H PRN Administration Heartburn Albuterol/Ipratropium 3 ml 06/26/23 19:00 07/02/23 11:11 Ipratropium/Albuterol 3 Ml Neb INH 3 ml RTQID JOSIAH Administration Budesonide 0.5 mg 06/26/23 19:00 07/02/23 07:25 Budesonide 0.5 Mg/2 Ml Neb INH 0.5 mg RTBID JOSIAH Administration Citalopram Hydrobromide 10 mg 06/27/23 12:00 07/02/23 09:17 Citalopram 10 Mg Tablet PO 10 mg DAILY JOSIAH Administration Enoxaparin Sodium 40 mg 06/29/23 09:00 07/02/23 09:17 Enoxaparin 40 Mg/0.4 Ml Syringe SUBQ 40 mg DAILY JOSIAH Administration Gabapentin 100 mg 06/27/23 14:00 07/02/23 13:43 Gabapentin 100 Mg Capsule PO 100 mg TID JOSIAH Administration Guaifenesin 600 mg 06/26/23 21:00 07/02/23 09:17 Guaifenesin 600 Mg Tablet PO 600 mg BID JOSIAH Administration Ibuprofen 400 mg 06/28/23 14:27 07/01/23 03:59 Ibuprofen 400 Mg Tablet PO 400 mg Q6HR PRN Administration Moderate Pain (Level 4-6) Lactobacillus Rhamnosus 1 cap 06/27/23 09:00 07/02/23 09:17 Lactobacillus Rhamnosus Gg Capsule PO 1 cap DAILY JOSIAH Administration Lidocaine 1 patch 06/28/23 09:00 07/02/23 09:23 Lidocaine Patch 5% TOP Not Given DAILY JOSIAH Lidocaine HCl 5 ml 06/27/23 20:03 06/27/23 20:36 Lidocaine Viscous 2% 15 Ml Oral Syringe MM 5 ml Q8H PRN Administration Heartburn Morphine Sulfate 1 mg 06/26/23 16:32 06/29/23 10:18 Morphine 2 Mg/Ml Carpuject IVP 1 mg Q2HR PRN Administration Dyspnea Multi-Ingredient Mouthwash/Gargle 30 ml 06/27/23 19:50 06/30/23 12:05 Gi Cocktail 120 Ml Bottle PO 30 ml Q8H PRN Administration Heartburn Multivitamins/Minerals 1 tab 06/29/23 08:00 07/02/23 09:17 Multivitamin W/Minerals Tablet PO 1 tab DAILYWM JOSIAH Administration Ondansetron HCl 4 mg 06/26/23 16:32 06/29/23 15:01 Ondansetron 4 Mg/2 Ml Vial IVP 4 mg Q6HR PRN Administration Nausea / Vomiting Oxycodone HCl 5 mg 06/27/23 11:22 07/02/23 13:43 Oxycodone 5 Mg Tablet PO 5 mg Q6H PRN Administration PAIN Pantoprazole Sodium 40 mg 06/29/23 08:00 07/02/23 06:44 Pantoprazole 40 Mg Tablet PO 40 mg QDAC JOSIAH Administration Polyethylene Glycol 17 gm 07/02/23 09:00 07/02/23 09:23 Polyethylene Glycol 3350 17 Gm Packet PO Not Given DAILY JOSIAH Sodium Chloride 10 ml 06/26/23 17:00 07/02/23 09:18 Sodium Chloride Flush 0.9% 10 Ml Syringe IVP 10 ml 0100,0900,1700 JOSIAH Administration Sodium Chloride 10 ml 06/26/23 16:32 06/29/23 10:23 Sodium Chloride Flush 0.9% 10 Ml Syringe IVP 10 ml PRN PRN Administration NEEDED PER PROVIDER ORDERS Venlafaxine HCl 225 mg 06/28/23 09:00 07/02/23 09:17 Venlafaxine Er 75 Mg Capsule PO 225 mg DAILY JOSIAH Administration - Lab Result Fish Bone Diagrams: 07/02/23 05:24 07/02/23 05:24 - Additional Planning My Orders: My Active Orders 07/02/23 09:00 polyethylene glycoL 3350 [Miralax] 17 gm PO DAILY 07/03/23 05:00 BMP - BASIC METABOLIC PANEL [CHEM] DAILYLAB 07/04/23 05:00 BMP - BASIC METABOLIC PANEL [CHEM] DAILYLAB Subjective - Subjective Patient Reports: Feeling Better, Resting Comfortably, No Complaints Objective Vital Signs: Vital Signs - 24 hr 07/01/23 07/01/23 07/01/23 15:01 15:54 20:08 Temperature 36.3 C L Heart Rate 88 Heart Rate [ 89 Brachial] Heart Rate [ Monitoring electrodes] Respiratory 18 24 Rate Blood Pressure 127/85 H [Right Brachial artery] O2 Saturation 97 If not protocol 4 4 4 : Oxygen Flow, liters/minute 07/02/23 07/02/23 07/02/23 01:00 01:30 07:26 Temperature 36.5 C Heart Rate 80 Heart Rate [ 97 Brachial] Heart Rate [ Monitoring electrodes] Respiratory 26 H 20 18 Rate Blood Pressure 114/83 H [Right Brachial artery] O2 Saturation 95 If not protocol 4 4 : Oxygen Flow, liters/minute 07/02/23 07/02/23 07/02/23 07:28 09:28 11:12 Temperature Heart Rate 88 Heart Rate [ Brachial] Heart Rate [ 96 Monitoring electrodes] Respiratory 16 22 Rate Blood Pressure 118/63 [Right Brachial artery] O2 Saturation 94 If not protocol 4 4 4 : Oxygen Flow, liters/minute Oxygen O2 Source Nasal cannula Oxygen Flow Rate 6 I&O (Last 24 Hrs): Intake and Output Totals x24h 06/30/23 07/01/23 07/02/23 23:59 23:59 23:59 Intake Total 4080.550 3080.829 1380 Output Total 2275 725 300 Balance 9106.773 4498.829 1080 General: Alert, Oriented x3, Cooperative, No acute distress Neuro: Alert, CN 2-12 Grossly Intact, Oriented Times 3 Cardiovascular: Regular rate, Normal S1, Normal S2, No murmurs Respiratory: Chest non-tender, No respiratory distress, Breath sounds nml Abdomen: Normal bowel sounds, Soft, No tenderness, No hepatospenomegaly, No masses Extremities: No clubbing, No cyanosis, No edema, Normal pulses, No tenderness/swelling - Results Results: Laboratory Results WBC 10.1 x10^3/uL (4.8-10.8) 07/02/23 05:24 RBC 3.29 10^6/uL (4.70-6.10) L 07/02/23 05:24 Hgb 9.6 g/dL (14.0-18.0) L 07/02/23 05:24 Hct 31.3 % (42.0-52.0) L 07/02/23 05:24 MCV 95.1 fL (80.0-94.0) H 07/02/23 05:24 MCH 29.2 pg (27.0-31.0) 07/02/23 05:24 MCHC 30.7 g/dL (32.0-36.0) L 07/02/23 05:24 RDW 14.8 % (12.0-15.0) 07/02/23 05:24 Plt Count 168 10^3/uL (130-450) 07/02/23 05:24 MPV 10.2 fL (7.4-11.4) 07/02/23 05:24 Neut # (Auto) 7.6 10^3/uL (1.5-6.6) H 07/02/23 05:24 Lymph # (Auto) 1.2 10^3/uL (1.5-3.5) L 07/02/23 05:24 [place] # (Auto) 0.9 10^3/uL (0.0-1.0) 07/02/23 05:24 Eos # (Auto) 0.2 10^3/uL (0.0-0.7) 07/02/23 05:24 Baso # (Auto) 0.0 10^3/uL (0.0-0.1) 07/02/23 05:24 Absolute Nucleated RBC 0.15 x10^3/uL 07/02/23 05:24 Nucleated RBC % 1.5 /100WBC 07/02/23 05:24 Bld Gas Analysis Time 19006/26/23 17:50 Sample Site RIGHT RADIAL 06/26/23 17:50 ABG pH 7.42 (7.35-7.45) 06/26/23 17:50 ABG pCO2 38 mmHg (34-45) 06/26/23 17:50 ABG pO2 86 mmHg (80-100) 06/26/23 17:50 ABG HCO3 23.8 mmol/L (22.0-26.0) 06/26/23 17:50 ABG Total CO2 25.0 MMOL/L (21.0-29.0) 06/26/23 17:50 ABG O2 Saturation 96 % (94-98) 06/26/23 17:50 ABG Base Excess -0.4 mmol/L (-2.0-3.0) 06/26/23 17:50 Tarun Test POSITIVE 06/26/23 17:50 VBG pH 7.403 (7.31-7.41) 06/28/23 04:37 Ionized Calcium 1.11 mmol/L (1.15-1.33) L 06/28/23 04:37 O2 Liters/Min 30.00 LPM 06/26/23 17:50 FiO2 33.00 06/26/23 17:50 Sodium 140 mmol/L (135-145) 07/02/23 05:24 Potassium 4.6 mmol/L (3.5-4.5) H 07/02/23 05:24 Chloride 107 mmol/L (101-111) 07/02/23 05:24 Carbon Dioxide 25 mmol/L (21-32) 07/02/23 05:24 Anion Gap 8.0 (6-13) 07/02/23 05:24 BUN 62 mg/dL (6-20) H 07/02/23 05:24 Creatinine 1.8 mg/dL (0.6-1.3) H 07/02/23 05:24 Estimated GFR (MDRD) 38 (>89) L 07/02/23 05:24 Glucose 97 mg/dL (74-104) 07/02/23 05:24 POC Whole Bld Glucose 126 mg/dL (70 - 100) H 06/29/23 21:19 Calcium 8.5 mg/dL (8.5-10.3) 07/02/23 05:24 Phosphorus 4.8 mg/dL (2.5-5.0) 06/28/23 04:37 Magnesium 2.5 mg/dL (1.7-2.3) H 06/28/23 04:37 Total Bilirubin 0.5 mg/dL (0.2-1.0) 06/26/23 15:18 AST 27 IU/L (10-42) 06/26/23 15:18 ALT 48 IU/L (10-60) 06/26/23 15:18 Alkaline Phosphatase 71 IU/L (42-121) 06/26/23 15:18 Troponin I High Sens 51.8 ng/L (2.3-19.7) H* 06/26/23 18:16 Total Protein 6.9 g/dL (6.4-8.9) 06/26/23 15:18 Albumin 4.0 g/dL (3.2-5.5) 06/26/23 15:18 Globulin 2.9 g/dL (2.1-4.2) 06/26/23 15:18 Albumin/Globulin Ratio 1.4 (1.0-2.2) 06/26/23 15:18 Lipase 13 U/L (11-82) 06/26/23 15:18 TSH 1.09 uIU/mL (0.34-5.60) 06/27/23 04:13 Nasal Adenovirus (PCR) NOT DETECTED 06/26/23 15:08 Nasal B. parapertussis DNA (PCR) NOT DETECTED 06/26/23 15:08 Nasal Coronavir 229E PCR NOT DETECTED 06/26/23 15:08 Nasal Coronavir HKU1 PCR NOT DETECTED 06/26/23 15:08 Nasal Coronavir NL63 PCR NOT DETECTED 06/26/23 15:08 Nasal Coronavir OC43 PCR NOT DETECTED 06/26/23 15:08 Nasal Enterovir/Rhinovir PCR NOT DETECTED 06/26/23 15:08 Nasal Influenza B PCR NOT DETECTED 06/26/23 15:08 Nasal Influenza A PCR NOT DETECTED 06/26/23 15:08 Nasal Parainfluen 1 PCR NOT DETECTED 06/26/23 15:08 Nasal Parainfluen 2 PCR NOT DETECTED 06/26/23 15:08 Nasal Parainfluen 3 PCR NOT DETECTED 06/26/23 15:08 Nasal Parainfluen 4 PCR NOT DETECTED 06/26/23 15:08 Nasal RSV (PCR) NOT DETECTED 06/26/23 15:08 Nasal Screen MRSA (PCR) NEGATIVE (NEGATIVE) 06/26/23 17:30 Nasal B.pertussis DNA PCR NOT DETECTED 06/26/23 15:08 Nasal C.pneumoniae (PCR) NOT DETECTED 06/26/23 15:08 Cristofer Human Metapneumo PCR NOT DETECTED 06/26/23 15:08 Nasal M.pneumoniae (PCR) NOT DETECTED 06/26/23 15:08 Nasal SARS-CoV-2 (PCR) NOT DETECTED 06/26/23 15:08 - Procedures Procedures: Procedures COLONOSCOPY (01/21/14) DRAINAGE OF R PLEURAL CAV WITH DRAIN DEV, PERC APPROACH (11/06/15) REMOVAL OF DRAIN DEV FROM R PLEURAL CAV, PRODUCTION MANAGER APPROACH (11/06/15) Sepsis Event Note (H) - Evaluation Current Stage of Sepsis: Ruled out Possible source of Sepsis: positive: Pulmonary - Sepsis Criteria Sepsis Criteria: Recorded Heart Rate greater than 90 bpm, Recorded Respiratory Rate greater than 20 Current Medications - Current Medications Current Medications: Active Medications Generic Name Dose Route Start Last Admin Trade Name Freq PRN Reason Stop Dose Admin Acetaminophen 650 mg 06/26/23 16:32 07/01/23 19:31 Acetaminophen 325 Mg Tablet PO 650 mg Q4HR PRN Administration Pain 1 to 4, or Fever Al Hydroxide/Mg Hydroxide 30 ml 06/27/23 20:03 06/29/23 18:20 Mag Hydrox/Al Hydrox/Simeth 30 Ml Udc PO 30 ml Q8H PRN Administration Heartburn Albuterol/Ipratropium 3 ml 06/26/23 16:44 Ipratropium/Albuterol 3 Ml Neb INH Q4HR PRN Wheezing Albuterol/Ipratropium 3 ml 06/26/23 19:00 07/02/23 11:11 Ipratropium/Albuterol 3 Ml Neb INH 3 ml RTQID JOSIAH Administration Budesonide 0.5 mg 06/26/23 19:00 07/02/23 07:25 Budesonide 0.5 Mg/2 Ml Neb INH 0.5 mg RTBID JOSIAH Administration Citalopram Hydrobromide 10 mg 06/27/23 12:00 07/02/23 09:17 Citalopram 10 Mg Tablet PO 10 mg DAILY JOSIAH Administration Diclofenac Sodium 2 gm 07/01/23 09:12 Diclofenac Sodium 1% Gel 50 Gm Tube TOP QID PRN Mild Pain (Level 1-3) Enoxaparin Sodium 40 mg 06/29/23 09:00 07/02/23 09:17 Enoxaparin 40 Mg/0.4 Ml Syringe SUBQ 40 mg DAILY JOSIAH Administration Gabapentin 100 mg 06/27/23 14:00 07/02/23 13:43 Gabapentin 100 Mg Capsule PO 100 mg TID JOSIAH Administration Guaifenesin 600 mg 06/26/23 21:00 07/02/23 09:17 Guaifenesin 600 Mg Tablet PO 600 mg BID JOSIAH Administration Ibuprofen 400 mg 06/28/23 14:27 07/01/23 03:59 Ibuprofen 400 Mg Tablet PO 400 mg Q6HR PRN Administration Moderate Pain (Level 4-6) Lactobacillus Rhamnosus 1 cap 06/27/23 09:00 07/02/23 09:17 Lactobacillus Rhamnosus Gg Capsule PO 1 cap DAILY JOSIAH Administration Lidocaine 1 patch 06/28/23 09:00 07/02/23 09:23 Lidocaine Patch 5% TOP Not Given DAILY JOSIAH Lidocaine HCl 5 ml 06/27/23 20:03 06/27/23 20:36 Lidocaine Viscous 2% 15 Ml Oral Syringe MM 5 ml Q8H PRN Administration Heartburn Morphine Sulfate 1 mg 06/26/23 16:32 06/29/23 10:18 Morphine 2 Mg/Ml Carpuject IVP 1 mg Q2HR PRN Administration Dyspnea Multi-Ingredient Mouthwash/Gargle 30 ml 06/27/23 19:50 06/30/23 12:05 Gi Cocktail 120 Ml Bottle PO 30 ml Q8H PRN Administration Heartburn Multivitamins/Minerals 1 tab 06/29/23 08:00 07/02/23 09:17 Multivitamin W/Minerals Tablet PO 1 tab DAILYWM JOSIAH Administration Ondansetron HCl 4 mg 06/26/23 16:32 06/29/23 15:01 Ondansetron 4 Mg/2 Ml Vial IVP 4 mg Q6HR PRN Administration Nausea / Vomiting Oxycodone HCl 5 mg 06/27/23 11:22 07/02/23 13:43 Oxycodone 5 Mg Tablet PO 5 mg Q6H PRN Administration PAIN Pantoprazole Sodium 40 mg 06/29/23 08:00 07/02/23 06:44 Pantoprazole 40 Mg Tablet PO 40 mg QDAC JOSIAH Administration Polyethylene Glycol 17 gm 07/02/23 09:00 07/02/23 09:23 Polyethylene Glycol 3350 17 Gm Packet PO Not Given DAILY JOSIAH Sodium Chloride 10 ml 06/26/23 17:00 07/02/23 09:18 Sodium Chloride Flush 0.9% 10 Ml Syringe IVP 10 ml 0100,0900,1700 JOSIAH Administration Sodium Chloride 10 ml 06/26/23 16:32 06/29/23 10:23 Sodium Chloride Flush 0.9% 10 Ml Syringe IVP 10 ml PRN PRN Administration NEEDED PER PROVIDER ORDERS Venlafaxine HCl 225 mg 06/28/23 09:00 07/02/23 09:17 Venlafaxine Er 75 Mg Capsule PO 225 mg DAILY JOSIAH Administration Albuterol 2.5 mg INH Q4H PRN 04/24/22 Citalopram [CeleXA] 10 mg PO DAILY 04/24/22 Fluticasone/Salmeterol [Advair Hfa 115-21 Mcg Inhaler] 2 puffs PO BID 06/27/23 Ipratropium [Atrovent] 2 puffs PO BID 06/27/23 Ipratropium/Albuterol [Duoneb] 3 ml INH Q4H PRN 06/27/23 Venlafaxine ER [Effexor ER] 225 mg PO DAILY 06/27/23
[2023-07-03] MEDS: ACETAMINOPHEN 325 MG TABLET PO PRN ×4 (00:09→16:32)
[2023-07-03] MEDS: SODIUM CHLORIDE FLUSH 0.9% 10 ML SYRINGE IVP SCH ×3 (00:10→21:04)
[2023-07-03] MEDS: IPRATROPIUM/ALBUTEROL 3 ML NEB INH SCH ×6 (03:31→17:36)
[2023-07-03] MEDS: BUDESONIDE 0.5 MG/2 ML NEB INH SCH ×4 (03:31→17:36)
[2023-07-03] MEDS: PANTOPRAZOLE 40 MG TABLET PO SCH (06:45)
[2023-07-03] MEDS: GABAPENTIN 100 MG CAPSULE PO SCH ×3 (06:45→21:04)
[2023-07-03] MEDS: ENOXAPARIN 40 MG/0.4 ML SYRINGE SUBQ SCH (07:45)
[2023-07-03] MEDS: MULTIVITAMIN W/MINERALS TABLET PO SCH (07:46)
[2023-07-03] MEDS: CITALOPRAM 10 MG TABLET PO SCH (07:46)
[2023-07-03] MEDS: LACTOBACILLUS RHAMNOSUS GG CAPSULE PO SCH (07:46)
[2023-07-03] MEDS: VENLAFAXINE ER 75 MG CAPSULE PO SCH (07:46)
[2023-07-03] MEDS: guaiFENesin 600 MG TABLET PO SCH ×2 (07:47→21:04)
--- NOTE | 2023-07-03 11:01 | XRAY Report ---
PROCEDURE: Chest 1 View X-Ray INDICATIONS: Shortness of breath TECHNIQUE: One view of the chest was acquired. COMPARISON: 06/26/2023 FINDINGS: Surgical changes and devices: None. Lungs and pleura: The lungs demonstrate emphysematous changes with bullous changes in the right lowe r lobe. Mediastinum: Mediastinal contours appear normal. Heart size is normal. Bones and chest wall: No suspicious bony lesions. Overlying soft tissues appear unremarkable. IMPRESSION: Emphysematous changes with bulla in the right lower lobe. No acute abnormality. Reviewed by: Sukhdeep Boucher on 07/03/2023 11:00 AM [facility] Approved by: Sukhdeep Boucher on 07/03/2023 11:00 AM [facility] Station ID: [id number]
[2023-07-03] MEDS ORDERED: FUROSEMIDE 40 MG/4 ML VIAL IVP ONE (12:00)
[2023-07-03] MEDS: LIDOCAINE PATCH 5% TOP SCH (12:34)
[2023-07-03] MEDS: polyethylene glycoL 3350 17 GM PACKET PO SCH (12:41)
--- NOTE | 2023-07-03 14:40 | Ultrasound Report ---
PROCEDURE: Duplex Ext Veins Left INDICATIONS: Left lower leg swelling, r/o DVT TECHNIQUE: Real-time imaging, as well as color and pulse Doppler interrogation, were performed of the lower extr emity deep veins from the inguinal ligament to the popliteal fossa. Attempted visualization of the ca lf veins was performed. COMPARISON: None. FINDINGS: The deep veins are normally compressible, and free of intraluminal thrombus. Color and pu lse Doppler demonstrate normal phasic intraluminal flow. There is normal augmentation response to di stal compression maneuver. No left greater saphenous vein DVT is noted. IMPRESSION: No deep venous thrombosis of the left lower extremity. Reviewed by: Jose Ramirez MD on 07/03/2023 2:39 PM PST Approved by: Jose Ramirez MD on 07/03/2023 2:39 PM PST Station ID: [id number]
--- NOTE | 2023-07-03 16:00 | PROVIDER PROGRESS NOTE ---
Assessment/Plan - Problem List (1) COPD with acute exacerbation Assessment/Plan: (1) COPD with acute exacerbation Assessment/Plan: --Successfully weaned from Optiflow to nasal cannula. -- Continue scheduled DuoNeb and Pulmicort. --Prednisone 40 mg daily for 5 days completed. --His baseline is 2L at rest and 4L with activity. Currently stable on 4L. (2) Pneumonia Assessment/Plan: --Completed 5 days of antibiotics. -- Sputum culture positive for Enterobacter cloacae complex. Ceftriaxone will provide coverage for this organism. (3) Acute kidney injury superimposed on CKD Assessment/Plan: --Renal function is stable. Baseline creatinine near 1.7. (4) Weakness Assessment/Plan: --Pending final PT/OT recommendations. --I anticipate SNF vs . (5) Left leg swelling Assessment/Plan: --Developed left leg and scrotal swelling this morning. --US performed, negative for DVT. --Likely iatrogenic due to IV fluids given over this admission. --He was given a dose of IV lasix today. Pending renal function, can repeat dose tomorrow. - Current Meds Current Meds: Current Medications Generic Name Dose Route Start Last Admin Trade Name Freq PRN Reason Stop Dose Admin Acetaminophen 650 mg 06/26/23 16:32 07/03/23 11:06 Acetaminophen 325 Mg Tablet PO 650 mg Q4HR PRN Administration Pain 1 to 4, or Fever Al Hydroxide/Mg Hydroxide 30 ml 06/27/23 20:03 06/29/23 18:20 Mag Hydrox/Al Hydrox/Simeth 30 Ml Udc PO 30 ml Q8H PRN Administration Heartburn Albuterol/Ipratropium 3 ml 06/26/23 19:00 07/03/23 14:54 Ipratropium/Albuterol 3 Ml Neb INH 3 ml RTQID JOSIAH Administration Budesonide 0.5 mg 06/26/23 19:00 07/03/23 11:15 Budesonide 0.5 Mg/2 Ml Neb INH 0.5 mg RTBID JOSIAH Administration Citalopram Hydrobromide 10 mg 06/27/23 12:00 07/03/23 07:46 Citalopram 10 Mg Tablet PO 10 mg DAILY JOSIAH Administration Enoxaparin Sodium 40 mg 06/29/23 09:00 07/03/23 07:45 Enoxaparin 40 Mg/0.4 Ml Syringe SUBQ 40 mg DAILY JOSIAH Administration Gabapentin 100 mg 06/27/23 14:00 07/03/23 13:33 Gabapentin 100 Mg Capsule PO 100 mg TID JOSIAH Administration Guaifenesin 600 mg 06/26/23 21:00 07/03/23 07:47 Guaifenesin 600 Mg Tablet PO 600 mg BID JOSIAH Administration Ibuprofen 400 mg 06/28/23 14:27 07/01/23 03:59 Ibuprofen 400 Mg Tablet PO 400 mg Q6HR PRN Administration Moderate Pain (Level 4-6) Lactobacillus Rhamnosus 1 cap 06/27/23 09:00 07/03/23 07:46 Lactobacillus Rhamnosus Gg Capsule PO 1 cap DAILY JOSIAH Administration Lidocaine 1 patch 06/28/23 09:00 07/03/23 12:34 Lidocaine Patch 5% TOP Not Given DAILY JOSIAH Lidocaine HCl 5 ml 06/27/23 20:03 06/27/23 20:36 Lidocaine Viscous 2% 15 Ml Oral Syringe MM 5 ml Q8H PRN Administration Heartburn Morphine Sulfate 1 mg 06/26/23 16:32 06/29/23 10:18 Morphine 2 Mg/Ml Carpuject IVP 1 mg Q2HR PRN Administration Dyspnea Multi-Ingredient Mouthwash/Gargle 30 ml 06/27/23 19:50 06/30/23 12:05 Gi Cocktail 120 Ml Bottle PO 30 ml Q8H PRN Administration Heartburn Multivitamins/Minerals 1 tab 06/29/23 08:00 07/03/23 07:46 Multivitamin W/Minerals Tablet PO 1 tab DAILYWM JOSIAH Administration Ondansetron HCl 4 mg 06/26/23 16:32 06/29/23 15:01 Ondansetron 4 Mg/2 Ml Vial IVP 4 mg Q6HR PRN Administration Nausea / Vomiting Oxycodone HCl 5 mg 06/27/23 11:22 07/02/23 13:43 Oxycodone 5 Mg Tablet PO 5 mg Q6H PRN Administration PAIN Pantoprazole Sodium 40 mg 06/29/23 08:00 07/03/23 06:45 Pantoprazole 40 Mg Tablet PO 40 mg QDAC JOSIAH Administration Polyethylene Glycol 17 gm 07/02/23 09:00 07/03/23 12:41 Polyethylene Glycol 3350 17 Gm Packet PO 17 gm DAILY JOSIAH Administration Sodium Chloride 10 ml 06/26/23 17:00 07/03/23 12:38 Sodium Chloride Flush 0.9% 10 Ml Syringe IVP 10 ml 0100,0900,1700 JOSIAH Administration Sodium Chloride 10 ml 06/26/23 16:32 06/29/23 10:23 Sodium Chloride Flush 0.9% 10 Ml Syringe IVP 10 ml PRN PRN Administration NEEDED PER PROVIDER ORDERS Venlafaxine HCl 225 mg 06/28/23 09:00 07/03/23 07:46 Venlafaxine Er 75 Mg Capsule PO 225 mg DAILY JOSIAH Administration - Lab Result Fish Bone Diagrams: 07/02/23 05:24 07/02/23 05:24 Subjective - Subjective Patient Reports: Feeling Better, Resting Comfortably (Left leg swelling. No calf pain. Mild scrotal swelling noted as well. He is diuresing well with lasix. I encouraged ambulation.) Objective Vital Signs: Vital Signs - 24 hr 07/02/23 07/02/23 07/03/23 22:25 23:40 03:32 Temperature 36.4 C L Heart Rate 100 Heart Rate [ 100 Brachial] Respiratory 16 24 Rate Blood Pressure 119/91 H [Right Brachial artery] O2 Saturation 98 If not protocol 4 4 6 : Oxygen Flow, liters/minute 07/03/23 07/03/23 07/03/23 10:00 11:16 14:58 Temperature 36.6 C Heart Rate 95 102 H Heart Rate [ 103 H Brachial] Respiratory 18 20 18 Rate Blood Pressure 118/77 [Right Brachial artery] O2 Saturation 94 If not protocol 2 4 3 : Oxygen Flow, liters/minute Oxygen O2 Source Nasal cannula Oxygen Flow Rate 6 I&O (Last 24 Hrs): Intake and Output Totals x24h 07/01/23 07/02/23 07/03/23 23:59 23:59 23:59 Intake Total 3080.829 2060 920 Output Total 977 859 8114 Balance 2355.829 1360 -385 General: Alert, Oriented x3, Cooperative, No acute distress Neuro: Alert, CN 2-12 Grossly Intact, Oriented Times 3 Cardiovascular: Regular rate, Normal S1, Normal S2, No murmurs Respiratory: Chest non-tender, No respiratory distress, Breath sounds nml Abdomen: Normal bowel sounds, Soft, No tenderness, No hepatospenomegaly, No masses Genitourinary: Other (Mild scrotal swelling.) Extremities: No clubbing, No cyanosis, Normal pulses, No tenderness/swelling, Other (LLE +1 pitting edema.) - Results Results: Laboratory Results WBC 10.1 x10^3/uL (4.8-10.8) 07/02/23 05:24 RBC 3.29 10^6/uL (4.70-6.10) L 07/02/23 05:24 Hgb 9.6 g/dL (14.0-18.0) L 07/02/23 05:24 Hct 31.3 % (42.0-52.0) L 07/02/23 05:24 MCV 95.1 fL (80.0-94.0) H 07/02/23 05:24 MCH 29.2 pg (27.0-31.0) 07/02/23 05:24 MCHC 30.7 g/dL (32.0-36.0) L 07/02/23 05:24 RDW 14.8 % (12.0-15.0) 07/02/23 05:24 Plt Count 168 10^3/uL (130-450) 07/02/23 05:24 MPV 10.2 fL (7.4-11.4) 07/02/23 05:24 Neut # (Auto) 7.6 10^3/uL (1.5-6.6) H 07/02/23 05:24 Lymph # (Auto) 1.2 10^3/uL (1.5-3.5) L 07/02/23 05:24 [place] # (Auto) 0.9 10^3/uL (0.0-1.0) 07/02/23 05:24 Eos # (Auto) 0.2 10^3/uL (0.0-0.7) 07/02/23 05:24 Baso # (Auto) 0.0 10^3/uL (0.0-0.1) 07/02/23 05:24 Absolute Nucleated RBC 0.15 x10^3/uL 07/02/23 05:24 Nucleated RBC % 1.5 /100WBC 07/02/23 05:24 Bld Gas Analysis Time 1903 06/26/23 17:50 Sample Site RIGHT RADIAL 06/26/23 17:50 ABG pH 7.42 (7.35-7.45) 06/26/23 17:50 ABG pCO2 38 mmHg (34-45) 06/26/23 17:50 ABG pO2 86 mmHg (80-100) 06/26/23 17:50 ABG HCO3 23.8 mmol/L (22.0-26.0) 06/26/23 17:50 ABG Total CO2 25.0 MMOL/L (21.0-29.0) 06/26/23 17:50 ABG O2 Saturation 96 % (94-98) 06/26/23 17:50 ABG Base Excess -0.4 mmol/L (-2.0-3.0) 06/26/23 17:50 Tarun Test POSITIVE 06/26/23 17:50 VBG pH 7.403 (7.31-7.41) 06/28/23 04:37 Ionized Calcium 1.11 mmol/L (1.15-1.33) L 06/28/23 04:37 O2 Liters/Min 30.00 LPM 06/26/23 17:50 FiO2 33.00 06/26/23 17:50 Sodium 140 mmol/L (135-145) 07/02/23 05:24 Potassium 4.6 mmol/L (3.5-4.5) H 07/02/23 05:24 Chloride 107 mmol/L (101-111) 07/02/23 05:24 Carbon Dioxide 25 mmol/L (21-32) 07/02/23 05:24 Anion Gap 8.0 (6-13) 07/02/23 05:24 BUN 62 mg/dL (6-20) H 07/02/23 05:24 Creatinine 1.8 mg/dL (0.6-1.3) H 07/02/23 05:24 Estimated GFR (MDRD) 38 (>89) L 07/02/23 05:24 Glucose 97 mg/dL (74-104) 07/02/23 05:24 POC Whole Bld Glucose 126 mg/dL (70 - 100) H 06/29/23 21:19 Calcium 8.5 mg/dL (8.5-10.3) 07/02/23 05:24 Phosphorus 4.8 mg/dL (2.5-5.0) 06/28/23 04:37 Magnesium 2.5 mg/dL (1.7-2.3) H 06/28/23 04:37 Total Bilirubin 0.5 mg/dL (0.2-1.0) 06/26/23 15:18 AST 27 IU/L (10-42) 06/26/23 15:18 ALT 48 IU/L (10-60) 06/26/23 15:18 Alkaline Phosphatase 71 IU/L (42-121) 06/26/23 15:18 Troponin I High Sens 51.8 ng/L (2.3-19.7) H* 06/26/23 18:16 Total Protein 6.9 g/dL (6.4-8.9) 06/26/23 15:18 Albumin 4.0 g/dL (3.2-5.5) 06/26/23 15:18 Globulin 2.9 g/dL (2.1-4.2) 06/26/23 15:18 Albumin/Globulin Ratio 1.4 (1.0-2.2) 06/26/23 15:18 Lipase 13 U/L (11-82) 06/26/23 15:18 TSH 1.09 uIU/mL (0.34-5.60) 06/27/23 04:13 Nasal Adenovirus (PCR) NOT DETECTED 06/26/23 15:08 Nasal B. parapertussis DNA (PCR) NOT DETECTED 06/26/23 15:08 Nasal Coronavir 229E PCR NOT DETECTED 06/26/23 15:08 Nasal Coronavir HKU1 PCR NOT DETECTED 06/26/23 15:08 Nasal Coronavir NL63 PCR NOT DETECTED 06/26/23 15:08 Nasal Coronavir OC43 PCR NOT DETECTED 06/26/23 15:08 Nasal Enterovir/Rhinovir PCR NOT DETECTED 06/26/23 15:08 Nasal Influenza B PCR NOT DETECTED 06/26/23 15:08 Nasal Influenza A PCR NOT DETECTED 06/26/23 15:08 Nasal Parainfluen 1 PCR NOT DETECTED 06/26/23 15:08 Nasal Parainfluen 2 PCR NOT DETECTED 06/26/23 15:08 Nasal Parainfluen 3 PCR NOT DETECTED 06/26/23 15:08 Nasal Parainfluen 4 PCR NOT DETECTED 06/26/23 15:08 Nasal RSV (PCR) NOT DETECTED 06/26/23 15:08 Nasal Screen MRSA (PCR) NEGATIVE (NEGATIVE) 06/26/23 17:30 Nasal B.pertussis DNA PCR NOT DETECTED 06/26/23 15:08 Nasal C.pneumoniae (PCR) NOT DETECTED 06/26/23 15:08 [place] Human Metapneumo PCR NOT DETECTED 06/26/23 15:08 Nasal M.pneumoniae (PCR) NOT DETECTED 06/26/23 15:08 Nasal SARS-CoV-2 (PCR) NOT DETECTED 06/26/23 15:08 - Procedures Procedures: Procedures COLONOSCOPY (01/21/14) DRAINAGE OF R PLEURAL CAV WITH DRAIN DEV, PERC APPROACH (11/06/15) REMOVAL OF DRAIN DEV FROM R PLEURAL CAV, CROP SPECIALIST APPROACH (11/06/15) Sepsis Event Note (H) - Evaluation Current Stage of Sepsis: Ruled out Possible source of Sepsis: positive: Pulmonary - Sepsis Criteria Sepsis Criteria: Recorded Heart Rate greater than 90 bpm, Recorded Respiratory Rate greater than 20 ABX Reporting Has patient been on IV antibiotics over the past 48 hours?: No Current Medications - Current Medications Current Medications: Active Medications Generic Name Dose Route Start Last Admin Trade Name Freq PRN Reason Stop Dose Admin Acetaminophen 650 mg 06/26/23 16:32 07/03/23 11:06 Acetaminophen 325 Mg Tablet PO 650 mg Q4HR PRN Administration Pain 1 to 4, or Fever Al Hydroxide/Mg Hydroxide 30 ml 06/27/23 20:03 06/29/23 18:20 Mag Hydrox/Al Hydrox/Simeth 30 Ml Udc PO 30 ml Q8H PRN Administration Heartburn Albuterol/Ipratropium 3 ml 06/26/23 16:44 Ipratropium/Albuterol 3 Ml Neb INH Q4HR PRN Wheezing Albuterol/Ipratropium 3 ml 06/26/23 19:00 07/03/23 14:54 Ipratropium/Albuterol 3 Ml Neb INH 3 ml RTQID JOSIAH Administration Budesonide 0.5 mg 06/26/23 19:00 07/03/23 11:15 Budesonide 0.5 Mg/2 Ml Neb INH 0.5 mg RTBID JOSIAH Administration Citalopram Hydrobromide 10 mg 06/27/23 12:00 07/03/23 07:46 Citalopram 10 Mg Tablet PO 10 mg DAILY JOSIAH Administration Diclofenac Sodium 2 gm 07/01/23 09:12 Diclofenac Sodium 1% Gel 50 Gm Tube TOP QID PRN Mild Pain (Level 1-3) Enoxaparin Sodium 40 mg 06/29/23 09:00 07/03/23 07:45 Enoxaparin 40 Mg/0.4 Ml Syringe SUBQ 40 mg DAILY JOSIAH Administration Gabapentin 100 mg 06/27/23 14:00 07/03/23 13:33 Gabapentin 100 Mg Capsule PO 100 mg TID JOSIAH Administration Guaifenesin 600 mg 06/26/23 21:00 07/03/23 07:47 Guaifenesin 600 Mg Tablet PO 600 mg BID JOSIAH Administration Ibuprofen 400 mg 06/28/23 14:27 07/01/23 03:59 Ibuprofen 400 Mg Tablet PO 400 mg Q6HR PRN Administration Moderate Pain (Level 4-6) Lactobacillus Rhamnosus 1 cap 06/27/23 09:00 07/03/23 07:46 Lactobacillus Rhamnosus Gg Capsule PO 1 cap DAILY JOSIAH Administration Lidocaine 1 patch 06/28/23 09:00 07/03/23 12:34 Lidocaine Patch 5% TOP Not Given DAILY [facility] Lidocaine HCl 5 ml 06/27/23 20:03 06/27/23 20:36 Lidocaine Viscous 2% 15 Ml Oral Syringe MM 5 ml Q8H PRN Administration Heartburn Morphine Sulfate 1 mg 06/26/23 16:32 06/29/23 10:18 Morphine 2 Mg/Ml Carpuject IVP 1 mg Q2HR PRN Administration Dyspnea Multi-Ingredient Mouthwash/Gargle 30 ml 06/27/23 19:50 06/30/23 12:05 Gi Cocktail 120 Ml Bottle PO 30 ml Q8H PRN Administration Heartburn Multivitamins/Minerals 1 tab 06/29/23 08:00 07/03/23 07:46 Multivitamin W/Minerals Tablet PO 1 tab DAILYWM JOSIAH Administration Ondansetron HCl 4 mg 06/26/23 16:32 06/29/23 15:01 Ondansetron 4 Mg/2 Ml Vial IVP 4 mg Q6HR PRN Administration Nausea / Vomiting Oxycodone HCl 5 mg 06/27/23 11:22 07/02/23 13:43 Oxycodone 5 Mg Tablet PO 5 mg Q6H PRN Administration PAIN Pantoprazole Sodium 40 mg 06/29/23 08:00 07/03/23 06:45 Pantoprazole 40 Mg Tablet PO 40 mg QDAC JOSIAH Administration Polyethylene Glycol 17 gm 07/02/23 09:00 07/03/23 12:41 Polyethylene Glycol 3350 17 Gm Packet PO 17 gm DAILY JOSIAH Administration Sodium Chloride 10 ml 06/26/23 17:00 07/03/23 12:38 Sodium Chloride Flush 0.9% 10 Ml Syringe IVP 10 ml 0100,0900,1700 JOSIAH Administration Sodium Chloride 10 ml 06/26/23 16:32 06/29/23 10:23 Sodium Chloride Flush 0.9% 10 Ml Syringe IVP 10 ml PRN PRN Administration NEEDED PER PROVIDER ORDERS Venlafaxine HCl 225 mg 06/28/23 09:00 07/03/23 07:46 Venlafaxine Er 75 Mg Capsule PO 225 mg DAILY JOSIAH Administration Albuterol 2.5 mg INH Q4H PRN 04/24/22 Citalopram [CeleXA] 10 mg PO DAILY 04/24/22 Fluticasone/Salmeterol [Advair Hfa 115-21 Mcg Inhaler] 2 puffs PO BID 06/27/23 Ipratropium [Atrovent] 2 puffs PO BID 06/27/23 Ipratropium/Albuterol [Duoneb] 3 ml INH Q4H PRN 06/27/23 Venlafaxine ER [Effexor ER] 225 mg PO DAILY 06/27/23
[2023-07-03] MEDS: oxyCODONE 5 MG TABLET PO PRN (21:04)
[2023-07-04] MEDS: SODIUM CHLORIDE FLUSH 0.9% 10 ML SYRINGE IVP SCH ×3 (01:00→21:32)
[2023-07-04] MEDS: IPRATROPIUM/ALBUTEROL 3 ML NEB INH SCH ×4 (06:49→17:42)
[2023-07-04] MEDS: BUDESONIDE 0.5 MG/2 ML NEB INH SCH ×2 (06:49→17:42)
[2023-07-04] MEDS: ACETAMINOPHEN 325 MG TABLET PO PRN ×2 (06:57→21:28)
[2023-07-04] MEDS: PANTOPRAZOLE 40 MG TABLET PO SCH (06:58)
[2023-07-04] MEDS: GABAPENTIN 100 MG CAPSULE PO SCH ×3 (06:58→21:28)
[2023-07-04] MEDS: LACTOBACILLUS RHAMNOSUS GG CAPSULE PO SCH (08:51)
[2023-07-04] MEDS: CITALOPRAM 10 MG TABLET PO SCH (08:51)
[2023-07-04] MEDS: guaiFENesin 600 MG TABLET PO SCH ×2 (08:51→21:28)
[2023-07-04] MEDS: VENLAFAXINE ER 75 MG CAPSULE PO SCH (08:51)
[2023-07-04] MEDS: MULTIVITAMIN W/MINERALS TABLET PO SCH (08:51)
[2023-07-04] MEDS: ENOXAPARIN 40 MG/0.4 ML SYRINGE SUBQ SCH (08:52)
[2023-07-04] MEDS: polyethylene glycoL 3350 17 GM PACKET PO SCH (08:55)
[2023-07-04] MEDS: LIDOCAINE PATCH 5% TOP SCH (08:59)
--- NOTE | 2023-07-04 18:14 | PROVIDER PROGRESS NOTE ---
Assessment/Plan - Problem List (1) COPD with acute exacerbation Assessment/Plan: Successfully weaned from Optiflow to nasal cannula. Has moved out of ICU. Prednisone 40 mg daily for 5 days completed. Plan: Continue scheduled DuoNeb and Pulmicort, Montelukast, prn expectorants His baseline is 2L at rest and 4L with activity. Currently stable on 4L continuously. Will plan to do an oximetry walk test on the day of discharge (2) Weakness Assessment/Plan: Plan: Pending final PT/OT recommendations. I anticipate SNF vs . (3) Left leg swelling Assessment/Plan: He developed left leg and scrotal swelling yesterday 07/03 in morning. US performed, negative for DVT. Likely iatrogenic due to IV fluids given over this admission. He was given a dose of IV lasix x1 yesterday. (4) Pneumonia Assessment/Plan: Resolved Sputum culture positive for Enterobacter cloacae complex. Ceftriaxone provided coverage for this organism. Completed 5 days of antibiotics. (5) Acute kidney injury superimposed on CKD Assessment/Plan: Renal function is stable. Baseline creatinine near 1.7. - Current Meds Current Meds: Current Medications Generic Name Dose Route Start Last Admin Trade Name Freq PRN Reason Stop Dose Admin Acetaminophen 650 mg 06/26/23 16:32 07/04/23 06:57 Acetaminophen 325 Mg Tablet PO 650 mg Q4HR PRN Administration Pain 1 to 4, or Fever Al Hydroxide/Mg Hydroxide 30 ml 06/27/23 20:03 06/29/23 18:20 Mag Hydrox/Al Hydrox/Simeth 30 Ml Udc PO 30 ml Q8H PRN Administration Heartburn Albuterol/Ipratropium 3 ml 06/26/23 19:00 07/04/23 17:42 Ipratropium/Albuterol 3 Ml Neb INH 3 ml RTQID JOSIAH Administration Budesonide 0.5 mg 06/26/23 19:00 07/04/23 17:42 Budesonide 0.5 Mg/2 Ml Neb INH 0.5 mg RTBID JOSAIH Administration Citalopram Hydrobromide 10 mg 06/27/23 12:00 07/04/23 08:51 Citalopram 10 Mg Tablet PO 10 mg DAILY JOSIAH Administration Enoxaparin Sodium 40 mg 06/29/23 09:00 07/04/23 08:52 Enoxaparin 40 Mg/0.4 Ml Syringe SUBQ 40 mg DAILY JOSIAH Administration Gabapentin 100 mg 06/27/23 14:00 07/04/23 15:49 Gabapentin 100 Mg Capsule PO Not Given TID JOSIAH Guaifenesin 600 mg 06/26/23 21:00 07/04/23 08:51 Guaifenesin 600 Mg Tablet PO 600 mg BID JOSIAH Administration Ibuprofen 400 mg 06/28/23 14:27 07/01/23 03:59 Ibuprofen 400 Mg Tablet PO 400 mg Q6HR PRN Administration Moderate Pain (Level 4-6) Lactobacillus Rhamnosus 1 cap 06/27/23 09:00 07/04/23 08:51 Lactobacillus Rhamnosus Gg Capsule PO 1 cap DAILY JOSIAH Administration Lidocaine 1 patch 06/28/23 09:00 07/04/23 08:59 Lidocaine Patch 5% TOP Not Given DAILY JOSIAH Lidocaine HCl 5 ml 06/27/23 20:03 06/27/23 20:36 Lidocaine Viscous 2% 15 Ml Oral Syringe MM 5 ml Q8H PRN Administration Heartburn Morphine Sulfate 1 mg 06/26/23 16:32 06/29/23 10:18 Morphine 2 Mg/Ml Carpuject IVP 1 mg Q2HR PRN Administration Dyspnea Multi-Ingredient Mouthwash/Gargle 30 ml 06/27/23 19:50 06/30/23 12:05 Gi Cocktail 120 Ml Bottle PO 30 ml Q8H PRN Administration Heartburn Multivitamins/Minerals 1 tab 06/29/23 08:00 07/04/23 08:51 Multivitamin W/Minerals Tablet PO 1 tab DAILYWM JOSIAH Administration Ondansetron HCl 4 mg 06/26/23 16:32 06/29/23 15:01 Ondansetron 4 Mg/2 Ml Vial IVP 4 mg Q6HR PRN Administration Nausea / Vomiting Oxycodone HCl 5 mg 06/27/23 11:22 07/03/23 21:04 Oxycodone 5 Mg Tablet PO 5 mg Q6H PRN Administration PAIN Pantoprazole Sodium 40 mg 06/29/23 08:00 07/04/23 06:58 Pantoprazole 40 Mg Tablet PO 40 mg QDAC JOSIAH Administration Polyethylene Glycol 17 gm 07/02/23 09:00 07/04/23 08:55 Polyethylene Glycol 3350 17 Gm Packet PO 17 gm DAILY JOSIAH Administration Sodium Chloride 10 ml 06/26/23 17:00 07/04/23 08:57 Sodium Chloride Flush 0.9% 10 Ml Syringe IVP 10 ml 0100,0900,1700 JOSIAH Administration Sodium Chloride 10 ml 06/26/23 16:32 06/29/23 10:23 Sodium Chloride Flush 0.9% 10 Ml Syringe IVP 10 ml PRN PRN Administration NEEDED PER PROVIDER ORDERS Venlafaxine HCl 225 mg 06/28/23 09:00 07/04/23 08:51 Venlafaxine Er 75 Mg Capsule PO 225 mg DAILY JOSIAH Administration - Lab Result Fish Bone Diagrams: 07/02/23 05:24 07/02/23 05:24 - Additional Planning My Orders: My Active Orders 07/04/23 12:24 Echo Transthoracic Complete [ECHO] Routine Subjective - Subjective Patient Reports: Feeling Better Objective Vital Signs: Vital Signs - 24 hr 07/04/23 07/04/23 07/04/23 00:57 06:52 08:41 Temperature 36.4 C L 36.6 C Heart Rate 103 H Heart Rate [ 102 H Brachial] Heart Rate [ 57 L Monitoring electrodes] Respiratory 20 16 20 Rate Blood Pressure 134/85 H 118/80 [Right Brachial artery] O2 Saturation 94 94 If not protocol 3 3 3 : Oxygen Flow, liters/minute 07/04/23 07/04/23 07/04/23 11:36 15:47 15:48 Temperature 36.7 C Heart Rate 69 79 Heart Rate [ 111 H Brachial] Heart Rate [ Monitoring electrodes] Respiratory 19 19 20 Rate Blood Pressure 133/94 H [Right Brachial artery] O2 Saturation 99 If not protocol 4 2 4 : Oxygen Flow, liters/minute 07/04/23 17:44 Temperature Heart Rate 79 Heart Rate [ Brachial] Heart Rate [ Monitoring electrodes] Respiratory 19 Rate Blood Pressure [Right Brachial artery] O2 Saturation If not protocol 4 : Oxygen Flow, liters/minute Oxygen O2 Source Nasal cannula Oxygen Flow Rate 6 I&O (Last 24 Hrs): Intake and Output Totals x24h 07/02/23 07/03/23 07/04/23 23:59 23:59 23:59 Intake Total 2060 1394 1580 Output Total 700 3005 1050 Balance 1360 -1611 530 General: Other (Thin male) HEENT: Mucous membr. moist/pink Neck: Supple Neuro: Alert, Non Focal Cardiovascular: Regular rate Respiratory: Other (Poor air mvm) Abdomen: Normal bowel sounds, No tenderness Extremities: No clubbing, No edema, No tenderness/swelling - Results Results: Laboratory Results WBC 10.1 x10^3/uL (4.8-10.8) 07/02/23 05:24 RBC 3.29 10^6/uL (4.70-6.10) L 07/02/23 05:24 Hgb 9.6 g/dL (14.0-18.0) L 07/02/23 05:24 Hct 31.3 % (42.0-52.0) L 07/02/23 05:24 MCV 95.1 fL (80.0-94.0) H 07/02/23 05:24 MCH 29.2 pg (27.0-31.0) 07/02/23 05:24 MCHC 30.7 g/dL (32.0-36.0) L 07/02/23 05:24 RDW 14.8 % (12.0-15.0) 07/02/23 05:24 Plt Count 168 10^3/uL (130-450) 07/02/23 05:24 MPV 10.2 fL (7.4-11.4) 07/02/23 05:24 Neut # (Auto) 7.6 10^3/uL (1.5-6.6) H 07/02/23 05:24 Lymph # (Auto) 1.2 10^3/uL (1.5-3.5) L 07/02/23 05:24 [place] # (Auto) 0.9 10^3/uL (0.0-1.0) 07/02/23 05:24 Eos # (Auto) 0.2 10^3/uL (0.0-0.7) 07/02/23 05:24 Baso # (Auto) 0.0 10^3/uL (0.0-0.1) 07/02/23 05:24 Absolute Nucleated RBC 0.15 x10^3/uL 07/02/23 05:24 Nucleated RBC % 1.5 /100WBC 07/02/23 05:24 Bld Gas Analysis Time 1903 06/26/23 17:50 Sample Site RIGHT RADIAL 06/26/23 17:50 ABG pH 7.42 (7.35-7.45) 06/26/23 17:50 ABG pCO2 38 mmHg (34-45) 06/26/23 17:50 ABG pO2 86 mmHg (80-100) 06/26/23 17:50 ABG HCO3 23.8 mmol/L (22.0-26.0) 06/26/23 17:50 ABG Total CO2 25.0 MMOL/L (21.0-29.0) 06/26/23 17:50 ABG O2 Saturation 96 % (94-98) 06/26/23 17:50 ABG Base Excess -0.4 mmol/L (-2.0-3.0) 06/26/23 17:50 Tarun Test POSITIVE 06/26/23 17:50 VBG pH 7.403 (7.31-7.41) 06/28/23 04:37 Ionized Calcium 1.11 mmol/L (1.15-1.33) L 06/28/23 04:37 O2 Liters/Min 30.00 LPM 06/26/23 17:50 FiO2 33.00 06/26/23 17:50 Sodium 140 mmol/L (135-145) 07/02/23 05:24 Potassium 4.6 mmol/L (3.5-4.5) H 07/02/23 05:24 Chloride 107 mmol/L (101-111) 07/02/23 05:24 Carbon Dioxide 25 mmol/L (21-32) 07/02/23 05:24 Anion Gap 8.0 (6-13) 07/02/23 05:24 BUN 62 mg/dL (6-20) H 07/02/23 05:24 Creatinine 1.8 mg/dL (0.6-1.3) H 07/02/23 05:24 Estimated GFR (MDRD) 38 (>89) L 07/02/23 05:24 Glucose 97 mg/dL (74-104) 07/02/23 05:24 POC Whole Bld Glucose 126 mg/dL (70 - 100) H 06/29/23 21:19 Calcium 8.5 mg/dL (8.5-10.3) 07/02/23 05:24 Phosphorus 4.8 mg/dL (2.5-5.0) 06/28/23 04:37 Magnesium 2.5 mg/dL (1.7-2.3) H 06/28/23 04:37 Total Bilirubin 0.5 mg/dL (0.2-1.0) 06/26/23 15:18 AST 27 IU/L (10-42) 06/26/23 15:18 ALT 48 IU/L (10-60) 06/26/23 15:18 Alkaline Phosphatase 71 IU/L (42-121) 06/26/23 15:18 Troponin I High Sens 51.8 ng/L (2.3-19.7) H* 06/26/23 18:16 Total Protein 6.9 g/dL (6.4-8.9) 06/26/23 15:18 Albumin 4.0 g/dL (3.2-5.5) 06/26/23 15:18 Globulin 2.9 g/dL (2.1-4.2) 06/26/23 15:18 Albumin/Globulin Ratio 1.4 (1.0-2.2) 06/26/23 15:18 Lipase 13 U/L (11-82) 06/26/23 15:18 TSH 1.09 uIU/mL (0.34-5.60) 06/27/23 04:13 Nasal Adenovirus (PCR) NOT DETECTED 06/26/23 15:08 Nasal B. parapertussis DNA (PCR) NOT DETECTED 06/26/23 15:08 Nasal Coronavir 229E PCR NOT DETECTED 06/26/23 15:08 Nasal Coronavir HKU1 PCR NOT DETECTED 06/26/23 15:08 Nasal Coronavir NL63 PCR NOT DETECTED 06/26/23 15:08 Nasal Coronavir OC43 PCR NOT DETECTED 06/26/23 15:08 Nasal Enterovir/Rhinovir PCR NOT DETECTED 06/26/23 15:08 Nasal Influenza B PCR NOT DETECTED 06/26/23 15:08 Nasal Influenza A PCR NOT DETECTED 06/26/23 15:08 Nasal Parainfluen 1 PCR NOT DETECTED 06/26/23 15:08 Nasal Parainfluen 2 PCR NOT DETECTED 06/26/23 15:08 Nasal Parainfluen 3 PCR NOT DETECTED 06/26/23 15:08 Nasal Parainfluen 4 PCR NOT DETECTED 06/26/23 15:08 Nasal RSV (PCR) NOT DETECTED 06/26/23 15:08 Nasal Screen MRSA (PCR) NEGATIVE (NEGATIVE) 06/26/23 17:30 Nasal B.pertussis DNA PCR NOT DETECTED 06/26/23 15:08 Nasal C.pneumoniae (PCR) NOT DETECTED 06/26/23 15:08 Cristofer Human Metapneumo PCR NOT DETECTED 06/26/23 15:08 Nasal M.pneumoniae (PCR) NOT DETECTED 06/26/23 15:08 Nasal SARS-CoV-2 (PCR) NOT DETECTED 06/26/23 15:08 - Procedures Procedures: Procedures COLONOSCOPY (01/21/14) DRAINAGE OF R PLEURAL CAV WITH DRAIN DEV, PERC APPROACH (11/06/15) REMOVAL OF DRAIN DEV FROM R PLEURAL CAV, 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
[2023-07-04] MEDS: oxyCODONE 5 MG TABLET PO PRN (21:28)
[2023-07-05] MEDS: SODIUM CHLORIDE FLUSH 0.9% 10 ML SYRINGE IVP SCH ×3 (01:09→16:14)
[2023-07-05 04:46] LABS: BASOPHILS % (AUTO) 0.1 %; EOSINOPHILS # (AUTO) 0.3 10^3/uL (0.0-0.7); EOSINOPHILS % (AUTO) 3.2 %; HCT - HEMATOCRIT 31.1 % (42.0-52.0); HGB - HEMOGLOBIN 9.4 g/dL (14.0-18.0); LYMPHOCYTES # (AUTO) 1.3 10^3/uL (1.5-3.5); LYMPHOCYTES % (AUTO) 15.8 %; MEAN CORPUSCULAR HEMOGLOBIN 29.2 pg (27.0-31.0); MEAN CORPUSCULAR HGB CONC 30.2 g/dL (32.0-36.0); MEAN CORPUSCULAR VOLUME 96.6 fL (80.0-94.0); MEAN PLATELET VOLUME 9.7 fL (7.4-11.4); MONOCYTES # (AUTO) 0.9 10^3/uL (0.0-1.0); MONOCYTES % (AUTO) 11.9 %; NEUTROPHILS # (AUTO) 5.4 10^3/uL (1.5-6.6); NEUTROPHILS % (AUTO) 68.4 %; PLT - PLATELET COUNT 161 10^3/uL (130-450); RED BLOOD COUNT 3.22 10^6/uL (4.70-6.10); RED CELL DISTRIBUTION WIDTH 16.5 % (12.0-15.0); WHITE BLOOD COUNT 7.9 x10^3/uL (4.8-10.8)
[2023-07-05 05:05] LABS: CALCIUM 8.4 mg/dL (8.5-10.3); CREATININE 1.2 mg/dL (0.6-1.3); POTASSIUM 4.1 mmol/L (3.5-4.5)
[2023-07-05] MEDS: GABAPENTIN 100 MG CAPSULE PO SCH ×3 (06:18→21:37)
[2023-07-05] MEDS: ACETAMINOPHEN 325 MG TABLET PO PRN (06:18)
[2023-07-05] MEDS: PANTOPRAZOLE 40 MG TABLET PO SCH (06:18)
[2023-07-05] MEDS: IPRATROPIUM/ALBUTEROL 3 ML NEB INH SCH ×4 (06:55→21:00)
[2023-07-05] MEDS: BUDESONIDE 0.5 MG/2 ML NEB INH SCH ×2 (06:55→21:00)
[2023-07-05] MEDS: VENLAFAXINE ER 75 MG CAPSULE PO SCH (08:40)
[2023-07-05] MEDS: CITALOPRAM 10 MG TABLET PO SCH (08:40)
[2023-07-05] MEDS: MULTIVITAMIN W/MINERALS TABLET PO SCH (08:40)
[2023-07-05] MEDS: LACTOBACILLUS RHAMNOSUS GG CAPSULE PO SCH (08:40)
[2023-07-05] MEDS: ENOXAPARIN 40 MG/0.4 ML SYRINGE SUBQ SCH (08:40)
[2023-07-05] MEDS: guaiFENesin 600 MG TABLET PO SCH ×2 (08:40→21:37)
[2023-07-05] MEDS: LIDOCAINE PATCH 5% TOP SCH (08:40)
[2023-07-05] MEDS: polyethylene glycoL 3350 17 GM PACKET PO SCH (08:40)
[2023-07-05] MEDS: MORPHINE 2 MG/ML CARPUJECT IVP PRN ×2 (11:23→21:43)
--- NOTE | 2023-07-05 13:34 | PROVIDER PROGRESS NOTE ---
Assessment/Plan - Problem List (1) COPD with acute exacerbation Assessment/Plan: Successfully weaned from Optiflow to nasal cannula. Has moved out of ICU. Prednisone 40 mg daily for 5 days completed. Plan: Continue scheduled DuoNeb and Pulmicort, Montelukast, prn expectorants His baseline is 2L at rest and 4L with activity. Currently stable on 4L continuously. Will plan to do an oximetry walk test on the day of discharge (2) Scrotal swelling Assessment/Plan: This is likely from volume overload while here plus I suspect cor pulmonale Plan: Give Lasix 20 mg iv x1 Depending on resolution by tomorrow, he may need po Lasix to use after discharge (3) Left leg swelling Assessment/Plan: He developed left leg and scrotal swelling 07/03 in morning. US performed, negative for DVT. Likely iatrogenic due to IV fluids given over this admission, plus I suspect he has cor pulmonale He was given a dose of IV lasix x1. (4) Weakness Assessment/Plan: Improved. He has been able to be independent since today, and the final PT/OT recommendations are to discharge pt home. Anticipate discharge tomorrow (5) Pneumonia Assessment/Plan: Resolved Sputum culture positive for Enterobacter cloacae complex. Ceftriaxone provided coverage for this organism. Completed 5 days of antibiotics. (6) Acute kidney injury superimposed on CKD Assessment/Plan: Renal function is stable. Baseline creatinine near 1.7. - Current Meds Current Meds: Current Medications Generic Name Dose Route Start Last Admin Trade Name Freq PRN Reason Stop Dose Admin Acetaminophen 650 mg 06/26/23 16:32 07/05/23 06:18 Acetaminophen 325 Mg Tablet PO 650 mg Q4HR PRN Administration Pain 1 to 4, or Fever Al Hydroxide/Mg Hydroxide 30 ml 06/27/23 20:03 06/29/23 18:20 Mag Hydrox/Al Hydrox/Simeth 30 Ml Udc PO 30 ml Q8H PRN Administration Heartburn Albuterol/Ipratropium 3 ml 06/26/23 19:00 07/05/23 11:20 Ipratropium/Albuterol 3 Ml Neb INH 3 ml RTQID JOSIAH Administration Budesonide 0.5 mg 06/26/23 19:00 07/05/23 06:55 Budesonide 0.5 Mg/2 Ml Neb INH 0.5 mg RTBID JOSIAH Administration Citalopram Hydrobromide 10 mg 06/27/23 12:00 07/05/23 08:40 Citalopram 10 Mg Tablet PO 10 mg DAILY JOSIAH Administration Enoxaparin Sodium 40 mg 06/29/23 09:00 07/05/23 08:40 Enoxaparin 40 Mg/0.4 Ml Syringe SUBQ 40 mg DAILY JOSIAH Administration Gabapentin 100 mg 06/27/23 14:00 07/05/23 06:18 Gabapentin 100 Mg Capsule PO 100 mg TID JOSIAH Administration Guaifenesin 600 mg 06/26/23 21:00 07/05/23 08:40 Guaifenesin 600 Mg Tablet PO 600 mg BID JOSIAH Administration Ibuprofen 400 mg 06/28/23 14:27 07/01/23 03:59 Ibuprofen 400 Mg Tablet PO 400 mg Q6HR PRN Administration Moderate Pain (Level 4-6) Lactobacillus Rhamnosus 1 cap 06/27/23 09:00 07/05/23 08:40 Lactobacillus Rhamnosus Gg Capsule PO 1 cap DAILY [facility] Administration Lidocaine 1 patch 06/28/23 09:00 07/05/23 08:40 Lidocaine Patch 5% TOP Not Given DAILY JOSIAH Lidocaine HCl 5 ml 06/27/23 20:03 06/27/23 20:36 Lidocaine Viscous 2% 15 Ml Oral Syringe MM 5 ml Q8H PRN Administration Heartburn Morphine Sulfate 1 mg 06/26/23 16:32 07/05/23 11:23 Morphine 2 Mg/Ml Carpuject IVP 1 mg Q2HR PRN Administration Dyspnea Multi-Ingredient Mouthwash/Gargle 30 ml 06/27/23 19:50 06/30/23 12:05 Gi Cocktail 120 Ml Bottle PO 30 ml Q8H PRN Administration Heartburn Multivitamins/Minerals 1 tab 06/29/23 08:00 07/05/23 08:40 Multivitamin W/Minerals Tablet PO 1 tab DAILYWM [facility] Administration Ondansetron HCl 4 mg 06/26/23 16:32 06/29/23 15:01 Ondansetron 4 Mg/2 Ml Vial IVP 4 mg Q6HR PRN Administration Nausea / Vomiting Oxycodone HCl 5 mg 06/27/23 11:22 07/04/23 21:28 Oxycodone 5 Mg Tablet PO 5 mg Q6H PRN Administration PAIN Pantoprazole Sodium 40 mg 06/29/23 08:00 07/05/23 06:18 Pantoprazole 40 Mg Tablet PO 40 mg QDAC JOSIAH Administration Polyethylene Glycol 17 gm 07/02/23 09:00 07/05/23 08:40 Polyethylene Glycol 3350 17 Gm Packet PO Not Given DAILY JOSIAH Sodium Chloride 10 ml 06/26/23 17:00 07/05/23 08:41 Sodium Chloride Flush 0.9% 10 Ml Syringe IVP 10 ml 0100,0900,1700 JOSIAH Administration Sodium Chloride 10 ml 06/26/23 16:32 06/29/23 10:23 Sodium Chloride Flush 0.9% 10 Ml Syringe IVP 10 ml PRN PRN Administration NEEDED PER PROVIDER ORDERS Venlafaxine HCl 225 mg 06/28/23 09:00 07/05/23 08:40 Venlafaxine Er 75 Mg Capsule PO 225 mg DAILY JOSIAH Administration - Lab Result Fish Bone Diagrams: 07/05/23 04:38 07/05/23 04:38 - Additional Planning My Orders: My Active Orders 07/05/23 11:00 Echo Transthoracic Complete [ECHO] Routine Subjective - Subjective Patient Reports: Shortness of Breath (Musch better than at admission), Other (c/o scrotal selling) Objective Vital Signs: Vital Signs - 24 hr 07/04/23 07/04/23 07/04/23 15:47 15:48 17:44 Temperature 36.7 C Heart Rate 79 79 Heart Rate [ 111 H Brachial] Respiratory 19 20 19 Rate Blood Pressure 133/94 H [Right Brachial artery] O2 Saturation 99 If not protocol 2 4 4 : Oxygen Flow, liters/minute 07/05/23 07/05/23 07/05/23 01:20 07:08 07:42 Temperature 36.6 C Heart Rate 90 Heart Rate [ 111 H 108 H Brachial] Respiratory 20 21 20 Rate Blood Pressure 121/98 H 118/68 [Right Brachial artery] O2 Saturation 94 90 L If not protocol 4 3 3 : Oxygen Flow, liters/minute 07/05/23 11:20 Temperature Heart Rate 98 Heart Rate [ Brachial] Respiratory 22 Rate Blood Pressure [Right Brachial artery] O2 Saturation If not protocol : Oxygen Flow, liters/minute Oxygen O2 Source Nasal cannula Oxygen Flow Rate 6 I&O (Last 24 Hrs): Intake and Output Totals x24h 07/03/23 07/04/23 07/05/23 23:59 23:59 23:59 Intake Total 1394 2130 950 Output Total 3005 1050 475 Balance -1611 1080 475 General: Alert, Oriented x3, Other (Thin male, appears older than age) HEENT: EOMI, Other (Long hair and long arrieta) Neck: Supple Neuro: Alert, Non Focal Cardiovascular: Regular rate Respiratory: No respiratory distress, Breath sounds nml Abdomen: Normal bowel sounds, Soft Genitourinary: Other (Minimal scrotalswelling) Extremities: No clubbing, Other (1+ edema to mid-shins, L>R) - Results Results: Laboratory Results WBC 7.9 x10^3/uL (4.8-10.8) 07/05/23 04:38 RBC 3.22 10^6/uL (4.70-6.10) L 07/05/23 04:38 Hgb 9.4 g/dL (14.0-18.0) L 07/05/23 04:38 Hct 31.1 % (42.0-52.0) L 07/05/23 04:38 MCV 96.6 fL (80.0-94.0) H 07/05/23 04:38 MCH 29.2 pg (27.0-31.0) 07/05/23 04:38 MCHC 30.2 g/dL (32.0-36.0) L 07/05/23 04:38 RDW 16.5 % (12.0-15.0) H 07/05/23 04:38 Plt Count 161 10^3/uL (130-450) 07/05/23 04:38 MPV 9.7 fL (7.4-11.4) 07/05/23 04:38 Neut # (Auto) 5.4 10^3/uL (1.5-6.6) 07/05/23 04:38 Lymph # (Auto) 1.3 10^3/uL (1.5-3.5) L 07/05/23 04:38 [place] # (Auto) 0.9 10^3/uL (0.0-1.0) 07/05/23 04:38 Eos # (Auto) 0.3 10^3/uL (0.0-0.7) 07/05/23 04:38 Baso # (Auto) 0.0 10^3/uL (0.0-0.1) 07/05/23 04:38 Absolute Nucleated RBC 0.00 x10^3/uL 07/05/23 04:38 Nucleated RBC % 0.0 /100WBC 07/05/23 04:38 Bld Gas Analysis Time 1903 06/26/23 17:50 Sample Site RIGHT RADIAL 06/26/23 17:50 ABG pH 7.42 (7.35-7.45) 06/26/23 17:50 ABG pCO2 38 mmHg (34-45) 06/26/23 17:50 ABG pO2 86 mmHg (80-100) 06/26/23 17:50 ABG HCO3 23.8 mmol/L (22.0-26.0) 06/26/23 17:50 ABG Total CO2 25.0 MMOL/L (21.0-29.0) 06/26/23 17:50 ABG O2 Saturation 96 % (94-98) 06/26/23 17:50 ABG Base Excess -0.4 mmol/L (-2.0-3.0) 06/26/23 17:50 Tarun Test POSITIVE 06/26/23 17:50 VBG pH 7.403 (7.31-7.41) 06/28/23 04:37 Ionized Calcium 1.11 mmol/L (1.15-1.33) L 06/28/23 04:37 O2 Liters/Min 30.00 LPM 06/26/23 17:50 FiO2 33.00 06/26/23 17:50 Sodium 144 mmol/L (135-145) 07/05/23 04:38 Potassium 4.1 mmol/L (3.5-4.5) 07/05/23 04:38 Chloride 107 mmol/L (101-111) 07/05/23 04:38 Carbon Dioxide 34 mmol/L (21-32) H 07/05/23 04:38 Anion Gap 3.0 (6-13) L 07/05/23 04:38 BUN 27 mg/dL (6-20) H 07/05/23 04:38 Creatinine 1.2 mg/dL (0.6-1.3) 07/05/23 04:38 Estimated GFR (MDRD) 61 (>89) L 07/05/23 04:38 Glucose 120 mg/dL (74-104) H 07/05/23 04:38 POC Whole Bld Glucose 126 mg/dL (70 - 100) H 06/29/23 21:19 Calcium 8.4 mg/dL (8.5-10.3) L 07/05/23 04:38 Phosphorus 4.8 mg/dL (2.5-5.0) 06/28/23 04:37 Magnesium 2.5 mg/dL (1.7-2.3) H 06/28/23 04:37 Total Bilirubin 0.5 mg/dL (0.2-1.0) 06/26/23 15:18 AST 27 IU/L (10-42) 06/26/23 15:18 ALT 48 IU/L (10-60) 06/26/23 15:18 Alkaline Phosphatase 71 IU/L (42-121) 06/26/23 15:18 Troponin I High Sens 51.8 ng/L (2.3-19.7) H* 06/26/23 18:16 Total Protein 6.9 g/dL (6.4-8.9) 06/26/23 15:18 Albumin 4.0 g/dL (3.2-5.5) 06/26/23 15:18 Globulin 2.9 g/dL (2.1-4.2) 06/26/23 15:18 Albumin/Globulin Ratio 1.4 (1.0-2.2) 06/26/23 15:18 Lipase 13 U/L (11-82) 06/26/23 15:18 TSH 1.09 uIU/mL (0.34-5.60) 06/27/23 04:13 Nasal Adenovirus (PCR) NOT DETECTED 06/26/23 15:08 Nasal B. parapertussis DNA (PCR) NOT DETECTED 06/26/23 15:08 Nasal Coronavir 229E PCR NOT DETECTED 06/26/23 15:08 Nasal Coronavir HKU1 PCR NOT DETECTED 06/26/23 15:08 Nasal Coronavir NL63 PCR NOT DETECTED 06/26/23 15:08 Nasal Coronavir OC43 PCR NOT DETECTED 06/26/23 15:08 Nasal Enterovir/Rhinovir PCR NOT DETECTED 06/26/23 15:08 Nasal Influenza B PCR NOT DETECTED 06/26/23 15:08 Nasal Influenza A PCR NOT DETECTED 06/26/23 15:08 Nasal Parainfluen 1 PCR NOT DETECTED 06/26/23 15:08 Nasal Parainfluen 2 PCR NOT DETECTED 06/26/23 15:08 Nasal Parainfluen 3 PCR NOT DETECTED 06/26/23 15:08 Nasal Parainfluen 4 PCR NOT DETECTED 06/26/23 15:08 Nasal RSV (PCR) NOT DETECTED 06/26/23 15:08 Nasal Screen MRSA (PCR) NEGATIVE (NEGATIVE) 06/26/23 17:30 Nasal B.pertussis DNA PCR NOT DETECTED 06/26/23 15:08 Nasal C.pneumoniae (PCR) NOT DETECTED 06/26/23 15:08 Cristofer Human Metapneumo PCR NOT DETECTED 06/26/23 15:08 Nasal M.pneumoniae (PCR) NOT DETECTED 06/26/23 15:08 Nasal SARS-CoV-2 (PCR) NOT DETECTED 06/26/23 15:08 - Procedures Procedures: Procedures COLONOSCOPY (01/21/14) DRAINAGE OF R PLEURAL CAV WITH DRAIN DEV, PERC APPROACH (11/06/15) REMOVAL OF DRAIN DEV FROM R PLEURAL CAV, MAP COMPILER APPROACH (11/06/15) Sepsis Event Note (H) - Evaluation Current Stage of Sepsis: Ruled out Possible source of Sepsis: positive: Pulmonary - Sepsis Criteria Sepsis Criteria: Recorded Heart Rate greater than 90 bpm, Recorded Respiratory Rate greater than 20
[2023-07-05] MEDS ORDERED: FUROSEMIDE 20 MG/2 ML VIAL IVP STA (14:17)
[2023-07-06] MEDS: SODIUM CHLORIDE FLUSH 0.9% 10 ML SYRINGE IVP SCH ×2 (01:00→09:48)
[2023-07-06] MEDS: ACETAMINOPHEN 325 MG TABLET PO PRN (05:28)
[2023-07-06] MEDS: PANTOPRAZOLE 40 MG TABLET PO SCH (06:07)
[2023-07-06] MEDS: GABAPENTIN 100 MG CAPSULE PO SCH (06:07)
[2023-07-06] MEDS: BUDESONIDE 0.5 MG/2 ML NEB INH SCH ×2 (06:49→06:51)
[2023-07-06] MEDS: IPRATROPIUM/ALBUTEROL 3 ML NEB INH SCH ×3 (06:50→10:57)
[2023-07-06 08:59] VITALS: BP 104/77; O2SAT 96
[2023-07-06] MEDS: MULTIVITAMIN W/MINERALS TABLET PO SCH (09:00)
[2023-07-06] MEDS: LIDOCAINE PATCH 5% TOP SCH (09:00)
[2023-07-06] MEDS: CITALOPRAM 10 MG TABLET PO SCH (09:00)
[2023-07-06] MEDS: VENLAFAXINE ER 75 MG CAPSULE PO SCH (09:00)
[2023-07-06] MEDS: ENOXAPARIN 40 MG/0.4 ML SYRINGE SUBQ SCH (09:00)
[2023-07-06] MEDS: LACTOBACILLUS RHAMNOSUS GG CAPSULE PO SCH (09:00)
[2023-07-06] MEDS: guaiFENesin 600 MG TABLET PO SCH (09:00)
[2023-07-06] MEDS: polyethylene glycoL 3350 17 GM PACKET PO SCH (09:00)
--- NOTE | 2023-07-06 09:28 | Discharge Plan ---
Discharge Plan Problem Reviewed?: Yes Disposition: Home, Self Care Condition: Fair Prescriptions: Furosemide [Lasix] 20 mg PO DAILY PRN #30 tablet PRN Reason: Swelling oxyCODONE [Roxicodone] 5 mg PO Q6H PRN #5 tab PRN Reason: Severe Pain (Level 7-10) Montelukast [Singulair] 10 mg PO QPM #30 tablet Diet: Regular Activity Restrictions: Activity as Tolerated Shower Restrictions: No Driving Restrictions: No Weight Bearing: Full Weight Instruction Topics: Chronic Lung Disease Prevent Infec, Disease Chronic Lung Quit Smoking Health Concerns: You were hospitalized to treat a pneumonia and a COPD exacerbation which was severe. You needed to be in the ICU. You have completed antibiotic treatment. You needed several doses of a diuretic to decrease swelling in your legs and scrotum. You are being discharged home today. Please continue to use your home oxygen. Resume all your usual lung medications and pre-hospital medications. A new prescription for Montelukast (for your lungs) has been prescribed for you. The prescription was electronically sent to the [facility] pharmacy here in [place]. A new prescription for Lasix (a water pill), to use as needed only if you get leg swelling, has also been prescribed to the pharmacy. Plan of Treatment: As above and you would benefit from attending Pulmonary Rehab here at the hospital, on the ground (basement) floor. Your PCP would need to order this. Care Goals: Improvement in symptoms and stabilization are the goals. Assessment: The patient understands and is agreeable with the plan. Additional Instructions or Follow Up instructions: If you have new or worsening symptoms, call your PCP for advice, or come to the ER. Follow-Up Care: [facility] - Pulmonary No Smoking: If you smoke, Please STOP! Call for help. Follow-up with: Miryam Bojorquez PA [Primary Care Provider] -
--- NOTE | 2023-07-06 10:37 | DISCHARGE SUMMARY ---
Discharge Summary Admit Date: 06/26/23 Discharge Date: 07/06/23 Discharging Provider: Dr Vonnie Francois Primary Care Provider: ZHENG Bojorquez Code Status: Attempt Resuscitation Condition at Discharge: Serious Discharge Disposition: 01 Home, Self Care - HPI History of Present Illness: This is a 62-year-old male who is an ex-alcoholic, and has a history of COPD and is on home oxygen. He is on 2L/min at rest and 4 L/min with activity. He has been more SOB the past 3 mos but describes rapidly worsening shortness of breath today, with a productive cough of green sputum. He was brought into the ER by EMS who had administered nebulizers and Solu-Medrol 125 mg iv. Despite this he had tripoding, rapid breathing with respiratory rate 35-40. He was wearing his own home oxygen and O2 saturation was 92%. Exam showed severe respiratory distress, tripoding, unable to finish complete sentences, tachypnea and no air movement on exam with scattered wheezes. He was administered more DuoNebs and IV steroids. He needed increase of his FiO2 up to high flow nasal cannula because he refused to put on BiPAP. With that his respiratory rate slowly improved very minimally. Chest x-ray showed left lower lobe infiltrate. WBC 10, L.A. neg, creat inceased slightly from his baseline CKD. The patient had blood cultures drawn and was started on Zithromax and Ceftriaxone. The ED provider then spoke to me about this patient. He still has a high respiratory rate and will be admitted to the ICU since he may need BiPAP management if he tires. I spoke to pt about his CODE BLUE wishes and he wants to be a Full Code. He would also agree to be on ventilator if needed. - HOSPITAL COURSE Hospital Course: (1) COPD with acute exacerbation Patient does have a history of oxygen dependent COPD. He needed ICU and Optiflow oxygen supplemental and was eventually transitioned to to nasal cannula O2. He received Prednisone 40 mg daily for 5 days, scheduled DuoNeb and Pulmicort, Montelukast, and prn expectorants. His baseline O2 setting is 2L at rest and 4L with activity. He did an oximetry walk test on the day of discharge and his O2 setting did not need to be changed. (2) Pneumonia Resolved. His sputum culture was positive for Enterobacter cloacae. Ceftriaxone provided coverage for this organism. He completed 5 days of antibiotics. (3) Acute kidney injury superimposed on CKD RCreat was elevated at admission, and slowly recovered to his baseline creatinine near 1.7. (4) Left leg swelling He developed left leg and scrotal swelling 07/03 in morning. US performed, and was negative for DVT. Likely iatrogenic due to IV fluids given over this admission, plus he has cor pulmonale. He was given IV lasix and sicharged home on po Lasix. (5) Scrotal swelling This is likely from volume overload plus cor pulmonale. He was given IV lasix and sicharged home on po Lasix. (6) Weakness He was weak from deconditioning. He worked with PT and OT and was able to be independent, thus the final PT/OT recommendations were to discharge pt home. Nicholas Gallo referral was placed for PT, OT and Bath Aide. - ALLERGIES Allergies/Adverse Reactions: Allergies Allergy/AdvReac Type Severity Reaction Status Date / Time No Known Drug Allergies Allergy Verified 07/08/23 16:20 - MEDICATIONS Home Medications: Ambulatory Orders Medication Instructions Recorded Confirmed Albuterol 2.5 mg INH Q4H PRN 04/24/22 07/09/23 Fluticasone/Salmeterol [Advair Hfa 2 puffs PO BID 06/27/23 07/09/23 115-21 Mcg Inhaler] Ipratropium/Albuterol [Duoneb] 3 ml INH Q4H PRN 06/27/23 07/09/23 Venlafaxine ER [Effexor ER] 225 mg PO DAILY 06/27/23 07/09/23 Furosemide [Lasix] 20 mg PO DAILY PRN #30 tablet 07/06/23 07/09/23 Montelukast [Singulair] 10 mg PO QPM #30 tablet 07/06/23 07/09/23 oxyCODONE [Roxicodone] 5 mg PO Q6H PRN #5 tab 07/06/23 07/09/23 Ipratropium [Atrovent] 2 inh QID 07/09/23 07/09/23 - PHYSICAL EXAM AT DISCHARGE General Appearance: positive: Alert, Mild distress (He is chronically tachypneic at rest despite wearing O2 NC) Eyes Bilateral: positive: Normal inspection, EOMI ENT: positive: ENT inspection nml, No signs of dehydration Respiratory: positive: Other (Tachypneic with speaking, poor air movement and diffuse lung nunez but clear with no wheezing) Cardiovascular: positive: Regular rate & rhythm (Distant heart sounds due to COPD) Abdomen: positive: Non-tender, Nml bowel sounds, No distention Skin: positive: Warm, Dry Extremities: positive: Non-tender, Other (Left ankle and calf are larger than right, he has trace pedal edema) Neurologic/Psychiatric: positive: Oriented x3, Motor nml - LABS Result Diagrams: 07/05/23 04:38 07/05/23 04:38 - DIAGNOSTIC IMAGING Diagnostic Imaging Results: Final report reviewed - SEPSIS Sepsis Criteria: Recorded Heart Rate greater than 90 bpm, Recorded Respiratory Rate greater than 20 - FOLLOW UP Follow Up: See PCP after discharge. He lives with his sister. They are considering a referral for him to Hospice. - TIME SPENT Time Spent in Discharge (Minutes): 40
== END 2023-07-06 13:25 | disposition home or self-care (01) | DRG 190 ==
LOC: EDUNIT# → ED 15:00 → ICU 16:32 → MS2 06-29 19:55
PROVIDERS: ADMIT Internal Medicine; ATTEND Internal Medicine
DX: J44.0 Chronic obstructive pulmonary disease with (acute) lower respiratory infection (principal); J15.69 Pneumonia due to other Gram-negative bacteria; N17.9 Acute kidney failure, unspecified; J44.1 Chronic obstructive pulmonary disease with (acute) exacerbation; Z99.81 Dependence on supplemental oxygen; Z87.891 Personal history of nicotine dependence; F32.A Depression, unspecified; F41.9 Anxiety disorder, unspecified; N18.9 Chronic kidney disease, unspecified; R53.1 Weakness; N50.89 Other specified disorders of the male genital organs; I27.81 Cor pulmonale (chronic); R22.42 Localized swelling, mass and lump, left lower limb; F10.21 Alcohol dependence, in remission; K30 Functional dyspepsia; E87.5 Hyperkalemia
CPT/HCPCS: 36415; 36600; 71045; 80048; 80051; 80053; 82330; 82803; 83690; 83735; 84100; 84132; 84443; 84484; 85025; 87040; 87070; 87077; 87150; 87181; 87205; 87633; 93005; 93306; 93971; 94640; 96374; 97116; 97163; 97167; 97535; 99285; A9270; J1650; J1815; J2060; J7512; J7626

== ENCOUNTER 2023-07-08 15:53 | Outpatient (CLI) | payer MEDICAID | END 2023-07-08 15:54 | disposition critical access hospital (66) | LOC: EMS 15:53 | DX: R06.00 Dyspnea, unspecified (principal); R04.2 Hemoptysis; Z99.81 Dependence on supplemental oxygen | CPT/HCPCS: A0425; A0427; A0999 ==

== ENCOUNTER 2023-07-08 15:58 | Inpatient (IN) | payer MEDICAID ==
--- NOTE | 2023-07-08 16:12 | ED Physician Documentation ---
PD HPI DYSPNEA - Stated complaint Stated Complaint: SOA - History obtained from History obtained from: Patient, Family - Additional information Additional information: This is a 62-year-old male with a past medical history of severe bullous emphysema, anxiety, CHF w/ echo showing EF of 15-20% on 06/26 with severe global hypokinesis, prior alcohol use, and recent admission for COPD exacerbation as well as a left lower lobe pneumonia and was hospitalized here from 06/26 to 07/06. He completed antibiotics in the hospital and was discharged home on 07/06 on his baseline oxygen which is 2 L at rest and 4 L with activity. Patient states he never felt back to normal and felt like they sent him home too early. He has been short of breath since he has been home he has been coughing with blood tinged sputum or sometimes coughing up blood clots. He has had significant shortness of breath not relieved by his home inhalers and nebs. He has also apparently been having some blood in his urine and has some diarrhea that is also blood tinged. Patient has not had a fever, he denies chest pain, no abdominal pain no nausea vomiting, no dysuria urgency or frequency. He is tolerating PO. He has been taking medication as prescribed upon discharge. He is a currently living with his sister and they are inquiring about hospice care as they understand that he has a end-stage emphysema and his supervisor intermediates prognosis is poor. They would like the patient to be hospitalized until hospice is arranged however as they feel they cannot manage to care for him at home. PD PAST MEDICAL HISTORY - Past Medical History Past Medical History: Yes Cardiovascular: Congestive heart failure Respiratory: COPD (on home O2), Sleep apnea, Other (3 episodes of spontaneous pneumothorax) Neuro: None Endocrine/Autoimmune: None GI: None, Other (Had liver problems when drank alot, quit alcohol abuse 1 year ago) : None HEENT: None Psych: Depression, Anxiety, Panic attacks, ADD/ADHD, Claustrophobia Musculoskeletal: None Derm: None - Past Surgical History Past Surgical History: Yes HEENT: Tonsil/Adenoidectomy - Present Medications Home Medications: Ambulatory Orders Medication Instructions Recorded Confirmed Albuterol 2.5 mg INH Q4H PRN 04/24/22 06/27/23 Citalopram [CeleXA] 10 mg PO DAILY 04/24/22 06/27/23 Gabapentin [Neurontin] 100 mg PO TID #60 cap 04/25/22 06/27/23 Lidocaine Patch 5% [Lidoderm Patch] 1 patch TOP DAILY #30 patch 04/25/22 06/27/23 Fluticasone/Salmeterol [Advair Hfa 2 puffs PO BID 06/27/23 06/27/23 115-21 Mcg Inhaler] Ipratropium [Atrovent] 2 puffs PO BID 06/27/23 06/27/23 Ipratropium/Albuterol [Duoneb] 3 ml INH Q4H PRN 06/27/23 06/27/23 Venlafaxine ER [Effexor ER] 225 mg PO DAILY 06/27/23 06/27/23 Furosemide [Lasix] 20 mg PO DAILY PRN #30 tablet 07/06/23 Montelukast [Singulair] 10 mg PO QPM #30 tablet 07/06/23 oxyCODONE [Roxicodone] 5 mg PO Q6H PRN #5 tab 07/06/23 - Allergies Allergies/Adverse Reactions: Allergies Allergy/AdvReac Type Severity Reaction Status Date / Time No Known Drug Allergies Allergy Verified 07/08/23 16:20 - Social History Does the pt smoke?: No Smoking Status: Never smoker Does the pt drink ETOH?: Yes Does the pt have substance abuse?: No PD ED PE NORMAL - Vitals Vital signs reviewed: Yes - General General: Alert and oriented X 3, No acute distress, Other (Appears chronically ill, mildly tachypneic.) - HEENT HEENT: Atraumatic, Moist mucous membranes - Neck Neck: Supple, no meningeal sign, No adenopathy, No JVD - Cardiac Cardiac: Other (Tachycardic) - Respiratory Respiratory: Other (Extremely diminished lung sounds bilaterally, no wheezing or crackles. Mild tachypnea. Frequent cough sometimes productive of blood- tinged sputum) - Abdomen Abdomen: Normal bowel sounds, Soft, Non tender, Non distended - Derm Derm: Normal color, Warm and dry, No rash - Extremities Extremities: No deformity, No tenderness to palpate, Normal ROM s pain, No edema, No calf tenderness / cord - Neuro Neuro: Alert and oriented X 3 Eye Opening: Spontaneous Motor: Obeys Commands Verbal: Oriented GCS Score: 15 - Psych Psych: Normal mood, Other (anxious affect) Results - Vitals Vitals: Vital Signs - 24 hr 07/08/23 07/08/23 07/08/23 16:16 16:30 16:48 Temperature 36.0 C L Heart Rate 108 H 117 H 100 Respiratory 25 H 20 20 Rate Blood Pressure 138/91 H 110/84 H O2 Saturation 100 94 If not protocol 4 : Oxygen Flow, liters/minute 07/08/23 07/08/23 07/08/23 17:40 18:23 20:00 Temperature Heart Rate 66 111 H 100 Respiratory 23 28 H 18 Rate Blood Pressure 119/99 H 121/99 H 121/95 H O2 Saturation 94 97 94 If not protocol 4 4 4 : Oxygen Flow, liters/minute 07/08/23 07/08/23 20:38 21:15 Temperature Heart Rate 87 103 H Respiratory 18 19 Rate Blood Pressure 126/95 H 93/73 O2 Saturation 95 95 If not protocol 4 : Oxygen Flow, liters/minute Oxygen O2 Source Room air Oxygen Flow Rate 4 - EKG (time done) No standard instances EKG releavant findings:: EKG personally interpreted by author of this note. Relevant findings are: Rate: Rate (enter#) (105), Tachy Rhythm: Sinus tachycardia [place]: RAD Intervals: Normal [place] QRS: Normal Ischemia: Normal ST segments Computer interpretation: Agree with computer - Labs Labs: Laboratory Tests 07/08/23 07/08/23 07/08/23 16:30 16:30 16:30 WBC 9.7 RBC 3.28 L Hgb 9.6 L Hct 31.1 L MCV 94.8 H MCH 29.3 MCHC 30.9 L RDW 17.1 H Plt Count 153 MPV 10.1 Neut # (Auto) 8.0 H Lymph # (Auto) 0.6 L [place] # (Auto) 1.0 Eos # (Auto) 0.0 Baso # (Auto) 0.0 Absolute Nucleated RBC 0.00 Nucleated RBC % 0.0 Bld Gas Analysis Time Sample Site ABG pH ABG pCO2 ABG pO2 ABG HCO3 ABG Total CO2 ABG O2 Saturation ABG Base Excess Tarun Test O2 Delivery Device O2 Liters/Min Sodium 141 Potassium 4.5 Chloride 102 Carbon Dioxide 33 H Anion Gap 6.0 BUN 36 H Creatinine 1.6 H Estimated GFR (MDRD) 44 L Glucose 137 H Calcium 9.2 Total Bilirubin 0.8 AST 36 ALT 76 H Alkaline Phosphatase 45 Troponin I High Sens 40.3 H* B-Natriuretic Peptide 2109 H Total Protein 5.8 L Albumin 3.8 Globulin 2.0 L Albumin/Globulin Ratio 1.9 Lipase < 10 L 07/08/23 19:00 WBC RBC Hgb Hct MCV MCH MCHC RDW Plt Count MPV Neut # (Auto) Lymph # (Auto) [place] # (Auto) Eos # (Auto) Baso # (Auto) Absolute Nucleated RBC Nucleated RBC % Bld Gas Analysis Time 19.02 Sample Site RIGHT RADIAL ABG pH 7.45 ABG pCO2 47 H ABG pO2 64 L ABG HCO3 31.3 H ABG Total CO2 32.7 H ABG O2 Saturation 91 L ABG Base Excess 6.4 H Tarun Test POSITIVE O2 Delivery Device NASAL CANNULA O2 Liters/Min 2.00 Sodium Potassium Chloride Carbon Dioxide Anion Gap BUN Creatinine Estimated GFR (MDRD) Glucose Calcium Total Bilirubin AST ALT Alkaline Phosphatase Troponin I High Sens B-Natriuretic Peptide Total Protein Albumin Globulin Albumin/Globulin Ratio Lipase - Rads (name of study) No standard instances Relevant Findings:: Final report received, See rad report PD Medical Decision Making - ED course Complexity details: reviewed old records, reviewed results, re-evaluated patient, considered differential, d/w patient, d/w family ED course: 62 yo M With past medical history as listed above presented with cough, shortness of breath, Hemoptysis in possibly some hematochezia Or bright red blood in the stool. He was recently hospitalized as described in HPI. Notably here, the patient is mildly dyspneic but saturating well on his baseline 4 L nasal cannula. He has a frequent primarily dry cough though did occasionally cough up some bloody sputum. He has very poor air movement but no wheezing, no crackles. We obtained a chest x-ray which shows his known emphysema, no other acute findings. The patient was given a DuoNeb, 40 mg of IV Lasix, as well as Ativan as he does have a underlying history of anxiety which is contributing. Labs are obtained including CBC CMP which are similar to prior, he has mildly elevated high-sensitivity troponin though down from his most recent lab values. His BNP is elevated in the s. EKG shows sinus tachycardia, no acute ischemic changes. I did obtain a CT of his chest to further evaluate given his sx and this showed severe bullous emphysema along with superimposed edema which is likely contributing to his symptoms. ABG showed hypoxia the patient was only on 2 L at that time and we will plan to repeat it when he is on his baseline of 4 L. I discussed w/ pt and his sister that there likely wasn't indicated for hospitalization at this time, but I do think that hospice is appropriate. I spoke w/ concrete finisher and they can see him on Monday. Initial plan given stability of labs was to discharge the patient home with plan for hospice to see patient on Monday however sister was reluctant to take him home tonight and asked if he could stay overnight for monitoring. At this time I do not have an indication for admission but we will monitor in the ER overnight until social work can see meet w/ patient and family in the morning to help set up home needs. We will therefore monitor the patient overnight, continue DuoNebs as needed, I will restart his home budesonide, Mucinex and morphine as needed. Will give an additional dose of Lasix IV now and in the morning. Anticipate the patient should be able to discharge home with plan to go on hospice after family has had a chance to meet with social work. Patient signed out to Dr. Gracia at the conclusion of my shift. Departure - Departure Clinical Impression: Severe chronic obstructive pulmonary disease Condition: Fair
[2023-07-08] MEDS ORDERED: LORazepam 2 MG/ML VIAL IVP STA ×2 (16:29→21:48)
[2023-07-08] MEDS ORDERED: IPRATROPIUM/ALBUTEROL 3 ML NEB INH STA (16:30)
[2023-07-08 16:36] LABS: BASOPHILS % (AUTO) 0.2 %; EOSINOPHILS % (AUTO) 0.3 %; HCT - HEMATOCRIT 31.1 % (42.0-52.0); HGB - HEMOGLOBIN 9.6 g/dL (14.0-18.0); LYMPHOCYTES # (AUTO) 0.6 10^3/uL (1.5-3.5); LYMPHOCYTES % (AUTO) 6.6 %; MEAN CORPUSCULAR HEMOGLOBIN 29.3 pg (27.0-31.0); MEAN CORPUSCULAR HGB CONC 30.9 g/dL (32.0-36.0); MEAN CORPUSCULAR VOLUME 94.8 fL (80.0-94.0); MEAN PLATELET VOLUME 10.1 fL (7.4-11.4); MONOCYTES % (AUTO) 10.1 %; NEUTROPHILS % (AUTO) 82.5 %; PLT - PLATELET COUNT 153 10^3/uL (130-450); RED BLOOD COUNT 3.28 10^6/uL (4.70-6.10); RED CELL DISTRIBUTION WIDTH 17.1 % (12.0-15.0); WHITE BLOOD COUNT 9.7 x10^3/uL (4.8-10.8)
--- NOTE | 2023-07-08 16:49 | XRAY Report ---
PROCEDURE: Chest 1 View X-Ray INDICATIONS: chest pain TECHNIQUE: One view of the chest was acquired. COMPARISON: July 03, 2023 FINDINGS: Surgical changes and devices: None. Lungs and pleura: Severe emphysematous changes of the lungs with large bulla within the right lung b ase. Mediastinum: Mediastinal contours appear normal. Heart size is normal. Bones and chest wall: No suspicious bony lesions. Overlying soft tissues appear unremarkable. IMPRESSION: Stable bullous changes to the right lower lobe. No acute cardiopulmonary process. Reviewed by: Tobias Sullivan MD on 07/08/2023 3:48 PM [facility] Approved by: Tobias Sullivan MD on 07/08/2023 3:48 PM [facility] Station ID: [id number]
[2023-07-08 16:56] LABS: ALBUMIN 3.8 g/dL (3.2-5.5); ALBUMIN/GLOBULIN RATIO 1.9 (1.0-2.2); ALKALINE PHOSPHATASE 45 IU/L (42-121); ALT ALANINE AMINOTRANSFERASE 76 IU/L (10-60); AST ASPARTATE AMINOTRANSFERASE 36 IU/L (10-42); BILIRUBIN,TOTAL 0.8 mg/dL (0.2-1.0); BUN - BLOOD UREA NITROGEN 36 mg/dL (6-20); CALCIUM 9.2 mg/dL (8.5-10.3); CARBON DIOXIDE - CO2 33 mmol/L (21-32); CHLORIDE 102 mmol/L (101-111); CREATININE 1.6 mg/dL (0.6-1.3); GFR - MDRD 44 (>89); GLUCOSE 137 mg/dL (74-104); POTASSIUM 4.5 mmol/L (3.5-4.5); SODIUM 141 mmol/L (135-145); TOTAL PROTEIN 5.8 g/dL (6.4-8.9)
[2023-07-08] MEDS ORDERED: FUROSEMIDE 40 MG/4 ML VIAL IVP STA (17:02)
[2023-07-08 17:04] LABS: LIPASE < 10 U/L (11-82); TROPONIN I HIGH SENSITIVITY 40.3 ng/L (2.3-19.7)
[2023-07-08] MEDS ORDERED: MORPHINE 2 MG/ML CARPUJECT IVP STA (18:36)
[2023-07-08 19:08] LABS: ABG BASE EXCESS 6.4 mmol/L (-2.0-3.0); ABG HCO3 31.3 mmol/L (22.0-26.0); ABG OXYGEN SATURATION 91 % (94-98); ABG PCO2 47 mmHg (34-45); ABG PH 7.45 (7.35-7.45); ABG PO2 64 mmHg (80-100); ABG TCO2 32.7 MMOL/L (21.0-29.0)
[2023-07-08 19:09] LABS: ALLEN TEST POSITIVE
[2023-07-08] MEDS ORDERED: iohexoL-300 100 ML VIAL IVP ONE (20:48)
--- NOTE | 2023-07-08 21:16 | CT Report ---
PROCEDURE: ANGIO CHEST W/WO INDICATIONS: hemoptysis, severe emphysema, hypoxia. CONTRAST: 100 ML OMNI 300 TECHNIQUE: After the administration of intravenous contrast, 2 mm axial images were acquired from the pulmonary apices to the posterior costophrenic angles during the arterial phase. In addition, 1 mm lung kernel and 5 mm soft tissue kernel reconstructions were performed. 3-dimensional coronal oblique maximum int ensity projection (MIP) reformats, 8 mm axial MIP, and 5 mm coronal and sagittal MPR reformats were t hen performed through the thorax. For radiation dose reduction, the following was used: automated exp osure control, adjustment of mA and/or kV according to patient size. COMPARISON: Prior chest plain films 07/03/2023 and 06/26/[address] 04/24/2022 revie wed. FINDINGS: Image quality: Excellent. Large vessels: No filling defects within the opacified pulmonary arteries, accounting for motion and contrast timing. No evidence of acute aortic syndrome or aortic aneurysm. Lungs and pleura: No dense consolidation but there is a pattern of alveolar edema superimposed on sev ere centrilobular and bullous emphysematous change. A large pneumatocele at the right lower lobe, pre viously present, now appears to contain a dependent layering of fluid, mild in overall severity. No p leural effusions. No pneumothorax. No suspicious pulmonary nodules which require follow up. Mediastinum: Heart size is normal. No pericardial effusion. No large vessel abnormality. No mediastin al adenopathy by size criteria. Chest wall and lower neck: Thyroid is unremarkable. No axillary or supraclavicular adenopathy by size . Bones: No aggressive osseous abnormality. Upper Abdomen: Unremarkable. IMPRESSION: No pulmonary embolus. Severe emphysematous change comprised of long-standing both centrilobular emphysema and bullous emphy sema is again noted but now there is a superimposed alveolar edema pattern further compromising pulmo nary function. The appearance could be produced by cardiogenic pulmonary edema but also could represe nt a manifestation of atypical/viral pneumonia. Reviewed by: Dane Middleton MD on 07/08/2023 9:15 PM PST Approved by: Dane Middleton MD on 07/08/2023 9:15 PM PST Station ID: [id number]
[2023-07-08] MEDS ORDERED: ACETAMINOPHEN 500 MG TABLET PO PRN (21:45)
[2023-07-08] MEDS ORDERED: ONDANSETRON 4 MG/2 ML VIAL IVP PRN (21:45)
[2023-07-08] MEDS ORDERED: IPRATROPIUM/ALBUTEROL 3 ML NEB INH PRN (21:48)
[2023-07-08] MEDS: MORPHINE 2 MG/ML CARPUJECT IVP STA (22:23)
[2023-07-08] MEDS: guaiFENesin 600 MG TABLET PO SCH (22:23)
[2023-07-09] MEDS: MORPHINE 2 MG/ML CARPUJECT IVP STA (00:24)
[2023-07-09] MEDS ORDERED: IPRATROPIUM/ALBUTEROL 3 ML NEB INH STA (03:30)
[2023-07-09] MEDS ORDERED: HALOPERIDOL 5 MG/ML VIAL IM STA ×2 (04:13→04:33)
[2023-07-09] MEDS ORDERED: LORazepam 2 MG/ML VIAL IM STA ×2 (04:13→04:33)
[2023-07-09] MEDS ORDERED: diphenhydrAMINE INJ 50 MG/ML VIAL IM STA ×2 (04:15→04:33)
--- NOTE | 2023-07-09 04:19 | ED Physician Documentation ---
Restraint Ppeq-en-Kiun - Immediate Situation Face to Face Evaluation Date: 07/09/23 Face to Face Evaluation Time: 04:16 Restraint Classification: Violent, chemical w/ physical hold Restraint Type: Chemical - Patient's Reaction & Behaviors Safety: Physically unsafe, Non-compliant, Unable to Follow Commands Verbal: Demanding Harm: Potential harm to self, Potential harm to others Physical: Aggressive behavior, Fighting restraints Other: Disruption of therapy, Attempting removal of medically necessary rita ce(s) - Behavioral Condition Attitude: Indifferent Behavior: Uncooperative, Belligerent, Agitated Orientation: Disoriented to all Mood: Labile Behavioral Condition Comments: Patient has been progressively more agitated throughout the night. Initially patient responsive to verbal redirection. Patient abruptly removed all of his medical equipment including his oxygen, left his bed, and began to wander the hallways. He was unable to be redirected despite numerous attempts from nursing and ancillary staff. Patient broke into the staff room and urinated into a trash can. Will administer medications for agitation and will restrain patient for safety. - Evaluation Pertinent History/Illicit Drugs/Medications/Results: none known
[2023-07-09] MEDS ORDERED: diphenhydrAMINE INJ 50 MG/ML VIAL ONE (04:32)
[2023-07-09 06:02] LABS: BASOPHILS % (AUTO) 0.4 %; EOSINOPHILS # (AUTO) 0.1 10^3/uL (0.0-0.7); EOSINOPHILS % (AUTO) 0.6 %; HCT - HEMATOCRIT 27.6 % (42.0-52.0); HGB - HEMOGLOBIN 8.6 g/dL (14.0-18.0); LYMPHOCYTES # (AUTO) 0.7 10^3/uL (1.5-3.5); LYMPHOCYTES % (AUTO) 8.9 %; MEAN CORPUSCULAR HEMOGLOBIN 29.4 pg (27.0-31.0); MEAN CORPUSCULAR HGB CONC 31.2 g/dL (32.0-36.0); MEAN CORPUSCULAR VOLUME 94.2 fL (80.0-94.0); MEAN PLATELET VOLUME 10.4 fL (7.4-11.4); MONOCYTES # (AUTO) 0.8 10^3/uL (0.0-1.0); MONOCYTES % (AUTO) 10.1 %; NEUTROPHILS # (AUTO) 6.3 10^3/uL (1.5-6.6); NEUTROPHILS % (AUTO) 79.6 %; PLT - PLATELET COUNT 133 10^3/uL (130-450); RED BLOOD COUNT 2.93 10^6/uL (4.70-6.10); RED CELL DISTRIBUTION WIDTH 16.9 % (12.0-15.0); WHITE BLOOD COUNT 7.9 x10^3/uL (4.8-10.8)
[2023-07-09 06:16] LABS: CALCIUM 8.6 mg/dL (8.5-10.3); CREATININE 1.8 mg/dL (0.6-1.3); POTASSIUM 3.9 mmol/L (3.5-4.5)
[2023-07-09] MEDS ORDERED: PANTOPRAZOLE 40 MG TABLET PO SCH (07:00)
[2023-07-09] MEDS ORDERED: VENLAFAXINE ER 75 MG CAPSULE PO SCH (09:00)
[2023-07-09] MEDS ORDERED: FUROSEMIDE 20 MG TABLET PO SCH (09:00)
--- NOTE | 2023-07-09 10:43 | ED Physician Documentation ---
ED Addendum - Addendum Addendum: 07/09/23 10:42 Signed out to me by the overnight physician at 7 AM shift change. He has been delirious here and mostly sleeping this morning. At this time he did get up out of bed and was wandering and ended up falling in his room. I had made my way into the room and watched the fall although could not get to them quite in time to keep it from happening. He did not seem injured, just really went down onto his buttocks. Was ambulatory afterwards and no complaints of pain. He is not oriented to person even and it sounds like this is not his baseline. He was reported to be sundowning overnight, but now that it is 10 AM seems persistently altered. Plan to obtain CT scanning of his head and admit for delirium. 07/09/23 13:20 CT of the head was unremarkable. He remains quite delirious, almost unarousable. Sister at the bedside now and discussed plan given delirium to a dmit and she is agreeable. His ammonia level in the interim was also negative. Call the hospitalist pending callback at this time for admission. Disposition: Admitted to the hospital Condition: Stable Diagnoses: Delirium COPD
[2023-07-09] MEDS: guaiFENesin 600 MG TABLET PO SCH (10:57)
--- NOTE | 2023-07-09 13:05 | CT Report ---
PROCEDURE: HEAD WO INDICATIONS: ams TECHNIQUE: Noncontrast 4.5 mm thick angled axial sections acquired from the foramen magnum to the vertex. For r adiation dose reduction, the following was used: automated exposure control, adjustment of mA and/or kV according to patient size. COMPARISON: CT April 24, 2022 FINDINGS: Image quality: Degraded by patient motion. CSF spaces: Basal cisterns are patent. No extra-axial fluid collections. Ventricles are normal in size and shape. Brain: No midline shift. No intracranial masses or hemorrhage. Colin-white matter interface is norm al. Skull and face: Calvarium and visualized facial bones are intact, without suspicious lesions. Sinuses: Visualized sinuses and mastoids are clear. IMPRESSION: No acute intracranial pathology. Reviewed by: Tobias Sullivan MD on 07/09/2023 12:04 PM [facility] Approved by: Tobias Sullivan MD on 07/09/2023 12:04 PM [facility] Station ID: [id number]
--- NOTE | 2023-07-09 16:01 | HISTORY & PHYSICAL EXAMINATION ---
History of Present Illness - Admitted From Admitted From:: ED - History Obtained From History obtained from: ED provider and chart review - History of Present Illness HPI Comment/Other: This is a 62-year-old male who is an ex-alcoholic, and has a history of end- stage COPD, has blebs and spontaneous pneumothorax x3 in the past. He lives with his sister and is on home oxygen. He was discharged from here 3 days ago after being hospitalized from 06/26 to 07/06 for treating a COPD exacerbation and pneumonia. An inpatient Echo was done that showed four-chamber dilatation, with severe LV and RV systolic failure. Due to deconditioning, he initially was to be discharged to a SNF for PT and OT rehab, but while waiting to be accepted to a SNF, he progressed with PT and OT and was able to be independent, thus he was discharged to home with a Home Health referral for PT, OT and Bath Aide.. Patient presented to the ER yesterday for complaints of worsening shortness of breath. He said he was taking all his prescriptions including the new ones and was on his home O2. The ER evaluation showed COPD with blebs, no pneumonia on CXR, oxygen saturation was 92% and above and there was no indication for him to be admitted last night. He stayed in the ER overnight however, to be seen by Associate Agent [employer] today, in order to accelerate the referral to Hospice. Overnight he became confused, pulled off all his equipment, walked into the staff lounge and urinated into the trash can, could not be redirected and needed to be put in restraints and sedated. When restraints were removed this morning, he got out of bed and fell while walking in his ER room. A CT head was done that was unremarkable. He was still disoriented however. The ER provider spoke to me about this patient. He will be admitted to the Hospitalist service for managing delirium and chronic respiratory failure. History - Past Medical History Cardiovascular: reports: Congestive heart failure (recently Dx by Echo) Respiratory: reports: COPD (on home O2), Sleep apnea, Other (3 episodes of spontaneous pneumothorax) Neuro: reports: None Endocrine/Autoimmune: reports: None GI: reports: None, Other (Had liver problems when drank alot, quit alcohol abuse 1 year ago) : reports: Other (recent scrotal swelling from R heart failure) HEENT: reports: None Psych: reports: Depression, Anxiety, Panic attacks, ADD/ADHD, Claustrophobia Musculoskeletal: reports: None Derm: reports: None MRSA Hx?: No - Past Surgical History HEENT: reports: Tonsil/Adenoidectomy - Family & Social History Family History Comment/Other: He has 2 brothers and 2 sisters. He has 1 daughter. 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 He quit smoking many years ago. He used to drink 1-2 bottles of vodka a day, he stopped that less than a year ago completely for 4 mos. Last month he reports drinking 1-3 beers about 2 times a week. He uses no illicit drugs. - Substance History Use: Uses substance without health or social issues: NONE - POLST Patient has POLST: No Meds/Allgy - Home Medications Home Medications: Ambulatory Orders Medication Instructions Recorded Confirmed Albuterol 2.5 mg INH Q4H PRN 04/24/22 07/09/23 Fluticasone/Salmeterol [Advair Hfa 2 puffs PO BID 06/27/23 07/09/23 115-21 Mcg Inhaler] Ipratropium/Albuterol [Duoneb] 3 ml INH Q4H PRN 06/27/23 07/09/23 Venlafaxine ER [Effexor ER] 225 mg PO DAILY 06/27/23 07/09/23 Furosemide [Lasix] 20 mg PO DAILY PRN #30 tablet 07/06/23 07/09/23 Montelukast [Singulair] 10 mg PO QPM #30 tablet 07/06/23 07/09/23 oxyCODONE [Roxicodone] 5 mg PO Q6H PRN #5 tab 07/06/23 07/09/23 Ipratropium [Atrovent] 2 inh QID 07/09/23 07/09/23 - Allergies Allergies/Adverse Reactions: Allergies Allergy/AdvReac Type Severity Reaction Status Date / Time No Known Drug Allergies Allergy Verified 07/09/23 16:04 Review of Systems - Constitutional Constitutional: reports: Fatigue, Weakness - Cardiovascular Cariovascular: reports: Edema - Respiratory Respiratory: reports: Cough, Hemoptysis, Orthopnea, SOB at rest, SOB with exerti on - All Other Systems All Other Systems: reports: Other (Obtained from review of the HPI, patient is in distress, but is now oriented, and cannot give a detailed ROS) Exam - Vital Signs Reviewed Vital Signs: Yes Vital Signs: Vital Signs x48h Temp Pulse Resp BP Pulse Ox O2 Flow Rate 07/09/23 13:00 36.8 C 96 20 90/70 95 4 07/09/23 11:00 3 C L 103 H 22 129/78 94 4 07/09/23 09:00 99 23 113/88 H 96 4 07/09/23 08:30 103 H 23 120/87 H 91 L 4 07/09/23 08:07 36.2 C L 98 28 H 120/95 H 92 4 - Physical Exam General Appearance: positive: Moderate distress (from tachypnea), Lethargic, Other (Tall, thin male, disheveled, w/ very long hair, long arrieta) Eyes Bilateral: positive: No lid inflammation ENT: positive: No signs of dehydration Neck: positive: Other (Neck is entirely covered with long arrieta and long hair) Respiratory: positive: Other (Poor air movement in all lung nunez) Cardiovascular: positive: No murmur (but distant heart sounds), Tachycardia Abdomen: positive: Non-tender, No distention Skin: positive: Warm, Dry, Pallor Extremities: positive: Non-tender, No pedal edema, Other (Left ankle is larger than right) Neurologic/Psychiatric: positive: Other (Lethargic/awakens and speaks, moves all extrem, oriented x3) Conclusion/Plan - Problem List (1) Delirium Conclusion/Plan: This was discussed with the ED provider. He did not initially present with delirium, but got confused at night (? ), and was not redirectable. He was then given sedatives and slept. Then upon awakening he has remained delirious. The continued delirium may be residential effect from getting the iv sedatives, but I suspect he also could have been hypoxic or had CO2 retention causing this new confusion. Plan: We will try not to give sedatives, thus I will order one-to-one in room monitoring Start his home dose of daily Venlafaxine Will order prn Haldol for confusion w/ agitation Continue with his usual medications and management and try to avoid hypoxia (2) Severe chronic obstructive pulmonary disease Conclusion/Plan: The patient has end-stage COPD. He has blebs and has had 3 spontaneous pneumothoraxes in the past. He is on supplemental O2. He is prescribed to get nebulized bronchodilators at home Plan: Will order DuoNebs every 4 hours as needed Will give Pulmicort nebulized twice daily Will put him on 1 day of Solumedrol iv TID then transition to oral steroids for management with plan for extremely slow taper over several months I will give him Montelukast at bedtime, scheduled Mucinex and prn Robitussin w/ codeine. I will order IV morphine as needed for dyspnea and air hunger Continue with supplemental O2, and target saturation will be 89% and this COPD- er I will order a referral to Hospice (3) Dilated cardiomyopathy Conclusion/Plan: Echo was done 06/26/2023. Cardiomyopathy is a new diagnosis by Echo showing four- chamber dilatation with severe LV systolic failure and RV systolic failure. I suspect this is from longstanding alcohol abuse. Plan: I will start the patient on low-dose beta-1 selective beta-blockers if his BP and heart rate can tolerate it Continue with IV twice daily diuretics Start Spironolactone If creatinine decreases, I will start him on an LUCIE or an ARB, otherwise will consider hydralazine plus nitrates, also if his BP will allow it Follow I's and O's Salt restricted diet ordered I will order as needed Hyoscyamine TL for secretion This finding of dilated CMthy plus his end-stage COPD, do qualify him for Hospice. I will place a referral for Hospice care after discharge. At the last recent admission, he told me he wants to be a Full Code and would go on the ventilator if needed. I will speak to his sister, or to him when he is more lucid, about realistic goals and his wishes for CODE STATUS. (4) Acute kidney injury superimposed on CKD Conclusion/Plan: The patient's baseline creatinine is 1.2. Since being home for 3 days and readmitted, the creatinine has now increased to 1.8. This is very likely due to cardio-renal syndrome Plan: We will continue with IV diuretics Follow I's and O's Avoid nephrotoxins Follow BMP daily (5) Anxiety Conclusion/Plan: The patient was witnessed to have panic attacks when he was having air hunger at the last recent admisision. He also described generalized anxiety and claustrophobia Plan: I will order as needed Haldol for agitation Await his reconciled med list to resume any meds he may be on for anxiety>> will resume his venlafaxine - Lab Results Fish Bones: 07/09/23 05:55 07/09/23 05:55 - Diagnostic Imaging Results Diagnostic Imaging Results: positive: Final report reviewed - Other Other Results/Comments: Attestation: The patient is expected to be hospitalized for greater than 2 midnights and is expected to be discharged or transferred to another facility within 96 hours: Yes.
[2023-07-09] MEDS ORDERED: MORPHINE 2 MG/ML CARPUJECT IVP PRN (16:19)
[2023-07-09] MEDS ORDERED: HALOPERIDOL 5 MG/ML VIAL IVP PRN ×2 (16:20→17:58)
[2023-07-09] MEDS ORDERED: HYOSCYAMINE SL 0.125 MG TABLET SL PRN (16:21)
[2023-07-09] MEDS: SODIUM CHLORIDE FLUSH 0.9% 10 ML SYRINGE IVP SCH ×2 (17:32→23:39)
[2023-07-09] MEDS: BUDESONIDE 0.5 MG/2 ML NEB INH SCH (18:13)
[2023-07-09] MEDS: guaiFENesin/CODEINE 5 ML UDC PO PRN (18:51)
[2023-07-09] MEDS ORDERED: IPRATROPIUM/ALBUTEROL 3 ML NEB INH SCH (19:00)
[2023-07-09] MEDS ORDERED: MONTELUKAST 10 MG TABLET PO SCH (21:00)
[2023-07-09] MEDS: MONTELUKAST 10 MG TABLET PO SCH (21:29)
[2023-07-09] MEDS: METOPROLOL TARTRATE 25 MG TABLET PO SCH (21:29)
[2023-07-09] MEDS: methylPREDNISolone SUCCINATE 125 MG/2 ML VIAL IVP SCH (21:31)
[2023-07-09] MEDS: MORPHINE 2 MG/ML CARPUJECT IVP PRN (21:31)
[2023-07-09] MEDS: ACETAMINOPHEN 325 MG TABLET PO PRN (21:41)
[2023-07-09] MEDS: IPRATROPIUM/ALBUTEROL 3 ML NEB INH PRN (23:10)
[2023-07-10] MEDS: guaiFENesin/CODEINE 5 ML UDC PO PRN ×3 (00:54→23:52)
[2023-07-10] MEDS: IPRATROPIUM/ALBUTEROL 3 ML NEB INH PRN ×4 (01:31→19:58)
[2023-07-10] MEDS: MORPHINE 2 MG/ML CARPUJECT IVP PRN ×5 (02:13→23:52)
[2023-07-10] MEDS: FUROSEMIDE 40 MG/4 ML VIAL IVP SCH ×2 (06:13→14:49)
[2023-07-10] MEDS: methylPREDNISolone SUCCINATE 125 MG/2 ML VIAL IVP SCH ×3 (06:13→21:46)
[2023-07-10 06:28] LABS: HCT - HEMATOCRIT 30.4 % (42.0-52.0); HGB - HEMOGLOBIN 9.5 g/dL (14.0-18.0); LYMPHOCYTES # (AUTO) 0.3 10^3/uL (1.5-3.5); LYMPHOCYTES % (AUTO) 3.5 %; MEAN CORPUSCULAR HEMOGLOBIN 29.5 pg (27.0-31.0); MEAN CORPUSCULAR HGB CONC 31.3 g/dL (32.0-36.0); MEAN CORPUSCULAR VOLUME 94.4 fL (80.0-94.0); MEAN PLATELET VOLUME 10.8 fL (7.4-11.4); MONOCYTES # (AUTO) 0.1 10^3/uL (0.0-1.0); MONOCYTES % (AUTO) 1.3 %; NEUTROPHILS # (AUTO) 7.9 10^3/uL (1.5-6.6); NEUTROPHILS % (AUTO) 94.7 %; PLT - PLATELET COUNT 138 10^3/uL (130-450); RED BLOOD COUNT 3.22 10^6/uL (4.70-6.10); RED CELL DISTRIBUTION WIDTH 17.2 % (12.0-15.0); WHITE BLOOD COUNT 8.4 x10^3/uL (4.8-10.8)
[2023-07-10 06:58] LABS: CALCIUM 8.8 mg/dL (8.5-10.3); CREATININE 1.7 mg/dL (0.6-1.3); POTASSIUM 4.3 mmol/L (3.5-4.5)
[2023-07-10] MEDS: BUDESONIDE 0.5 MG/2 ML NEB INH SCH ×2 (07:21→19:58)
--- NOTE | 2023-07-10 09:13 | PROVIDER PROGRESS NOTE ---
Assessment/Plan - Problem List (1) Delirium Assessment/Plan: The ED provider said he did not initially present with delirium. Today the family gave me details of the ER events: he did get Morphine iv, then became confused and agitated. He then needed additional sedative meds and restraints. He was admitted due to persistent delerium, and a 1:1 sitter was advised by ER provider, since that provider witnessed the patient get OOB and fell while in ER. I ordered a 1:1 sitter, and stopped all restraints. Upon admission to the Inpt setting, he has been sleepy but arousable and oriented x3, able to feed himself and use the urinal in bed. Today he spoke to his sister and brother who visited and was lucid. When he and I spoke about CODE status today, he is making clear decisions The sister confirmed for me that he was not using alcohol for the 3 days he was home. Plan: Try not to give sedatives, which seem to prolong his confusion OK to use Morphine for severe resp distress/air hunger, which makes him panicky. Cont his home dose of daily Venlafaxine I ordered prn Haldol for confusion w/ agitation Continue with his usual medications and management and try to avoid hypoxia (2) Bronchitis Conclusion/Plan: He has a wet and productive cough. I spoke to the sister today, she reported that while he was at home for 3 days, he had copious yellow and brown sputum. The CXR done in the ER showed no infiltrate, it shows his usual COPD with blebs A sputum culture was ordered and gram stain shows few WBCs and many GN Bacilli (all labs were reviewed) Plan: Today I will place the patient on oral Levaquin, not iv form, to minimize fluids Await spt culture results to tailor antibiotics If he spikes a fever, will obtain bld cx (3) Severe chronic obstructive pulmonary disease Conclusion/Plan: The patient has end-stage COPD. He has blebs and has had 3 spontaneous pneumothoraxes in the past. He is on supplemental O2. He is prescribed to get nebulized bronchodilators at home Plan: Cont DuoNebs every 4 hours as needed Cont Pulmicort nebulized twice daily I am planning a day of Solumedrol iv TID then transition to oral steroids, to minimize iv fluids, with plan for extremely slow taper over several months Cont Montelukast at bedtime, scheduled Mucinex BID and prn Robitussin w/ codeine. Cont IV morphine as needed for severe dyspnea and air hunger Continue with supplemental O2, and target saturation will be 89% and this COPD- er A referral to Hospice was placed by the ER provider. I spoke to the sister today, who confirmed she wants that. I reached out to Dr. Merchant who knows about the referral (4) Dilated cardiomyopathy Conclusion/Plan: Echo was done 06/26/2023. Cardiomyopathy is a new diagnosis for him. His Echo showed four-chamber dilatation with severe LV systolic failure and RV systolic failure. I suspect this may be from longstanding alcohol abuse. Plan: Cont new low-dose beta-1 selective beta-blockers if his BP can tolerate it Continue with IV twice daily diuretics Start Spironolactone If creatinine decreases, I will start him on an LUCIE or an ARB, otherwise will consider hydralazine plus nitrates, also if his BP will allow it Follow I's and O's Salt restricted diet ordered I will order as needed Hyoscyamine TL for managing any secretions This finding of dilated CMthy plus his end-stage COPD, do qualify him for Hospice. At the last recent admission, he told me he wants to be a Full Code and would go on the ventilator if needed. Today I repeated an advance care plan with him and he wants to be a DNR/DNI. (See separate entry of ACP) (5) Acute kidney injury superimposed on CKD Conclusion/Plan: The patient's baseline creatinine is 1.2. Since being home for 3 days and readmitted, the creatinine increased to 1.8. This is very likely due to cardio-renal syndrome On iv Lasix, his creat did improve slightly today to 1.7 (all labs were reviewed) Plan: Will continue with IV BID diuretics Follow I's and O's Avoid nephrotoxins Follow BMP daily (6) Anxiety Conclusion/Plan: The patient was witnessed to have panic attacks when he was having air hunger at the last recent admission. He also described generalized anxiety and claustrophobia Plan: I resumed his his Venlafaxine Haldol prn for confusion with agitation, has been ordered - Current Meds Current Meds: Current Medications Generic Name Dose Route Start Last Admin Trade Name Freq PRN Reason Stop Dose Admin Acetaminophen 650 mg 07/09/23 15:30 07/09/23 21:41 Acetaminophen 325 Mg Tablet PO 650 mg Q4HR PRN Administration Pain 1 to 4, or Fever Albuterol/Ipratropium 3 ml 07/09/23 16:17 07/10/23 07:22 Ipratropium/Albuterol 3 Ml Neb INH 3 ml Q4HR PRN Administration Wheezing Budesonide 0.5 mg 07/09/23 19:00 07/10/23 07:21 Budesonide 0.5 Mg/2 Ml Neb INH 0.5 mg RTBID JOSIAH Administration Furosemide 40 mg 07/10/23 06:00 07/10/23 06:13 Furosemide 40 Mg/4 Ml Vial IVP 40 mg BIDDIURETIC JOSIAH Administration Guaifenesin/Codeine Phosphate 5 ml 07/09/23 18:05 07/10/23 00:54 Guaifenesin/Codeine 5 Ml Udc PO 5 ml Q6HR PRN Administration Cough Methylprednisolone Sodium Succinate 125 mg 07/09/23 22:00 07/10/23 06:13 Methylprednisolone Succinate 125 Mg/2 Ml Vial IVP 125 mg TID JOSIAH Administration Metoprolol Tartrate 12.5 mg 07/09/23 21:00 07/09/23 21:29 Metoprolol Tartrate 25 Mg Tablet PO 12.5 mg BID JOSIAH Administration Montelukast Sodium 10 mg 07/09/23 21:00 07/09/23 21:29 Montelukast 10 Mg Tablet PO 10 mg QPM JOSIAH Administration Morphine Sulfate 2 mg 07/09/23 18:51 07/10/23 06:13 Morphine 2 Mg/Ml Carpuject IVP 2 mg Q4HR PRN Administration Dyspnea Sodium Chloride 10 ml 07/09/23 17:00 07/09/23 23:39 Sodium Chloride Flush 0.9% 10 Ml Syringe IVP 10 ml 0100,0900,1700 JOSIAH Administration - Lab Result Fish Bone Diagrams: 07/10/23 05:45 07/10/23 05:45 - Additional Planning My Orders: My Active Orders 07/09/23 15:30 Activity Orders [RC] Q2HR IO [RC] IOSHIFT Initiate Bowel Care Protocol [RC] .protocol Initiate Bronchodialator Rosie [RC] .PROTOCOL Initiate Line Care Protocol [RC] QSHIFT Initiate Personal Care Protoco [RC] .protocol Initiate Secretion Clearance P [RC] .PROTOCOL Oxygen Therapy [RC] .PRN Vital Signs [RC] 0800,1600,0000 Acetaminophen [Tylenol] 650 mg PO Q4HR PRN Ondansetron Inj [Zofran Inj] 4 mg IVP Q6HR PRN Sodium Chloride Flush 0.9% [Normal Saline Flush 0.9%] 10 ml IVP PRN PRN Code Status [OTHERS] Routine Condition of Patient [OTHERS] Routine DVT Prophylaxis [OTHERS] Routine 07/09/23 15:32 SCDs [RC] QSHIFT 07/09/23 Dinner Low Sodium Diet [DIET] 07/09/23 16:17 Ipratropium/Albuterol [Duoneb] 3 ml INH Q4HR PRN 07/09/23 16:21 Hyoscyamine [Levsin] 0.125 mg SL Q6H PRN 07/09/23 17:00 Sodium Chloride Flush 0.9% [Normal Saline Flush 0.9%] 10 ml IVP 0100,0900,1700 07/09/23 17:58 Haloperidol Inj [Haldol Inj] 1 mg IVP Q6H PRN 07/09/23 18:05 guaiFENesin/CODEINE [Robitussin AC] 5 ml PO Q6HR PRN 07/09/23 18:51 Morphine Inj (Carpuject) [Morphine (Carpuject)] 2 mg IVP Q4HR PRN 07/09/23 19:00 Budesonide [Pulmicort] 0.5 mg INH RTBID 07/09/23 19:20 CUL, RESPIRATORY [RM] Urgent 07/09/23 21:00 Metoprolol Tartrate [Lopressor] 12.5 mg PO BID Montelukast [Singulair] 10 mg PO QPM 07/09/23 22:00 methylPREDNISolone SUCCINATE [SOLU-Medrol (125MG VIAL)] 125 mg IVP TID 07/10/23 06:00 FUROSEMIDE INJ 40mg VIAL [LASIX INJ 40 mg VIAL] 40 mg IVP BIDDIURETIC 07/10/23 07:20 Acapella (Flutter Valve Device [RC] TID 07/10/23 09:00 Spironolactone [Aldactone] 25 mg PO DAILY Venlafaxine ER [Effexor ER] 225 mg PO DAILY 07/11/23 05:00 BMP - BASIC METABOLIC PANEL [CHEM] DAILYLAB BNP - B-NATRIURETIC PEPTIDE [CHEM] DAILYLAB CBC - COMP BLD CT W/AUTO DIFF [HEME] DAILYLAB MAGNESIUM [CHEM] DAILYLAB Subjective - Subjective Patient Reports: Feeling Better (He remembers being confused for the last 1-1/2 days. His cough is very annoying to him. He is still short of breath even with minimal activity laying in bed, like using the urinal.) Objective Vital Signs: Vital Signs - 24 hr 07/09/23 07/09/23 07/09/23 09:00 11:00 13:00 Temperature 3 C L 36.8 C Heart Rate 99 103 H 96 Heart Rate [ Brachial] Respiratory 23 22 20 Rate Blood Pressure 113/88 H 129/78 90/70 Blood Pressure [Right Brachial artery] O2 Saturation 96 94 95 If not protocol 4 4 4 : Oxygen Flow, liters/minute 07/09/23 07/09/23 07/09/23 15:00 17:14 17:15 Temperature 36.8 C 36.3 C L Heart Rate 100 Heart Rate [ 99 Brachial] Respiratory 22 24 Rate Blood Pressure 124/90 H Blood Pressure 118/91 H [Right Brachial artery] O2 Saturation 94 98 If not protocol 4 3 4 : Oxygen Flow, liters/minute 07/09/23 07/09/23 07/09/23 18:15 21:29 22:44 Temperature Heart Rate 96 Heart Rate [ Brachial] Respiratory 20 26 H Rate Blood Pressure 120/80 Blood Pressure [Right Brachial artery] O2 Saturation 94 If not protocol 3 4 : Oxygen Flow, liters/minute 07/09/23 07/09/23 07/10/23 23:10 23:33 01:30 Temperature 36.5 C Heart Rate 91 91 Heart Rate [ 94 Brachial] Respiratory 20 22 18 Rate Blood Pressure Blood Pressure 125/88 H [Right Brachial artery] O2 Saturation 95 If not protocol 2 4 2 : Oxygen Flow, liters/minute 07/10/23 07/10/23 07:22 08:00 Temperature 36.5 C Heart Rate 92 Heart Rate [ 95 Brachial] Respiratory 22 18 Rate Blood Pressure Blood Pressure 122/76 [Right Brachial artery] O2 Saturation 95 If not protocol 2 4 : Oxygen Flow, liters/minute Oxygen O2 Source Nasal cannula Oxygen Flow Rate 4 I&O (Last 24 Hrs): Intake and Output Totals x24h 07/08/23 07/09/23 07/10/23 23:59 23:59 23:59 Intake Total 375 1220 800 Output Total 800 650 550 Balance -425 570 250 General: Alert, Oriented x3, Moderate distress (resp distress with minimal ctivity) HEENT: Mucous membr. moist/pink Neck: Supple, No JVD Neuro: Alert, Non Focal Cardiovascular: Regular rate, No murmurs Respiratory: Other (Poor air movement in all lung nunez but no wheezing rales or rhonchi) Abdomen: Soft, No tenderness Extremities: No clubbing, No edema, No tenderness/swelling - Results Results: Laboratory Results WBC 8.4 x10^3/uL (4.8-10.8) 07/10/23 05:45 RBC 3.22 10^6/uL (4.70-6.10) L 07/10/23 05:45 Hgb 9.5 g/dL (14.0-18.0) L 07/10/23 05:45 Hct 30.4 % (42.0-52.0) L 07/10/23 05:45 MCV 94.4 fL (80.0-94.0) H 07/10/23 05:45 MCH 29.5 pg (27.0-31.0) 07/10/23 05:45 MCHC 31.3 g/dL (32.0-36.0) L 07/10/23 05:45 RDW 17.2 % (12.0-15.0) H 07/10/23 05:45 Plt Count 138 10^3/uL (130-450) 07/10/23 05:45 MPV 10.8 fL (7.4-11.4) 07/10/23 05:45 Neut # (Auto) 7.9 10^3/uL (1.5-6.6) H 07/10/23 05:45 Lymph # (Auto) 0.3 10^3/uL (1.5-3.5) L 07/10/23 05:45 [place] # (Auto) 0.1 10^3/uL (0.0-1.0) 07/10/23 05:45 Eos # (Auto) 0.0 10^3/uL (0.0-0.7) 07/10/23 05:45 Baso # (Auto) 0.0 10^3/uL (0.0-0.1) 07/10/23 05:45 Absolute Nucleated RBC 0.00 x10^3/uL 07/10/23 05:45 Nucleated RBC % 0.0 /100WBC 07/10/23 05:45 Bld Gas Analysis Time 19.02 07/08/23 19:00 Sample Site RIGHT RADIAL 07/08/23 19:00 ABG pH 7.45 (7.35-7.45) 07/08/23 19:00 ABG pCO2 47 mmHg (34-45) H 07/08/23 19:00 ABG pO2 64 mmHg (80-100) L 07/08/23 19:00 ABG HCO3 31.3 mmol/L (22.0-26.0) H 07/08/23 19:00 ABG Total CO2 32.7 MMOL/L (21.0-29.0) H 07/08/23 19:00 ABG O2 Saturation 91 % (94-98) L 07/08/23 19:00 ABG Base Excess 6.4 mmol/L (-2.0-3.0) H 07/08/23 19:00 Tarun Test POSITIVE 07/08/23 19:00 O2 Delivery Device NASAL CANNULA 07/08/23 19:00 O2 Liters/Min 2.00 LPM 07/08/23 19:00 Sodium 139 mmol/L (135-145) 07/10/23 05:45 Potassium 4.3 mmol/L (3.5-4.5) 07/10/23 05:45 Chloride 99 mmol/L (101-111) L 07/10/23 05:45 Carbon Dioxide 31 mmol/L (21-32) 07/10/23 05:45 Anion Gap 9.0 (6-13) 07/10/23 05:45 BUN 42 mg/dL (6-20) H 07/10/23 05:45 Creatinine 1.7 mg/dL (0.6-1.3) H 07/10/23 05:45 Estimated GFR (MDRD) 41 (>89) L 07/10/23 05:45 Glucose 129 mg/dL (74-104) H 07/10/23 05:45 Calcium 8.8 mg/dL (8.5-10.3) 07/10/23 05:45 Total Bilirubin 0.8 mg/dL (0.2-1.0) 07/08/23 16:30 AST 36 IU/L (10-42) 07/08/23 16:30 ALT 76 IU/L (10-60) H 07/08/23 16:30 Alkaline Phosphatase 45 IU/L (42-121) 07/08/23 16:30 Ammonia 32.4 umol/L (18-72) 07/09/23 11:48 Troponin I High Sens 40.3 ng/L (2.3-19.7) H* 07/08/23 16:30 B-Natriuretic Peptide 2127 pg/mL (5-100) H 07/10/23 05:45 Total Protein 5.8 g/dL (6.4-8.9) L 07/08/23 16:30 Albumin 3.8 g/dL (3.2-5.5) 07/08/23 16:30 Globulin 2.0 g/dL (2.1-4.2) L 07/08/23 16:30 Albumin/Globulin Ratio 1.9 (1.0-2.2) 07/08/23 16:30 Lipase < 10 U/L (11-82) L 07/08/23 16:30 Stl C. diff Tox B Gene NEGATIVE (NEGATIVE) 07/09/23 06:24 - Procedures Procedures: Procedures COLONOSCOPY (01/21/14) DRAINAGE OF R PLEURAL CAV WITH DRAIN DEV, PERC APPROACH (11/06/15) REMOVAL OF DRAIN DEV FROM R PLEURAL CAV, MANAGER CAR APPROACH (11/06/15)
[2023-07-10] MEDS ORDERED: oxyCODONE 5 MG TABLET PO PRN (09:18)
[2023-07-10] MEDS: METOPROLOL TARTRATE 25 MG TABLET PO SCH ×2 (09:18→21:45)
[2023-07-10] MEDS: SPIRONOLACTONE 25 MG TABLET PO SCH (09:22)
[2023-07-10] MEDS: VENLAFAXINE ER 75 MG CAPSULE PO SCH (09:22)
[2023-07-10] MEDS: SODIUM CHLORIDE FLUSH 0.9% 10 ML SYRINGE IVP SCH ×3 (09:22→15:42)
[2023-07-10] MEDS: levoFLOXacin 250 MG TABLET PO SCH (09:27)
--- NOTE | 2023-07-10 13:53 | ADVANCE CARE PLANNING NOTE ---
Advance Care Planning - Planning Encounter Date: 07/10/23 Time: 13:00 Purpose: To re-address his CODE BLUE status. Parties in Attendance: I spoke to the patient in his hospital room. Decisional Capacity of the Patient: He has full decisional capacity, he is alert and oriented x3. - Diagnosis for Encounter (1) Severe chronic obstructive pulmonary disease Summary: The patient is deemed to have severe, end-stage COPD, blebs seen on chest x-ray that have caused spontaneous pneumothorax 3 times in his Hx, and he is O2 dependent 13/03. In addition to COPD, he has a new diagnosis made just this month of dilated cardiomyopathy with an LVEF of 10% and a severely depressed RVEF. The combination of diagnoses gives him a poor prognosis of survival less than 1 year, possibly less than 6 months. - Encounter Subjective/Patient's Story: The patient has a history of smoking, quit less than a year ago. He has a history of heavy alcohol intake and also quit less than a year ago. He has COPD and has been on home O2 for several months. When he was just discharged home 3 days ago he realized how helpless he was so moved in with his sister, had incontinence of bowel, a persistent cough with sputum production and marked weakness. He presented back to the hospital and is admitted now. Objective/Medical Story: The patient was just admitted here earlier this month, discharged just 3 days ago, but came back now. It was a COPD exacerbation with pneumonia that brought him in then. When I discussed his CODE BLUE wishes at that time, he said he wanted to be a full code and wanted to be put on a ventilator if needed. The patient is deemed to have severe, end-stage COPD, blebs seen on chest x-ray that have caused spontaneous pneumothorax 3 times in his Hx, and he is O2 dependent /. In addition to COPD, he has a new diagnosis made just this month of dilated cardiomyopathy with an LVEF of 10% and a severely depressed RVEF. The combination of diagnoses gives him a poor prognosis of survival less than 1 year, possibly less than 6 months. Goals of Care: He is ready to have Hospice for end-of-life, he said. He wants to be a DNR/DNI. He understands that he cannot take care of himself and his sister is also unable to take care of him. He thought that hospice "sends nurses to the house to take care of him all day". I explained what hospice does and that he will need to go somewhere for increased caregiving but hospice will be his medical provider. Plan: I will complete a POLST form now with the pt, stating DNR, and Selective management, and change his CODE status in his orders to DNR. Code Status: Do Not Attempt Resuscitation Time spent on advance care plannin min
[2023-07-10] MEDS: ACETAMINOPHEN 325 MG TABLET PO PRN ×2 (15:42→19:54)
[2023-07-10] MEDS: SODIUM CHLORIDE FLUSH 0.9% 10 ML SYRINGE IVP PRN (19:50)
[2023-07-10] MEDS: MONTELUKAST 10 MG TABLET PO SCH (21:46)
[2023-07-11] MEDS: ONDANSETRON 4 MG/2 ML VIAL IVP PRN (04:09)
[2023-07-11] MEDS: MORPHINE 2 MG/ML CARPUJECT IVP PRN ×3 (04:09→16:10)
[2023-07-11 05:48] LABS: BASOPHILS % (AUTO) 0.1 %; HCT - HEMATOCRIT 33.7 % (42.0-52.0); HGB - HEMOGLOBIN 10.5 g/dL (14.0-18.0); LYMPHOCYTES # (AUTO) 0.5 10^3/uL (1.5-3.5); LYMPHOCYTES % (AUTO) 4.2 %; MEAN CORPUSCULAR HEMOGLOBIN 29.2 pg (27.0-31.0); MEAN CORPUSCULAR HGB CONC 31.2 g/dL (32.0-36.0); MEAN CORPUSCULAR VOLUME 93.6 fL (80.0-94.0); MEAN PLATELET VOLUME 10.7 fL (7.4-11.4); MONOCYTES # (AUTO) 0.7 10^3/uL (0.0-1.0); MONOCYTES % (AUTO) 5.7 %; NEUTROPHILS % (AUTO) 89.6 %; NRBC ABSOLUTE COUNT (AUTO) 0.02 x10^3/uL; NUCLEATED RED BLOOD CELLS AUTO 0.2 /100WBC; PLT - PLATELET COUNT 170 10^3/uL (130-450); RED CELL DISTRIBUTION WIDTH 17.8 % (12.0-15.0); WHITE BLOOD COUNT 12.3 x10^3/uL (4.8-10.8)
[2023-07-11 06:06] LABS: CALCIUM 8.9 mg/dL (8.5-10.3); CREATININE 2.1 mg/dL (0.6-1.3); MAGNESIUM 2.1 mg/dL (1.7-2.3); POTASSIUM 4.8 mmol/L (3.5-4.5)
[2023-07-11] MEDS: FUROSEMIDE 40 MG/4 ML VIAL IVP SCH ×2 (06:25→14:58)
[2023-07-11] MEDS: BUDESONIDE 0.5 MG/2 ML NEB INH SCH ×2 (07:19→19:49)
[2023-07-11] MEDS: IPRATROPIUM/ALBUTEROL 3 ML NEB INH PRN (07:19)
[2023-07-11] MEDS: VENLAFAXINE ER 75 MG CAPSULE PO SCH (07:42)
[2023-07-11] MEDS: levoFLOXacin 250 MG TABLET PO SCH (07:43)
[2023-07-11] MEDS: SPIRONOLACTONE 25 MG TABLET PO SCH (07:43)
[2023-07-11] MEDS: predniSONE 20 MG TABLET PO SCH (07:43)
[2023-07-11] MEDS: METOPROLOL TARTRATE 25 MG TABLET PO SCH ×2 (07:44→20:56)
[2023-07-11] MEDS: SODIUM CHLORIDE FLUSH 0.9% 10 ML SYRINGE IVP SCH ×2 (07:50→16:11)
--- NOTE | 2023-07-11 18:10 | PROVIDER PROGRESS NOTE ---
Subjective - Prog Note Date Prog Note Date: 07/11/23 Prog Note Time: 18:08 - Subjective Subjective: He has been grumpy with the nurses. Initially was refusing IV Lasix. Was angry that he was getting blood draws and vital signs. He wants to just be left alone. He is already identified that he would like to go to hospice when he leaves here. When I went in to discuss all of this with him this morning, he stated that he was just tired. Everything seems to be happening all the time and to many people keep on coming into his room. I asked him if it was okay if we transition him to comfort measures but still gave him some of his medications and he said that that would be great. He just wants to get better from a shortness of breath and edema and is willing to do IV Lasix and then he would just like to go home with hospice. Current Medications - Current Medications Current Medications: Active Medications Acetaminophen (Acetaminophen 325 Mg Tablet) 650 mg PO Q4HR PRN PRN Reason: Pain 1 to 4, or Fever Last Admin: 07/10/23 19:54 Dose: 650 mg Albuterol/Ipratropium (Ipratropium/Albuterol 3 Ml Neb) 3 ml INH Q4HR PRN PRN Reason: Wheezing Last Admin: 07/11/23 07:19 Dose: 3 ml Budesonide (Budesonide 0.5 Mg/2 Ml Neb) 0.5 mg INH RTBID [facility] Last Admin: 07/11/23 07:19 Dose: 0.5 mg Furosemide (Furosemide 40 Mg/4 Ml Vial) 40 mg IVP BIDDIURETIC JOSIAH Last Admin: 07/11/23 14:58 Dose: 40 mg Guaifenesin/Codeine Phosphate (Guaifenesin/Codeine 5 Ml Udc) 5 ml PO Q6HR PRN PRN Reason: Cough Last Admin: 07/10/23 23:52 Dose: 5 ml Haloperidol (Haloperidol 5 Mg/Ml Vial) 1 mg IVP Q6H PRN PRN Reason: Agitation Hyoscyamine (Hyoscyamine Sl 0.125 Mg Tablet) 0.125 mg SL Q6H PRN PRN Reason: Secretions Levofloxacin (Levofloxacin 250 Mg Tablet) 750 mg PO DAILY JOSIAH Last Admin: 07/11/23 07:43 Dose: 750 mg Metoprolol Tartrate (Metoprolol Tartrate 25 Mg Tablet) 12.5 mg PO BID [facility] Last Admin: 07/11/23 07:44 Dose: 12.5 mg Montelukast Sodium (Montelukast 10 Mg Tablet) 10 mg PO QPM [facility] Last Admin: 07/10/23 21:46 Dose: 10 mg Morphine Sulfate (Morphine 2 Mg/Ml Carpuject) 2 mg IVP Q4HR PRN PRN Reason: Dyspnea Last Admin: 07/11/23 16:10 Dose: 2 mg Ondansetron HCl (Ondansetron 4 Mg/2 Ml Vial) 4 mg IVP Q6HR PRN PRN Reason: Nausea / Vomiting Last Admin: 07/11/23 04:09 Dose: 4 mg Oxycodone HCl (Oxycodone 5 Mg Tablet) 5 mg PO Q6H PRN PRN Reason: Severe Pain (Level 7-10) Prednisone (Prednisone 20 Mg Tablet) 40 mg PO DAILYWM [facility] Last Admin: 07/11/23 07:43 Dose: 40 mg Sodium Chloride (Sodium Chloride Flush 0.9% 10 Ml Syringe) 10 ml IVP PRN PRN PRN Reason: NEEDED PER PROVIDER ORDERS Last Admin: 07/10/23 19:50 Dose: 10 ml Sodium Chloride (Sodium Chloride Flush 0.9% 10 Ml Syringe) 10 ml IVP 0100,09 00,1700 [facility] Last Admin: 07/11/23 16:11 Dose: 10 ml Spironolactone (Spironolactone 25 Mg Tablet) 25 mg PO DAILY [facility] Last Admin: 07/11/23 07:43 Dose: 25 mg Venlafaxine HCl (Venlafaxine Er 75 Mg Capsule) 225 mg PO DAILY [facility] Last Admin: 07/11/23 07:42 Dose: 225 mg Albuterol 2.5 mg INH Q4H PRN 04/24/22 Fluticasone/Salmeterol [Advair Hfa 115-21 Mcg Inhaler] 2 puffs PO BID 06/27/23 Ipratropium/Albuterol [Duoneb] 3 ml INH Q4H PRN 06/27/23 Venlafaxine ER [Effexor ER] 225 mg PO DAILY 06/27/23 Ipratropium [Atrovent] 2 inh QID 07/09/23 Objective - Vital Signs/Intake & Output Reviewed Vital Signs: Yes Vital Signs: Vital Signs x48h Temp Pulse Resp BP Pulse Ox O2 Flow Rate 07/11/23 15:52 36.5 C 81 20 108/75 97 2 Intake & Output: Intake & Output 07/08/23 07/09/23 07/10/23 07/11/23 23:59 23:59 23:59 23:59 Intake Total 375 1220 2160 960 Output Total 059 701 0940 425 Balance -425 570 810 535 - Objective General Appearance: positive: No acute distress, Alert, Other (Very pale, fatigued gentleman. Very dramatic long black hair that falls below shoulders, as well as a black and [place].He looks remarkably like Rasputin) Eyes Bilateral: positive: PERRL, EOMI ENT: positive: No signs of dehydration, Other (Bilateral temporal wasting) Neck: positive: No JVD. negative: Stiff neck Respiratory: positive: Rales, Other (Short of breath when he tries to get up to go to the bathroom. Gets tachypneic and has to sit down. Recovers in about a minute) Cardiovascular: positive: Regular rate & rhythm, Systolic murmur Abdomen: positive: Non-tender, No organomegaly, Nml bowel sounds Skin: positive: Warm, Dry, Pallor Extremities: positive: Full ROM, Pedal edema Neurologic/Psychiatric: positive: Oriented x3, CN's nml (2-12), Motor nml (But very easily exhausted with minimal exertion of getting up out of bed) - Lab Results Fish Bones: 07/11/23 05:22 07/11/23 05:22 Other Labs: Lab Results x24hrs 07/11/23 07/11/23 07/11/23 Range/Units 05:22 05:22 05:22 WBC 12.3 H (4.8-10.8) x10^3/uL RBC 3.60 L (4.70-6.10) 10^6/uL Hgb 10.5 L (14.0-18.0) g/dL Hct 33.7 L (42.0-52.0) % MCV 93.6 (80.0-94.0) fL MCH 29.2 (27.0-31.0) pg MCHC 31.2 L (32.0-36.0) g/dL RDW 17.8 H (12.0-15.0) % Plt Count 170 (130-450) 10^3/uL MPV 10.7 (7.4-11.4) fL Neut # (Auto) 11.0 H (1.5-6.6) 10^3/uL Lymph # (Auto) 0.5 L (1.5-3.5) 10^3/uL [place] # (Auto) 0.7 (0.0-1.0) 10^3/uL Eos # (Auto) 0.0 (0.0-0.7) 10^3/uL Baso # (Auto) 0.0 (0.0-0.1) 10^3/uL Absolute Nucleated RBC 0.02 x10^3/uL Nucleated RBC % 0.2 /100WBC Sodium 139 (135-145) mmol/L Potassium 4.8 H (3.5-4.5) mmol/L Chloride 96 L (101-111) mmol/L Carbon Dioxide 33 H (21-32) mmol/L Anion Gap 10.0 (6-13) BUN 62 H (6-20) mg/dL Creatinine 2.1 H (0.6-1.3) mg/dL Estimated GFR (MDRD) 32 L (>89) Glucose 160 H (74-104) mg/dL Calcium 8.9 (8.5-10.3) mg/dL Magnesium 2.1 (1.7-2.3) mg/dL B-Natriuretic Peptide 2616 H (5-100) pg/mL Assessment/Plan - Problem List (1) Delirium Impression: He was admitted as delirium after recent hospitalization for CHF. He has a known history of alcohol abuse in the past. The ED provider said he did not initially present with delirium. the family gave hospitalist details of the ER events 07/09: he did get Morphine iv, then became confused and agitated. He then needed additional sedative meds and restraints. He was admitted due to persistent delerium, and a 1:1 sitter was advised by ER provider, since that provider witnessed the patient get OOB and fell while in ER. I ordered a 1:1 sitter, and stopped all restraints. Upon admission to the Inpt setting, he has been sleepy but arousable and oriented x3, able to feed himself and use the urinal in bed. 07/10 he spoke to his sister and brother who visited and was lucid. 1 hospitalist spoke to him about CODE STATUS on July 10, he was making clear decisions.His sister confirm that he not had any alcohol upon discharge from July 06 until he was seen in the emergency room July 09. And prior to that he had no alcohol while he was in the hospital. Today, the patient is alert, oriented to person, place and situation. He is tired of being sick. He is tired of being always short of breath. He is tired of being in the hospital. He states that this is the end for him and he wants to be left alone is much as possible but still wanting treatment while he is here. Once he leaves here, he recognizes that in hospice he will not get intravenous medications or IV medications. Plan: I have reiterated our plan to use morphine as needed shortness of breath and anxiety to him and the nurses. I told him that we will definitely try to minimize our intrusion into his room. Will try not to wake him up with unnecessary lab draws or vital signs. (2) Bronchitis Conclusion/Plan: After discharge from the hospital, he had a copious yellow and brown sputum producing cough. The CXR done in the ER showed no infiltrate, it shows his usual COPD with blebs. While here, the cough has been less. It is still there but not severe. A sputum culture was ordered and gram stain shows few WBCs and many GN Bacilli (all labs were reviewed). Identification of bacteria is still pending today.He was placed on oral Levaquin yesterday to minimize IV fluids. Plan: Await spt culture results to tailor antibiotics If he spikes a fever, will obtain bld cx (3) Severe chronic obstructive pulmonary disease Conclusion/Plan: The patient has end-stage COPD. He has blebs and has had 3 spontaneous pneumothoraxes in the past. He is on supplemental O2. He is prescribed to get nebulized bronchodilators at home Plan: Cont DuoNebs every 4 hours as needed Cont Pulmicort nebulized twice daily He was on methylprednisolone 125 mg approximately every 8 hours. His last dose IV was July 10 at approximately 9:45 PM. He is now on Deltasone 40 mg daily. He will be tapered slowly over the next few weeks. Cont Montelukast at bedtime, scheduled Mucinex BID and prn Robitussin w/ codeine. Cont IV morphine as needed for severe dyspnea and air hunger Continue with supplemental O2, and target saturation will be 89% and this COPD- er Hospice referral made yesterday. I rediscussed the plan with him today and he confirms that he still wants to move forward with discharge to hospice. However his sister has stated that she cannot take care of him at her home. And we are now looking for long-term facility placement for the end-of-life care. (4) Dilated cardiomyopathy Conclusion/Plan: Echo was done 06/26/2023. Cardiomyopathy is a new diagnosis for him. His Echo showed four-chamber dilatation with severe LV systolic failure and RV systolic failure. The cardiomyopathy is felt to be from longstanding alcohol abuse. He was started on low-dose beta-dayanara, twice daily IV diuretics, spironolactone. We are waiting to see how he responds to this and we may be slowly adding an LUCIE or an ARB or hydralazine depending on how he tolerates this. So far he has not had any substantial negative urine output with this. He does not want me to change his IV Lasix dose for now. (5) Acute kidney injury superimposed on CKD Conclusion/Plan: Baseline creatinine is 1.2. Between being discharged and readmitted his creatinine increased to 1.8. He is been aggressively diuresed in an effort to control his CHF and his creatinine is now 2.1 today. Blood pressure is not excessively low. He was in the 90s on July 09, but since then has bounced back up into the 120s systolic. As such I think his rising creatinine is more due to prerenal azotemia from our diuresis than reduced flow from cardiomyopathy. Plan: Continue twice daily diuretics and consider decreasing dosing starting tomorrow if his creatinine bumped again. Continue to follow intake and output. Avoid nephrotoxins. And follow the BMP and BNP daily. (6) Anxiety Conclusion/Plan: The patient was witnessed to have panic attacks when he was having air hunger at the last recent admission. He also described generalized anxiety and claustrop hobia Plan: I resumed his his Venlafaxine Haldol prn for confusion with agitation, has been ordered Morphine for agitation and shortness of breath added today by me
[2023-07-11] MEDS: ACETAMINOPHEN 325 MG TABLET PO PRN (20:55)
[2023-07-11] MEDS: MONTELUKAST 10 MG TABLET PO SCH (20:56)
[2023-07-12] MEDS: SODIUM CHLORIDE FLUSH 0.9% 10 ML SYRINGE IVP SCH ×4 (01:38→18:17)
[2023-07-12] MEDS: MORPHINE 2 MG/ML CARPUJECT IVP PRN ×2 (03:00→10:15)
[2023-07-12] MEDS: SODIUM CHLORIDE FLUSH 0.9% 10 ML SYRINGE IVP PRN (03:01)
[2023-07-12] MEDS: FUROSEMIDE 40 MG/4 ML VIAL IVP SCH ×2 (05:43→18:17)
[2023-07-12] MEDS: BUDESONIDE 0.5 MG/2 ML NEB INH SCH (07:09)
[2023-07-12] MEDS: IPRATROPIUM/ALBUTEROL 3 ML NEB INH PRN (07:09)
[2023-07-12 08:19] VITALS: BP 133/97; O2SAT 92
[2023-07-12] MEDS: VENLAFAXINE ER 75 MG CAPSULE PO SCH (08:25)
[2023-07-12] MEDS: levoFLOXacin 250 MG TABLET PO SCH (08:26)
[2023-07-12] MEDS: SPIRONOLACTONE 25 MG TABLET PO SCH (08:26)
[2023-07-12] MEDS: METOPROLOL TARTRATE 25 MG TABLET PO SCH (08:27)
[2023-07-12] MEDS: predniSONE 20 MG TABLET PO SCH (08:28)
[2023-07-12] MEDS: ONDANSETRON 4 MG/2 ML VIAL IVP PRN (08:30)
[2023-07-12] MEDS ORDERED: LORazepam 2 MG/ML VIAL IVP STA (12:39)
[2023-07-12] MEDS ORDERED: LORazepam 2 MG/ML VIAL ONE (12:50)
--- NOTE | 2023-07-12 13:10 | DISCHARGE SUMMARY ---
"Discharge Summary Admit Date: 07/09/23 Discharge Date: 07/12/23 Discharging Provider: Flores Hatch MD Primary Care Provider: ZHENG Valerio Code Status: Do Not Attempt Resuscitation Discharge Disposition: 20 - DIAGNOSES Discharge Diagnoses with Status of Each Condition: 1. Sudden 2. Dilated cardiomyopathy 3. End-stage COPD with blebs 4. Acute on chronic kidney disease 5. Acute on chronic congestive heart failure, systolic 6. Bronchitis 7. Enterobacter cloacae infection 8. Seizure at the time of sudden - HPI History of Present Illness: This is a 62-year-old male who is an ex-alcoholic, and has a history of end- stage COPD, has blebs and spontaneous pneumothorax x3 in the past. He lives with his sister and is on home oxygen. He was discharged from here 3 days ago after being hospitalized from 06/26 to 07/06 for treating a COPD exacerbation and pneumonia. An inpatient Echo was done that showed four-chamber dilatation, with severe LV and RV systolic failure. Due to deconditioning, he initially was to be discharged to a SNF for PT and OT rehab, but while waiting to be accepted to a SNF, he progressed with PT and OT and was able to be independent, thus he was discharged to home with a Home Health referral for PT, OT and Bath Aide.. Patient presented to the ER yesterday for complaints of worsening shortness of breath. He said he was taking all his prescriptions including the new ones and was on his home O2. The ER evaluation showed COPD with blebs, no pneumonia on CXR, oxygen saturation was 92% and above and there was no indication for him to be admitted last night. He stayed in the ER overnight however, to be seen by Barrel Stave Inspector today, in order to accelerate the referral to Hospice. Overnight he became confused, pulled off all his equipment, walked into the staff lounge and urinated into the trash can, could not be redirected and needed to be put in restraints and sedated. When restraints were removed this morning, he got out of bed and fell while walking in his ER room. A CT head was done that was unremarkable. He was still disoriented however. The ER provider spoke to me about this patient. He will be admitted to the Hospitalist service for managing delirium and chronic respiratory failure. - Past Medical History Cardiovascular: reports: Congestive heart failure (recently Dx by Echo) Respiratory: reports: COPD (on home O2), Sleep apnea, Other (3 episodes of spontaneous pneumothorax) Neuro: reports: None Endocrine/Autoimmune: reports: None GI: reports: None, Other (Had liver problems when drank alot, quit alcohol abuse 1 year ago) : reports: Other (recent scrotal swelling from R heart failure) HEENT: reports: None Psych: reports: Depression, Anxiety, Panic attacks, ADD/ADHD, Claustrophobia Musculoskeletal: reports: None Derm: reports: None MRSA Hx?: No - Past Surgical History HEENT: reports: Tonsil/Adenoidectomy - CONSULTS | PROCEDURES Procedures: Chest x-ray with bullous changes to the right lower lobe that are stable. No acute cardiopulmonary process. Chest//thorax CT angiogram did not have pulmonary emboli. No evidence of acute aortic syndrome or aortic aneurysm. The lungs did not have consolidation but he had alveolar edema superimposed on severe centrilobular and bullous emphysematous changes. A large pneumatocele in the right lower lobe that was previously present now appears to contain dependent layering fluid, mild in overall severity. No pleural effusions. No nodules. Heart size was normal. Head CT without acute intracranial abnormality Respiratory culture with Enterobacter cloacae complex - HOSPITAL COURSE Hospital Course: The patient's delirium gradually resolved. We did order as needed Haldol. While he does have a history of alcohol abuse, his last alcohol use was many days ago and we do not necessarily think he was going through alcohol withdrawal. He may have had a reaction to the morphine superimposed cardiomyopathy with some hypoxia that resulted in the agitation. As his delirium resolved, the patient was much clearer and mentation and expressed the desire to transition to a palliative care model. He spoke to the hospitalist on July 10 and stating that he wanted to go to hospice. He also wanted to reduce the amount of blood draws, vital signs, etc.We treated his bronchitis and were awaiting sputum culture results. He received antibiotics, steroids, nebulizers. Congestive heart failure was treated with IV diuretics, low-dose beta-blockers.Edema was gradually receding. But he was increasingly fatigued. Exceedingly short of breath with just easy exertion such as getting up out of bed to go to the bathroom. Cough is improving. Sputum production was getting less. Our next item was to transition him to a long-term care facility that would be able to take care of him because his sister Could not take care of him in her home. On the day of , the patient complained of generalized abdominal pain that was mild to moderate. Nonstop, unremitting. No change in bowel habits. No fever, no chills. Shortness of breath was moderate to severe with activity. He was comfortable laying in bed in upright position but if he got up to go to the bathroom he will become very short of breath. He was receiving IV diuretics, on beta-blockers. I was about to adjust his antibiotics on the basis of a sputum culture that grew out Enterobacter. He was receiving as needed morphine for shortness of breath and pain. He was not on telemetry in order to reduce the amount of interventions that would make him uncomfortable. He got up to go to the bathroom and became suddenly very short of breath and nursing placed him back in bed when he had a seizure. He then briefly recovered and had another seizure and rapid response was called. I ordered Ativan 2 mg IV push with a differential including alcohol withdrawal seizure versus some type of brain injury. A CT of the head done on admission was negative. As I was contemplating workup, the patient . There was sudden loss of respiration and pulse. Eyes were fixed and dilated. His sister happened to be at the bedside because she was filling out paperwork with regards to arrangements. She was able to spend his last few moments with him. was pronounced at 12:45 PM. As I fill out his is difficult, I will be presuming sudden from probable cardiac arrhythmia in the face of dilated cardiomyopathy. Contributing factors would be the end-stage COPD, and alcohol abuse. He may have had a seizure due to to the lack of perfusion to his brain. Greater than 30 minutes was spent coordinating With home,, discussing cause of with his sister. This document was made in part using voice recognition software. While efforts are made to proofread this document, sound alike and grammatical errors may occur. - ALLERGIES Allergies/Adverse Reactions: Allergies Allergy/AdvReac Type Severity Reaction Status Date / Time No Known Drug Allergies Allergy Verified 07/09/23 16:04 - MEDICATIONS Home Medications: Ambulatory Orders Medication Instructions Recorded Confirmed Albuterol 2.5 mg INH Q4H PRN 04/24/22 07/09/23 Fluticasone/Salmeterol [Advair Hfa 2 puffs PO BID 06/27/23 07/09/23 115-21 Mcg Inhaler] Ipratropium/Albuterol [Duoneb] 3 ml INH Q4H PRN 06/27/23 07/09/23 Venlafaxine ER [Effexor ER] 225 mg PO DAILY 06/27/23 07/09/23 Furosemide [Lasix] 20 mg PO DAILY PRN #30 tablet 07/06/23 07/09/23 Montelukast [Singulair] 10 mg PO QPM #30 tablet 07/06/23 07/09/23 oxyCODONE [Roxicodone] 5 mg PO Q6H PRN #5 tab 07/06/23 07/09/23 Ipratropium [Atrovent] 2 inh QID 07/09/23 07/09/23 - LABS Result Diagrams: 07/11/23 05:22 07/11/23 05:22"
== END 2023-07-12 12:45 | disposition expired | DRG 314 ==
LOC: EDUNIT# → ED 15:58 → MS2 07-09 15:30
PROVIDERS: ADMIT Internal Medicine; ATTEND Specialist
DX: I42.0 Dilated cardiomyopathy (principal); I50.23 Acute on chronic systolic (congestive) heart failure; J96.11 Chronic respiratory failure with hypoxia; N17.9 Acute kidney failure, unspecified; J44.89 Other specified chronic obstructive pulmonary disease; J43.2 Centrilobular emphysema; Z99.81 Dependence on supplemental oxygen; R10.84 Generalized abdominal pain; R56.9 Unspecified convulsions; R41.0 Disorientation, unspecified; F10.11 Alcohol abuse, in remission; Z78.1 Physical restraint status; R53.1 Weakness; J98.4 Other disorders of lung; B96.89 Other specified bacterial agents as the cause of diseases classified elsewhere; G47.30 Sleep apnea, unspecified; Z87.891 Personal history of nicotine dependence; N18.9 Chronic kidney disease, unspecified; F41.9 Anxiety disorder, unspecified; Z66 Do not resuscitate
CPT/HCPCS: 36415; 36600; 70450; 71045; 71275; 80048; 80053; 82140; 82803; 83690; 83735; 83880; 84484; 85025; 87070; 87077; 87181; 87205; 87493; 93005; 94640; 96372; 96374; 96375; 96376; 97162; 97166; 99285; A9270; J1200; J2060; J7512; J7626; Q9967